=== PATIENT | female | born 1945 | race Hispanic/Latino ===

== ENCOUNTER 2017-09-06 09:03 | Inpatient (IN) | payer MEDICARE, BC ==
[2017-09-06 09:11] VITALS: BMI 24.0
[2017-09-06] MEDS ORDERED: Sodium Chloride 0.9% 1,000 ML IV STA (09:38)
--- NOTE | 2017-09-06 09:44 | ED PDOC ---
Arrival/HPI - General Chief Complaint: Abdominal Pain Time Seen by Provider: 09/06/17 09:10 Historian: Patient - History of Present Illness Narrative History of Present Illness (Text): 09/06/17 09:41 Patient c/o low abdominal pain R>L started from last night and associated with nausea. Patient denies nausea/diarrhea/constipation/urinary symptoms/fever/ chest pain/SOB. Patient sts she was diagnosed with UTI 3 days ago by her PMD and was put on Amoxicillin 2 days ago. 09/06/17 09:46 Time/Duration: Other (from last night) Symptom Onset: Gradual Symptom Course: Worsening Quality: Gas Like Activities at Onset: Rest Past Medical History - Provider Review Nursing Documentation Reviewed: Yes - Infectious Disease Hx of Infectious Diseases: None - Tetanus Immunization Tetanus Immunization: Unknown - Reproductive Menopause: Yes - Cardiac Hx Cardiac Disorders: Yes Hx Hypertension: Yes Hx Pacemaker: No - Pulmonary Hx Respiratory Disorders: Yes Hx Chronic Obstructive Pulmonary Disease (COPD): Yes Hx Emphysema: Yes - Neurological Hx Paralysis: No - HEENT Hx Cataracts: (removal) - Renal Hx Renal Disorder: No - Endocrine/Metabolic Hx Endocrine Disorders: Yes Hx Diabetes Mellitus Type 2: Yes - Hematological/Oncological Hx Blood Disorders: Yes Hx Blood Transfusions: Yes (+ iron replacement) Hx Blood Transfusion Reaction: No - Integumentary Hx Dermatological Disorder: No - Musculoskeletal/Rheumatological Hx Musculoskeletal Disorders: Yes Hx Arthritis: Yes - Gastrointestinal Hx Gastrointestinal Disorders: Yes Hx Diverticulitis: Yes Hx Gastritis: Yes Hx Gastroesophageal Reflux: Yes - Genitourinary/Gynecological Hx Genitourinary Disorders: No - Psychiatric Hx Psychophysiologic Disorder: No Hx Emotional Abuse: No Hx Physical Abuse: No Hx Substance Use: No - Surgical History Other/Comment: bilateral knee replacement - Anesthesia Hx Anesthesia: Yes Hx Anesthesia Reactions: No Hx Malignant Hyperthermia: No - Suicidal Assessment Feels Threatened In Home Enviroment: No Family/Social History - Physician Review Nursing Documentation Reviewed: Yes Family/Social History: Unknown Family HX Smoking Status: Former Smoker Hx Alcohol Use: No Hx Substance Use: No Allergies/Home Meds Allergies/Adverse Reactions: Allergies levofloxacin [From Levaquin] Allergy (Severe, Verified 01/07/16 08:13) PAIN Home Medications: Home Meds Medication Instructions Recorded Confirmed Montelukast [Singulair] 10 mg PO HS 12/14/13 09/06/17 amLODIPine [Norvasc] 5 mg PO QAM 05/26/15 09/06/17 Metformin HCl [Metformin] 1,000 mg PO BID 08/19/15 09/06/17 Tiotropium [Spiriva] 18 mcg IH DAILY 08/19/15 09/06/17 ALPRAZolam [Xanax] 1 mg PO TID PRN 01/07/16 09/06/17 Aspirin [Ecotrin] 81 mg PO DAILY 01/07/16 09/06/17 Ferrous Fumarate [Sophy-Sequel] 500 mg PO DAILY 01/07/16 09/06/17 Glimepiride [amaRYL] 2 mg PO DAILY 01/07/16 09/06/17 Magnesium Oxide [Pharmassure 500 mg PO DAILY 01/07/16 09/06/17 Magnesium] Multivitamin [One Daily] 1 tab PO DAILY 01/07/16 09/06/17 Lvrgq-3-Mcny Ethyl Esters [OMEGA 3] 500 mg PO DAILY 01/07/16 09/06/17 Pravastatin Sodium [Pravachol] 20 mg PO HS 01/07/16 09/06/17 Valsartan [Diovan] 320 mg PO QAM 01/07/16 09/06/17 Omeprazole [Prilosec] 20 mg PO DAILY 02/02/16 09/06/17 Bupropion HCl [Bupropion HCl Xl] 300 mg PO DAILY 06/07/17 09/06/17 H A Joint 1 cap PO DAILY 06/07/17 09/06/17 Meloxicam [Mobic] 15 mg PO DAILY 06/07/17 09/06/17 Ondansetron [Zofran] 4 mg PO Q4H PRN 06/07/17 09/06/17 QUEtiapine [SEROquel] 100 mg PO BID 06/07/17 09/06/17 Vortioxetine Hydrobromide 20 mg PO DAILY 06/07/17 09/06/17 [Trintellix] Amoxicillin/Clavulanate [Augmentin 250 mg PO BID 09/06/17 09/06/17 250 MG-125 MG Tab] Budesonide/Formoterol Fumarate 2 puff IH BID 09/06/17 09/06/17 [Symbicort 160-4.5 Mcg Inhaler] Review of Systems - Physician Review All systems were reviewed & negative as marked: Yes - Review of Systems Gastrointestinal: Abdominal Pain, Nausea. absent: Constipation, Diarrhea, Vomiting Physical Exam Vital Signs Reviewed: Yes Vital Signs Temp Pulse Resp BP Pulse Ox 09/06/17 17:00 90 17 145/86 98 09/06/17 15:00 88 17 147/82 95 09/06/17 13:00 89 17 149/65 96 09/06/17 11:04 92 H 17 148/70 98 09/06/17 09:04 98.4 F 90 17 150/64 94 L Temperature: Afebrile Blood Pressure: Hypertensive Pulse: Regular Respiratory Rate: Normal Appearance: Positive for: Well-Appearing Pain Distress: None Mental Status: Positive for: Alert and Oriented X 3 - Systems Exam Head: Present: Atraumatic, Normocephalic Pupils: Present: PERRL Extroacular Muscles: Present: EOMI Conjunctiva: Present: Normal Mouth: Present: Moist Mucous Membranes Neck: Present: Normal Range of Motion Respiratory/Chest: Present: Clear to Auscultation, Good Air Exchange. No: Respiratory Distress, Accessory Muscle Use, Wheezes Cardiovascular: Present: Regular Rate and Rhythm Abdomen: Present: Tenderness (RLQ), Normal Bowel Sounds, Rebound, Guarding, McBurney's Point Tender. No: Distention Back: Present: Normal Inspection. No: Midline Tenderness Upper Extremity: Present: Normal Inspection, Normal ROM. No: Edema Lower Extremity: Present: Normal Inspection. No: Edema, CALF TENDERNESS Neurological: Present: GCS=15, Speech Normal, Motor Func Grossly Intact Skin: Present: Warm, Dry, Normal Color. No: Rashes Psychiatric: Present: Alert, Oriented x 3, Normal Insight, Normal Concentration Medical Decision Making ED Course and Treatment: 09/06/17 09:51 Plan: labs, CT abdomen with po and IV contrast, IVF. 09/06/17 Case was d/w Octavia (CALOS who works with patient's PMD ). She sts has a family emergency and is unavailable for this weeksend. she asked patient to be admitted to Hospitalist service and to call for surgery consult. and surgical assistant certified were contacted. case was d/w Hospitalist association executive who accepted patient to his service for admission. Zosyn IVPB and Morphine IV were ordered. - Lab Interpretations Lab Results: 09/06/17 10:00 09/06/17 13:00 Lab Results 09/06/17 13:00: Sodium 136, Potassium 4.1, Chloride 100, Carbon Dioxide 28, Anion Gap 12, BUN 10, Creatinine 0.6 L, Est GFR ( Amer) > 60, Est GFR ( Non-Af Amer) > 60, Random Glucose 172 H, Calcium 10.4, Total Bilirubin 0.8, AST 16, ALT 32, Alkaline Phosphatase 87, Lactate Dehydrogenase 303 L, Total Creatine Kinase < 20 L, Troponin I < 0.01 D, Total Protein 7.0, Albumin 4.1, Globulin 3.0, Albumin/Globulin Ratio 1.4, Amylase 39, Lipase 22 L 09/06/17 10:50: Lactic Acid 1.3 09/06/17 10:00: Urine Color Yellow, Urine Appearance Clear, Urine pH 6.5, Ur Specific [place] <= 1.005, Urine Protein Negative, Urine Glucose (UA) Negative, Urine Ketones Negative, Urine Blood Negative, Urine Nitrate Negative, Urine Bilirubin Negative, Urine Urobilinogen 0.2, Ur Leukocyte Esterase Small H, Urine RBC Negative, Urine WBC 1 - 3, Ur Epithelial Cells 1 - 3, Urine Bacteria Few 09/06/17 10:00: PT 13.1 H, INR 1.19 H, APTT 52.5 H 09/06/17 10:00: WBC 12.4 H D, RBC 4.29, Hgb 11.5 L, Hct 35.8 L, MCV 83.4, MCH 26.8, MCHC 32.1, RDW 15.7 H, Plt Count 384, MPV 8.5, Gran % 83.7 H, Lymph % ( Auto) 8.8 L, [place] % (Auto) 7.0 H, Eos % (Auto) 0.3 L, Baso % (Auto) 0.2, Gran # 10.40 H, Lymph # 1.1 L, [place] # 0.9 H, Eos # 0.0, Baso # 0.03 - RAD Interpretation Narrative RAD Interpretations (Text): 09/06/17 18:01 Accession No. : [id number] Patient Name / ID : DENIZ REYNA / [id number] Exam Date : 09/06/2017 14:19:50 ( Approved ) Study Comment : Sex / Age : F / 72Y Creator : Sabas Rodas MD Dictator : Sabas Rodas MD Striker Off : Densitometrist : Sabas Rodas MD Approver2 : Report Date : 09/06/2017 15:23:28 My Comment : PROCEDURE: CT Abdomen and Pelvis with contrast HISTORY: RLQ abd pain COMPARISON: None. TECHNIQUE: Contrast dose: 100 cc of Omni 350 Radiation dose: Total exam DLP = 713 mGy-cm. This CT exam was performed using one or more of the following dose reduction techniques: Automated exposure control, adjustment of the mA and/or kV according to patient size, and/or use of iterative reconstruction technique. FINDINGS: LOWER THORAX: Unremarkable. LIVER: Unremarkable. No gross lesion or ductal dilatation. GALLBLADDER AND BILE DUCTS: Unremarkable. PANCREAS: Unremarkable. No gross lesion or ductal dilatation. SPLEEN: Unremarkable. ADRENALS: Unremarkable. No mass. KIDNEYS AND URETERS: Unremarkable. No hydronephrosis. No solid mass. VASCULATURE: Unremarkable. No aortic aneurysm. BOWEL: There is a large mass in the cecum. This measures 4 x 5 cm. 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 The findings were discussed with Dr. Zapata at 3:10 p.m. APPENDIX: There is evidence of acute appendicitis. The appendix is dilated to a diameter of 13 mm. There is thickening of the appendiceal wall and there is surrounding inflammation. There is no evidence of abscess. PERITONEUM: Unremarkable. No free fluid. No free air. LYMPH NODES: Unremarkable. No enlarged lymph nodes. BLADDER: Unremarkable. REPRODUCTIVE: Unremarkable. BONES: No acute fracture. OTHER FINDINGS: None. 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 Radiology Orders: 09/06/17 09:48 ABD PELVIS PO & IV CONTRAST [CT] Stat Complaint Coordinator: Radiologist - EKG Interpretation EKG Interpretation (Text): 09/06/17 14:08 Normal sinus rhythm Low voltage QRS Borderline ECG HR 88 bpm Interpreted by ED Physician: Yes Type: 12 lead EKG - Medication Orders Current Medication Orders: Sodium Chloride (Sodium Chloride 0.9%) 1,000 mls @ 100 mls/hr IV .Q10H STA Stop: 09/06/17 19:37 Last Admin: 09/06/17 10:08 Dose: 100 mls/hr eMAR Start Stop Document 09/06/17 10:08 SF (Rec: 09/06/17 10:09 SF [id number]) Intravenous Solution Start Date 09/06/17 Start Time 10:08 End Date 09/06/17 End time 22:08 Total Infusion Time 720 Discontinued Medications Piperacillin Sod/Tazobactam Sod (Zosyn 3.375 In Ns 100ml) 100 mls @ 200 mls/hr IVPB STAT STA PRN Reason: Protocol Stop: 09/06/17 15:51 Last Admin: 09/06/17 16:18 Dose: 200 mls/hr eMAR Start Stop Document 09/06/17 16:18 SF (Rec: 09/06/17 16:19 SF [id number]) Intravenous Solution Start Date 09/06/17 Start Time 16:18 End Date 09/06/17 End time 16:48 Total Infusion Time 30 Morphine Sulfate (Morphine) 4 mg IM STAT STA Stop: 09/06/17 17:50 Disposition/Present on Arrival - Present on Arrival Any Indicators Present on Arrival: No History of DVT/PE: No History of Uncontrolled Diabetes: Yes Urinary Catheter: No History of Decub. Ulcer: No History Surgical Site Infection Following: None - Disposition Have Diagnosis and Disposition been Completed?: Yes Diagnosis: Acute appendicitis, Mass of cecum Disposition: HOSPITALIZED Disposition Time: 17:35 Patient Plan: Admission Patient Problems: Current Active Problems Problem Status Onset Acute appendicitis Acute Mass of cecum Acute Condition: FAIR
[2017-09-06] MEDS ORDERED: Iohexol 240 (50 ml) ONE (09:51)
[2017-09-06 10:09] LABS: BASO # 0.03 K/mm3 (0.0-2.0); BASO % 0.2 % (0.0-3.0); EOS % 0.3 % (1.5-5.0); GRAN # 10.4 (1.4-6.5); GRAN % 83.7 % (50.0-68.0); HEMATOCRIT 35.8 % (36.0-48.0); LYMPH # 1.1 (1.2-3.4); LYMPH % 8.8 % (22.0-35.0); MEAN CELL VOLUME 83.4 fl (80.0-105.0); MEAN CORPUSCULAR HEMOGLOBIN 26.8 pg (25.0-35.0); MEAN CORPUSCULAR HGB CONC 32.1 g/dl (31.0-37.0); MEAN PLATELET VOLUME 8.5 fl (7.0-11.0); MONO # 0.9 (0.1-0.6); PH,URINE 6.5 (4.7-8.0); RED CELL DISTRIBUTION WIDTH 15.7 % (11.5-14.5); URINE BILIRUBIN NEGATIVE (NEGATIVE); URINE BLOOD NEGATIVE (NEGATIVE); URINE GLUCOSE (UA) NEGATIVE (NEGATIVE); URINE KETONE NEGATIVE (NEGATIVE); URINE LEUKOCYTE ESTERASE SMALL Leu/uL (NEGATIVE); URINE PROTEIN NEGATIVE mg/dL (<30 mg/dL); URINE UROBILINOGEN 0.2 E.U./dL (<1 E.U./dL); WHITE BLOOD COUNT 12.4 10^3/ul (4.5-11.0)
[2017-09-06 10:16] LABS: URINE APPEARANCE CLEAR (CLEAR); URINE COLOR YELLOW (YELLOW)
[2017-09-06 10:19] LABS: URINE BACTERIA FEW (NEG); URINE RBC NEGATIVE /hpf (0-2)
[2017-09-06 10:26] LABS: INR 1.19 (0.93-1.08); PARTIAL THROMBOPLASTIN TIME 52.5 Seconds (25.1-36.5)
--- NOTE | 2017-09-06 11:18 | CARD ---
APPROVED REPORT EKG Measurement Heart [id number] <Conclusion> Normal sinus rhythm Low voltage QRS Borderline ECG
[2017-09-06] MEDS ORDERED: Iohexol 350 MG/100 ML VIAL ONE (12:47)
[2017-09-06 13:28] LABS: ALB/GLOB RATIO 1.4 (1.1-1.8); ALKALINE PHOSPHATASE 87 U/L (38-126); ALT/SGPT 32 U/L (7-56); AMYLASE 39 U/L (35-125); AST/SGOT 16 U/L (14-36); BILIRUBIN,TOTAL 0.8 mg/dL (0.2-1.3); BLOOD UREA NITROGEN 10 mg/dL (7-21); CALCIUM 10.4 mg/dL (8.4-10.5); CARBON DIOXIDE 28 mmol/L (21-33); CHLORIDE 100 mmol/L (95-110); GFR AFRICAN-AMERICAN > 60; GLUCOSE,RANDOM 172 mg/dL (70-110); LIPASE 22 U/L (23-300); POTASSIUM 4.1 mmol/L (3.6-5.0); SODIUM 136 mmol/L (132-148)
[2017-09-06 13:46] LABS: TROPONIN I < 0.01 ng/mL
[2017-09-06] MEDS ORDERED: Piperacillin/Tazobact 3.375 gm 100 ML IVPB STA (15:22)
--- NOTE | 2017-09-06 15:25 | CT ---
PROCEDURE: CT Abdomen and Pelvis with contrast HISTORY: RLQ abd pain COMPARISON: None. TECHNIQUE: Contrast dose: 100 cc of Omni 350 Radiation dose: Total exam DLP = 713 mGy-cm. This CT exam was performed using one or more of the following dose reduction techniques: Automated exposure control, adjustment of the mA and/or kV according to patient size, and/or use of iterative reconstruction technique. FINDINGS: LOWER THORAX: Unremarkable. LIVER: Unremarkable. No gross lesion or ductal dilatation. GALLBLADDER AND BILE DUCTS: Unremarkable. PANCREAS: Unremarkable. No gross lesion or ductal dilatation. SPLEEN: Unremarkable. ADRENALS: Unremarkable. No mass. KIDNEYS AND URETERS: Unremarkable. No hydronephrosis. No solid mass. VASCULATURE: Unremarkable. No aortic aneurysm. BOWEL: There is a large mass in the cecum. This measures 4 x 5 cm. 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 The findings were discussed with Dr. Zapata at 3:10 p.m. APPENDIX: There is evidence of acute appendicitis. The appendix is dilated to a diameter of 13 mm. There is thickening of the appendiceal wall and there is surrounding inflammation. There is no evidence of abscess. PERITONEUM: Unremarkable. No free fluid. No free air. LYMPH NODES: Unremarkable. No enlarged lymph nodes. BLADDER: Unremarkable. REPRODUCTIVE: Unremarkable. BONES: No acute fracture. OTHER FINDINGS: None. 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
[2017-09-06] MEDS ORDERED: Morphine 4 mg/ml ISec IM STA (17:49)
[2017-09-06] MEDS ORDERED: Morphine 2 mg/ml ISec IVP PRN (18:32)
--- NOTE | 2017-09-06 18:40 | CP.PCM.HP ---
<Fritz Miller - Last Filed: 09/06/17 18:51> History of Present Illness - History of Present Illness History of Present Illness: Dr. Carson Service 72 F with a PMHx of COPD HLD, HTN, DM2, GERD, OA, and anemia [place] [facility] [place] complaints of b/l intermittent lower abdominal pain with associated nausea. Pt states that the symptoms began last night and continued today to the point where the patient felt compelled to have her symptoms further evaluated. Pt had a bm this morning, however did not eat anything today. She noted not having much of an appetite lately. Pt was recently seen by PMD Dr. Johnson for UTI approx. 3 days ago and started on Amoxicillin 2 days ago. Denied any extraordinary foods, recent travels, fever, chills, sob, chest pains, v/d/c or urinary symptoms. Pt admitted to night sweats and unintended wt loss over the past yr of approx 20 lbs. Pt noted that she is hungry at this time. PMHx: COPD HLD, HTN, DM2, GERD, OA, and anemia PSHx: B/L Knee Replacement, cataracts, colonoscopy SHx: Quit smoking 1984, denied etoh or illicits Meds; Symbicort, trintellex, buproprion, Xanax, mag ox, glimepride, ferros fumarate, asa, metformin, Mobic, pravastatin, Zofran, omega 3, montelukast, Spiriva, diovan, Prilosec, augmentin, Seroquel, Norvasc Allergies: Levofloxacin PMD: Dr. Johnson Present on Admission - Present on Admission Any Indicators Present on Admission: Yes History of Uncontrolled Diabetes: Yes Review of Systems - Review of Systems Review of Systems: As per HPI Otherwise Negative Past Patient History - Infectious Disease Hx of Infectious Diseases: None - Tetanus Immunizations Tetanus Immunization: Unknown - Past Social History Smoking Status: Former Smoker - CARDIAC Hx Cardiac Disorders: Yes Hx Hypertension: Yes Hx Pacemaker: No - PULMONARY Hx Respiratory Disorders: Yes Hx Chronic Obstructive Pulmonary Disease (COPD): Yes Hx Emphysema: Yes - NEUROLOGICAL Hx Paralysis: No - HEENT Hx Cataracts: (removal) - RENAL Hx Chronic Kidney Disease: No - ENDOCRINE/METABOLIC Hx Endocrine Disorders: Yes Hx Diabetes Mellitus Type 2: Yes - HEMATOLOGICAL/ONCOLOGICAL Hx Blood Disorders: Yes Hx Blood Transfusions: Yes (+ iron replacement) Hx Blood Transfusion Reaction: No - INTEGUMENTARY Hx Dermatological Problems: No - MUSCULOSKELETAL/RHEUMATOLOGICAL Hx Musculoskeletal Disorders: Yes Hx Arthritis: Yes - GASTROINTESTINAL Hx Gastrointestinal Disorders: Yes Hx Diverticulitis: Yes Hx Gastritis: Yes Hx Gastroesophageal Reflux: Yes - GENITOURINARY/GYNECOLOGICAL Hx Genitourinary Disorders: No - PSYCHIATRIC Hx Psychophysiologic Disorder: No Hx Emotional Abuse: No Hx Physical Abuse: No Hx Substance Use: No - SURGICAL HISTORY Other/Comment: bilateral knee replacement - ANESTHESIA Hx Anesthesia: Yes Hx Anesthesia Reactions: No Hx Malignant Hyperthermia: No Meds Allergies/Adverse Reactions: Allergies Allergy/AdvReac Type Severity Reaction Status Date / Time levofloxacin [From Levaquin] Allergy Severe PAIN Verified 01/07/16 08:13 Physical Exam - Constitutional Appears: No Acute Distress - Head Exam Head Exam: ATRAUMATIC, NORMAL INSPECTION, NORMOCEPHALIC - Eye Exam Eye Exam: EOMI, Normal appearance, PERRL Pupil Exam: NORMAL ACCOMODATION, PERRL - ENT Exam ENT Exam: Mucous Membranes Moist, Normal Exam - Neck Exam Neck exam: Positive for: Normal Inspection - Respiratory Exam Respiratory Exam: Clear to Auscultation Bilateral, NORMAL BREATHING PATTERN - Cardiovascular Exam Cardiovascular Exam: REGULAR RHYTHM, +S1, +S2 - GI/Abdominal Exam GI & Abdominal Exam: Normal Bowel Sounds, Rebound, Soft, Tenderness. absent: Guarding, Rigid Additional comments: RLQ, + Mcburneys, + Obturator - Extremities Exam Extremities exam: Positive for: normal inspection - Neurological Exam Neurological exam: Alert, CN II-XII Intact, Oriented x3, Reflexes Normal - Psychiatric Exam Psychiatric exam: Normal Affect, Normal Mood - Skin Skin Exam: Dry, Intact, Normal Color, Warm Results - Vital Signs Recent Vital Signs: Last Vital Signs Temp 98.4 F 09/06/17 09:04 Pulse 88 09/06/17 18:07 Resp 17 09/06/17 17:00 BP 141/80 09/06/17 18:07 Pulse Ox 98 09/06/17 17:00 - Labs Result Diagrams: 09/06/17 10:00 09/06/17 13:00 Assessment & Plan - Assessment and Plan (Free Text) Assessment: 72 F with PMHx of COPD, HTN, DM2, GERD, and Anemia presents to the ED with complaints of abdominal pain, found to have acute appenidicitis and mass of cecum. Acute Appendicitis - surgery consulted, Dr. Andreson. - CT Abd PO & IV : Evidence of appendicitis with dilatation to 13mm with appendiceal wall thickening and surrounding inflammation without abscess. - NPO, NS @100 - zofran, morphine prn - Flagyl & Rocephin - Zosyn in ED Large Cecal Mass - hx of Colonoscopy demonstrating polyps in sigmoid and rectum bx demonstrating tubular adenoma - CT Abd PO & IV: Demonstrated large cecum mass measuring 4x 5cm with apple core appearance consistent with annular cecal malignancy. - GI Consulted, Dr. Azar, fu reccs Leukocytosis - UTI/Appendicitis - Flagyl and Rocephin - fu Cx - monitor for fevers - VSS DM2 - hold oral antihyperglycemics - ISS - Accuchecks HTN - Hold home meds for now - Continue to monitor COPD - Duonebs prn GI ppx - protonix DVT - SCDs, will discuss when pt is to be taken for OR and adjust if needed Seen reviewed and discussed with attending <Kailash Carson - Last Filed: 09/07/17 07:37> Results - Vital Signs Recent Vital Signs: Last Vital Signs Temp 98.4 F 09/06/17 22:38 Pulse 87 09/06/17 22:38 Resp 17 09/06/17 22:38 BP 136/60 09/06/17 22:38 Pulse Ox 95 09/06/17 18:49 - Labs Result Diagrams: 09/07/17 06:00 09/07/17 06:00 Labs: Laboratory Results - last 24 hr 09/06/17 09/06/17 09/06/17 20:27 20:27 20:27 WBC RBC Hgb Hct MCV MCH MCHC RDW Plt Count MPV Gran % Lymph % (Auto) [place] % (Auto) Eos % (Auto) Baso % (Auto) Gran # Lymph # [place] # Eos # Baso # PT INR APTT 51.8 H Sodium Potassium Chloride Carbon Dioxide Anion Gap BUN Creatinine Est GFR ( Amer) Est GFR (Non-Af Amer) POC Glucose (mg/dL) Random Glucose Calcium Phosphorus Magnesium Total Bilirubin AST ALT Alkaline Phosphatase Total Protein Albumin Globulin Albumin/Globulin Ratio Carcinoembryonic Ag 11.4 H Blood Type O POSITIVE Antibody Screen Negative Crossmatch See Detail BBK History Checked Patient has bt 09/06/17 09/07/17 09/07/17 20:51 06:00 06:00 WBC 9.7 D RBC 3.69 Hgb 9.8 L Hct 31.0 L MCV 84.0 MCH 26.6 MCHC 31.6 RDW 15.6 H Plt Count 273 MPV 8.3 Gran % 77.9 H Lymph % (Auto) 12.[address] % (Auto) 8.8 H Eos % (Auto) 1.1 L Baso % (Auto) 0.2 Gran # 7.53 H Lymph # 1.2 [place] # 0.9 H Eos # 0.1 Baso # 0.02 PT INR APTT Sodium 139 Potassium 3.8 Chloride 103 Carbon Dioxide 28 Anion Gap 12 BUN 9 Creatinine 0.7 Est GFR ( Amer) > 60 Est GFR (Non-Af Amer) > 60 POC Glucose (mg/dL) 193 H Random Glucose 144 H Calcium 9.3 Phosphorus 3.6 Magnesium 1.6 L Total Bilirubin 0.7 AST 13 L ALT 32 Alkaline Phosphatase 73 Total Protein 6.0 Albumin 3.4 Globulin 2.7 Albumin/Globulin Ratio 1.3 Carcinoembryonic Ag Blood Type Antibody Screen Crossmatch BBK History Checked 09/07/17 09/07/17 06:00 07:14 WBC RBC Hgb Hct MCV MCH MCHC RDW Plt Count MPV Gran % Lymph % (Auto) [place] % (Auto) Eos % (Auto) Baso % (Auto) Gran # Lymph # [facility] # Eos # Baso # PT 15.8 H INR 1.43 H APTT 50.5 H Sodium Potassium Chloride Carbon Dioxide Anion Gap BUN Creatinine Est GFR ( Amer) Est GFR (Non-Af Amer) POC Glucose (mg/dL) 125 H Random Glucose Calcium Phosphorus Magnesium Total Bilirubin AST ALT Alkaline Phosphatase Total Protein Albumin Globulin Albumin/Globulin Ratio Carcinoembryonic Ag Blood Type Antibody Screen Crossmatch BBK History Checked Attending/Attestation - Attestation I have personally seen and examined this patient.: Yes I have fully participated in the care of the patient.: Yes I have reviewed all pertinent clinical information: Yes Notes (Text): 09/07/17 07:34 72 year old female with past medical history of COPD, hypertension, diabetes and anemia who presents with complaint of RLQ pain. CT abd/pelvis showed acute appendicitis and large cecum mass 4x5 cm. GI and surgery evaluation are requested. Continue with NPO, IVF, analgesics and antibiotics. Continue with insulin ss for diabetes and duonebs for history of COPD. Kailash Carson MD Hospitalist.
--- NOTE | 2017-09-06 21:02 | CP.PCM.CON ---
History of Present Illness - History of Present Illness History of Present Illness: Surgery: Dr. Anderson CC: lower abdominal pain HPI: Patient is a 72 y/o female who presents complaining of acute onset abdominal pain that started last night. She states the pain was moderate in nature and felt more like "gas pain". She states the pain was located in the lower abdomen bilaterally but as time progressed was more severe on the right lower abdomen. As of 8am this morning pain had become severe which prompted ER visit. Patient given morphine in ER which relieved the pain. She reports normal bowel movement yesterday, no black or bloody stools. She states she normally does not tolerated eating very well but has not eaten at all today 2/2 pain. She denies f/c/n/v. She reports 20lbs weight loss over the past year which she attributes to not eating well, food makes her nauseous. She see GI doctor regularly for symptoms. She had EGD and colonoscopy in December2015, biopsies were taken at the time and found to be benign. PMH: emphysema, DM, HTN, colon polyps, arthritis, chronic anemia on Iron supp. PSH: bilateral knee replacement, colonoscopy/EGD., neck soft tissue mass removal 2014 (benign) Social: prior tobacco use for approximately 30yrs, quit about 20yrs ago. Denies etoh or drug use Review of Systems - Review of Systems All systems: reviewed and no additional remarkable complaints except Review of Systems: unless stated in HPI Past Patient History - Infectious Disease Hx of Infectious Diseases: None - Tetanus Immunizations Tetanus Immunization: Unknown - Past Social History Smoking Status: Former Smoker - CARDIAC Hx Cardiac Disorders: Yes Hx Hypertension: Yes Hx Pacemaker: No - PULMONARY Hx Respiratory Disorders: Yes Hx Chronic Obstructive Pulmonary Disease (COPD): Yes Hx Emphysema: Yes - NEUROLOGICAL Hx Paralysis: No - HEENT Hx Cataracts: (removal) - RENAL Hx Chronic Kidney Disease: No - ENDOCRINE/METABOLIC Hx Endocrine Disorders: Yes Hx Diabetes Mellitus Type 2: Yes - HEMATOLOGICAL/ONCOLOGICAL Hx Blood Disorders: Yes Hx Blood Transfusions: Yes (+ iron replacement) Hx Blood Transfusion Reaction: No - INTEGUMENTARY Hx Dermatological Problems: No - MUSCULOSKELETAL/RHEUMATOLOGICAL Hx Musculoskeletal Disorders: Yes Hx Arthritis: Yes - GASTROINTESTINAL Hx Gastrointestinal Disorders: Yes Hx Diverticulitis: Yes Hx Gastritis: Yes Hx Gastroesophageal Reflux: Yes - GENITOURINARY/GYNECOLOGICAL Hx Genitourinary Disorders: No - PSYCHIATRIC Hx Psychophysiologic Disorder: No Hx Emotional Abuse: No Hx Physical Abuse: No Hx Substance Use: No - SURGICAL HISTORY Other/Comment: bilateral knee replacement - ANESTHESIA Hx Anesthesia: Yes Hx Anesthesia Reactions: No Hx Malignant Hyperthermia: No Meds Allergies/Adverse Reactions: Allergies Allergy/AdvReac Type Severity Reaction Status Date / Time levofloxacin [From Levaquin] Allergy Severe PAIN Verified 01/07/16 08:13 - Medications Medications: Current Medications Albuterol/Ipratropium (Duoneb 3 Mg/0.5 Mg (3 Ml) Ud) 3 ml IH Q4H PRN PRN Reason: Shortness of Breath Metronidazole (Flagyl) 500 mg in 100 mls @ 100 mls/hr IVPB Q8 RAYMUNDO PRN Reason: Protocol Ceftriaxone Sodium (Rocephin 1 Gram Ivpb) 1 gm in 100 mls @ 100 mls/hr IVPB DAILY RAYMUNDO PRN Reason: Protocol Insulin Human Lispro (Humalog Med) 0 units SC ACHS RAYMUNDO PRN Reason: Protocol Morphine Sulfate (Morphine) 2 mg IVP Q4H PRN PRN Reason: Pain, moderate (4-7) Ondansetron HCl (Zofran Inj) 4 mg IVP Q4H PRN PRN Reason: Nausea/Vomiting Pantoprazole Sodium (Protonix Inj) 40 mg IVP DAILY [facility] Physical Exam - Constitutional Appears: Non-toxic, No Acute Distress - Head Exam Head Exam: ATRAUMATIC, NORMOCEPHALIC - Eye Exam Eye Exam: EOMI. absent: Scleral icterus - ENT Exam ENT Exam: Mucous Membranes Moist - Neck Exam Neck exam: Negative for: Lymphadenopathy - Respiratory Exam Respiratory Exam: NORMAL BREATHING PATTERN. absent: Respiratory Distress - Cardiovascular Exam Cardiovascular Exam: REGULAR RHYTHM. absent: Tachycardia - GI/Abdominal Exam GI & Abdominal Exam: Soft, Tenderness (+ McBurney's ). absent: Distended, Guarding, Rebound, Rigid - Rectal Exam Rectal Exam: Deferred - Extremities Exam Extremities exam: Positive for: normal inspection. Negative for: calf tenderness - Neurological Exam Neurological exam: Alert, Oriented x3 - Psychiatric Exam Psychiatric exam: Normal Affect, Normal Mood - Skin Skin Exam: Dry, Normal Color, Warm Results - Vital Signs Recent Vital Signs: Last Vital Signs Temp 98.4 F 09/06/17 09:04 Pulse 87 09/06/17 18:49 Resp 17 09/06/17 18:49 BP 136/60 09/06/17 18:49 Pulse Ox 95 09/06/17 18:49 - Labs Result Diagrams: 09/06/17 10:00 09/06/17 13:00 Labs: Laboratory Results - last 24 hr 09/06/17 20:27 APTT 51.8 H - Impressions Impression: CT scan w/ PO contrast: dilated appendix to 13mm w/ periappendiceal inflammation as well as cecal mass, 4.5cm in greatest diameter Assessment & Plan - Assessment and Plan (Free Text) Assessment: 72 y/o female w/ appendicitis most likely related to cecal mass Plan: -plan for OR tomorrow for appendicitis, will most likely need right hemicolectomy considering large cecal mass -NPO pmn -IVFs -IV abx -pain control -type and cross 2 units on hold for OR in am -am labs -surgical plan d/w patient and patient agrees -recommend GI consult -plan of care d/w attending Dr. Justin Wayne PGY3
[2017-09-06] MEDS ORDERED: Morphine 4 mg/ml ISec IVP PRN (21:08)
[2017-09-06] MEDS: Insulin Lispro (humaLOG) MEDIUM Coverage SC SCH (21:23)
[2017-09-06] MEDS: metroNIDAZOLE IV 500 mg/100 ml 500 MG/100 ML BAG IVPB SCH (21:31)
[2017-09-06] MEDS: Lactated Ringer's 1,000 ML IV SCH (21:31)
[2017-09-06] MEDS: Morphine 2 mg/ml ISec IVP PRN (22:08)
[2017-09-06] MEDS ORDERED: Influenza Vaccine 60 mcg/0.5 mL SYR (4YR UP) IM ONE (23:03)
[2017-09-06] MEDS ORDERED: Pneumococcal 23-Valent Vaccine IM ONE (23:03)
[2017-09-07] MEDS: Morphine 2 mg/ml ISec IVP PRN ×3 (01:38→20:01)
[2017-09-07] MEDS: metroNIDAZOLE IV 500 mg/100 ml 500 MG/100 ML BAG IVPB SCH ×3 (05:13→21:19)
[2017-09-07 06:57] LABS: BASO # 0.02 K/mm3 (0.0-2.0); BASO % 0.2 % (0.0-3.0); EOS # 0.1 (0.0-0.7); EOS % 1.1 % (1.5-5.0); GRAN # 7.53 (1.4-6.5); GRAN % 77.9 % (50.0-68.0); LYMPH # 1.2 (1.2-3.4); MEAN CORPUSCULAR HEMOGLOBIN 26.6 pg (25.0-35.0); MEAN CORPUSCULAR HGB CONC 31.6 g/dl (31.0-37.0); MEAN PLATELET VOLUME 8.3 fl (7.0-11.0); MONO # 0.9 (0.1-0.6); MONO % 8.8 % (1.0-6.0); RED CELL DISTRIBUTION WIDTH 15.6 % (11.5-14.5); WHITE BLOOD COUNT 9.7 10^3/ul (4.5-11.0)
[2017-09-07 07:12] LABS: ALB/GLOB RATIO 1.3 (1.1-1.8); ALKALINE PHOSPHATASE 73 U/L (38-126); ALT/SGPT 32 U/L (7-56); AST/SGOT 13 U/L (14-36); BILIRUBIN,TOTAL 0.7 mg/dL (0.2-1.3); BLOOD UREA NITROGEN 9 mg/dL (7-21); CALCIUM 9.3 mg/dL (8.4-10.5); CARBON DIOXIDE 28 mmol/L (21-33); CHLORIDE 103 mmol/L (95-110); GFR AFRICAN-AMERICAN > 60; GLUCOSE,RANDOM 144 mg/dL (70-110); MAGNESIUM 1.6 mg/dL (1.7-2.2); PHOSPHOROUS 3.6 mg/dL (2.5-4.5); POTASSIUM 3.8 mmol/L (3.6-5.0); SODIUM 139 mmol/L (132-148)
[2017-09-07 07:26] LABS: INR 1.43 (0.93-1.08); PARTIAL THROMBOPLASTIN TIME 50.5 Seconds (25.1-36.5)
[2017-09-07] MEDS: Lactated Ringer's 1,000 ML IV SCH (08:37)
[2017-09-07] MEDS: Insulin Lispro (humaLOG) MEDIUM Coverage SC SCH ×4 (08:39→21:17)
--- NOTE | 2017-09-07 09:39 | RAD ---
HISTORY: clearance COMPARISON: 03/02/2017 FINDINGS: LUNGS: No active pulmonary disease. PLEURA: No significant pleural effusion identified, no pneumothorax apparent. CARDIOVASCULAR: Normal. OSSEOUS STRUCTURES: No significant abnormalities. VISUALIZED UPPER ABDOMEN: Normal. OTHER FINDINGS: None. IMPRESSION: No active disease.
[2017-09-07] MEDS: cefTRIAXone 1 gm 1 GM/100 ML BAG IVPB SCH (09:53)
--- NOTE | 2017-09-07 14:23 | CP.PCM.PN ---
<Sesar White - Last Filed: 09/07/17 14:20> Subjective - Date & Time of Evaluation Date of Evaluation: 09/07/17 Time of Evaluation: 09:15 - Subjective Subjective: Patient seen and examined at bedside. Patient resting comfortably in bed. No acute events overnight. Patient reports nausea and continued abdominal discomfort that has improved since admission of her RLQ and LLQ. Patient denies chest pain, shortness of breath, fever, chills, nausea, vomiting, change in bowel habits. Patient is scheduled for potential surgical intervention today with general surgery. Objective - Vital Signs/Intake and Output Vital Signs (last 24 hours): Temp Pulse Resp BP Pulse Ox 99.2 F 85 20 139/67 96 09/07/17 13:17 09/07/17 13:17 09/07/17 13:17 09/07/17 13:17 09/07/17 13:17 Intake and Output: 09/07/17 09/07/17 06:59 18:59 Intake Total 0 Balance 0 - Medications Medications: Current Medications Albuterol/Ipratropium (Duoneb 3 Mg/0.5 Mg (3 Ml) Ud) 3 ml IH Q4H PRN PRN Reason: Shortness of Breath Metronidazole (Flagyl) 500 mg in 100 mls @ 100 mls/hr IVPB Q8 RAYMUNDO PRN Reason: Protocol Last Admin: 09/07/17 05:13 Dose: 100 mls/hr Ceftriaxone Sodium (Rocephin 1 Gram Ivpb) 1 gm in 100 mls @ 100 mls/hr IVPB DAILY RAYMUNDO PRN Reason: Protocol Last Admin: 09/07/17 09:53 Dose: 100 mls/hr Lactated Ringer's (Lactated Ringer's) 1,000 mls @ 100 mls/hr IV .Q10H [facility] Last Admin: 09/07/17 08:37 Dose: 100 mls/hr Insulin Human Lispro (Humalog Med) 0 units SC ACHS RAYMUNDO PRN Reason: Protocol Last Admin: 09/07/17 08:39 Dose: Not Given Morphine Sulfate (Morphine) 2 mg IVP Q4H PRN PRN Reason: Pain, moderate (4-7) Last Admin: 09/07/17 08:44 Dose: 2 mg Morphine Sulfate (Morphine) 4 mg IVP Q4H PRN PRN Reason: Pain, severe (8-10) Last Admin: 09/07/17 05:13 Dose: 4 mg Ondansetron HCl (Zofran Inj) 4 mg IVP Q4H PRN PRN Reason: Nausea/Vomiting Pantoprazole Sodium (Protonix Inj) 40 mg IVP DAILY RAYMUNDO Last Admin: 09/07/17 09:54 Dose: 40 mg - Labs Labs: 09/07/17 06:00 09/07/17 06:00 PT 15.8 SECONDS (9.4-12.5) H 09/07/17 06:00 INR 1.43 (0.93-1.08) H 09/07/17 06:00 APTT 50.5 Seconds (25.1-36.5) H 09/07/17 06:00 - Constitutional Appears: Well, Non-toxic, No Acute Distress - Head Exam Head Exam: ATRAUMATIC, NORMAL INSPECTION, NORMOCEPHALIC - Eye Exam Eye Exam: EOMI, PERRL Pupil Exam: PERRL - ENT Exam ENT Exam: Mucous Membranes Moist - Neck Exam Neck Exam: Full ROM, Normal Inspection. absent: Lymphadenopathy, Thyromegaly - Respiratory Exam Respiratory Exam: Clear to Ausculation Bilateral, NORMAL BREATHING PATTERN. absent: Rales, Rhonchi, Wheezes - Cardiovascular Exam Cardiovascular Exam: REGULAR RHYTHM, +S1, +S2. absent: Murmur - GI/Abdominal Exam GI & Abdominal Exam: Distended, Soft, Tenderness (RLQ>LLQ), Normal Bowel Sounds. absent: Firm, Guarding, Rigid, Organomegaly - Extremities Exam Extremities Exam: Full ROM, Normal Capillary Refill. absent: Calf Tenderness, Tenderness - Back Exam Back Exam: NORMAL INSPECTION - Neurological Exam Neurological Exam: Alert, Awake, CN II-XII Intact, Oriented x3 - Psychiatric Exam Psychiatric exam: Normal Affect, Normal Mood - Skin Skin Exam: Dry, Intact, Normal Color, Warm. absent: Rash Assessment and Plan - Assessment and Plan (Free Text) Assessment: 72 year old female with past medical history that includes COPD, HTN, DM2, GERD , and anemia presented to [facility] ED complaining of abdominal pain, found to have acute appendicitis and mass of cecum measuring 4x5 cm. Patient has been evaluated by General Surgery team and is awaiting potential surgical intervention. Plan: 1. Acute appendicitis - CT abdomen PO and IV: Evidence of appendicitis with dilatation to 13 mm with appendiceal wall thickening and surrounding inflammation without abscess - Patient NPO - Flagyl and Rocephin - Zofran and morphine prn - General surgery has been consulted, potential intervention today 2. CT abdomen evidence of Cecal mass - CT abd/pelvis showed acute appendicitis and large cecum mass 4x5 cm - General surgery consulted - GI consulted, appreciate recs - Patient with history of colonoscopy demonstrating sigmoid and rectum polyps, biopsy done showing tubular adenoma - Flagyl and Roceph 3. Cecal mass and hx of recent weight loss - Patient with history of colonoscopy demonstrating sigmoid and rectum polyps, biopsy done showing tubular adenoma - CEA level elevated - GI following, appreciate recs 3. Leukocytosis - Elevated on admission, today 9.7 - Afebrile - Cultures drawn, f/u 4. DM2 - ISS - Accuchecks 5. HTN - BP stable at this time - Continue to monitor 6. COPD - Duonebs prn GI ppx: Protonix DVT ppx: SCD Case and plan discussed with attending <Kailash Carson - Last Filed: 09/07/17 15:12> Objective - Vital Signs/Intake and Output Vital Signs (last 24 hours): Temp Pulse Resp BP Pulse Ox 99.2 F 85 20 139/67 96 09/07/17 13:17 09/07/17 13:17 09/07/17 13:17 09/07/17 13:17 09/07/17 13:17 Intake and Output: 09/07/17 09/07/17 06:59 18:59 Intake Total 0 Balance 0 - Medications Medications: Current Medications Albuterol/Ipratropium (Duoneb 3 Mg/0.5 Mg (3 Ml) Ud) 3 ml IH Q4H PRN PRN Reason: Shortness of Breath Metronidazole (Flagyl) 500 mg in 100 mls @ 100 mls/hr IVPB Q8 RAYMUNDO PRN Reason: Protocol Last Admin: 09/07/17 05:13 Dose: 100 mls/hr Ceftriaxone Sodium (Rocephin 1 Gram Ivpb) 1 gm in 100 mls @ 100 mls/hr IVPB DAILY RAYMUNDO PRN Reason: Protocol Last Admin: 09/07/17 09:53 Dose: 100 mls/hr Lactated Ringer's (Lactated Ringer's) 1,000 mls @ 100 mls/hr IV .Q10H [facility] Last Admin: 09/07/17 08:37 Dose: 100 mls/hr Insulin Human Lispro (Humalog Med) 0 units SC ACHS RAYMUNDO PRN Reason: Protocol Last Admin: 09/07/17 14:37 Dose: Not Given Magnesium Oxide (Mag-Ox) 400 mg PO ONCE ONE Stop: 09/07/17 18:01 Morphine Sulfate (Morphine) 2 mg IVP Q4H PRN PRN Reason: Pain, moderate (4-7) Last Admin: 09/07/17 08:44 Dose: 2 mg Morphine Sulfate (Morphine) 4 mg IVP Q4H PRN PRN Reason: Pain, severe (8-10) Last Admin: 09/07/17 05:13 Dose: 4 mg Ondansetron HCl (Zofran Inj) 4 mg IVP Q4H PRN PRN Reason: Nausea/Vomiting Pantoprazole Sodium (Protonix Inj) 40 mg IVP DAILY [facility] Last Admin: 09/07/17 09:54 Dose: 40 mg - Labs Labs: 09/07/17 06:00 09/07/17 06:00 PT 15.8 SECONDS (9.4-12.5) H 09/07/17 06:00 INR 1.43 (0.93-1.08) H 09/07/17 06:00 APTT 50.5 Seconds (25.1-36.5) H 09/07/17 06:00 Attending/Attestation - Attestation I have personally seen and examined this patient.: Yes I have fully participated in the care of the patient.: Yes I have reviewed all pertinent clinical information, including history, physical exam and plan: Yes Notes (Text): 09/07/17 15:11 72 year old female with past medical history of COPD, hypertension, diabetes and anemia who presented with complaint of RLQ pain. CT abd/pelvis showed acute appendicitis and large cecum mass 4x5 cm. She is NPO with IVF, analgesics and antibiotics. She was seen by surgery and plan is for appendectomy with possible hemicolectomy today. Case was discussed with GI, Dr. Azar today as well. Continue with insulin ss for diabetes and duonebs for history of COPD. Kailash Carson MD Hospitalist.
[2017-09-07] MEDS ORDERED: Rocuronium 10 mg/ml (5 ml) ONE (14:34)
[2017-09-07] MEDS ORDERED: Midazolam 2 MG/2 ML VIAL ONE (14:34)
[2017-09-07] MEDS ORDERED: Etomidate 20 mg/10ml Inj IV ONE (14:34)
[2017-09-07] MEDS ORDERED: Lidocaine 1% Inj (20ml) ONE (14:34)
[2017-09-07] MEDS ORDERED: metroNIDAZOLE IV 500 mg/100 ml 500 MG/100 ML BAG ONE (14:35)
[2017-09-07] MEDS ORDERED: Bupivacaine 0.5% Inj(30mL) ONE (17:14)
[2017-09-07] MEDS ORDERED: HYDROmorphone 0.5 mg/0.5 ml ISec IVP PRN (17:30)
[2017-09-07] MEDS ORDERED: Lactated Ringer's 1,000 ML IV SCH (17:30)
--- NOTE | 2017-09-07 17:33 | PCM.SURG1 ---
Surgeon's Initial Post Op Note - Surgeon's Notes Surgeon: Dr. [facility] Teacher: Dr. Neri PGY-3, Dr. Fang PGY-3, April Griffin MS4 Type of Anesthesia: General Endo Anesthesia Administered By: Dr. Duckworth Pre-Operative Diagnosis: Cecal Mass, Appendicitis Operative Findings: See operative report Post-Operative Diagnosis: Same Operation Performed: R hemicolectomy Specimen/Specimens Removed: R colon, appendix Estimated Blood Loss: EBL {In ML}: 50 Blood Products Given: N/A Drains Used: Vicente Post-Op Condition: Good Date of Surgery/Procedure: 09/07/17 Time of Surgery/Procedure: 17:33
[2017-09-07] MEDS ORDERED: Magnesium Oxide 400 mg Tab UD PO ONE (18:00)
[2017-09-07] MEDS: Non Formulary Medication (Budesonide/Formoterol Fumarate [Symbicort 160-4.5 Mcg Inhaler] 2 IH SCH (19:26)
[2017-09-08] MEDS ORDERED: Lactated Ringer's 1,000 ML IV SCH (02:11)
--- NOTE | 2017-09-08 03:34 | CON ---
DATE: 09/07/2017 HISTORY OF PRESENT ILLNESS: This patient was seen and evaluated earlier. Discussed with Dr. Anderson. This 72-year-old patient with a past medical history of anemia, COPD, hypertension, dyslipidemia, diabetes mellitus. Admitted with acute onset of abdominal pain in the right lower quadrant area. She was brought to the ER because of the worsening of her symptoms. The patient had recently seen Dr. Johnson for urinary tract infection. PAST MEDICAL HISTORY: Other past medical history significant as above. The patient also gives history of weight loss. Other past medical as above, history of COPD. PAST SURGICAL HISTORY: Bilateral knee replacement, cataract and also EGD colonoscopy. FAMILY HISTORY: Noncontributory. SOCIAL HISTORY: Ex-smoker. Denies alcohol use. REVIEW OF SYSTEMS: Positive as above. PHYSICAL EXAMINATION: GENERAL: On examination, the patient is lying on the bed, not in acute distress. VITAL SIGNS: Temperature 98.8, blood pressure 91/43, pulse 70, respirations 19, and O2 saturation 97% on 2 liters oxygen. HEENT: Atraumatic. Anicteric. NECK: Supple. HEART: S1 and S2 heard. LUNGS: Bilateral air entry present. ABDOMEN: Soft. No mass I could appreciate. Mild tenderness on deep palpation in the left lower quadrant area. No rebound or guarding. EXTREMITIES: No edema. No cyanosis. NEUROLOGIC: Alert and oriented. LABORATORY DATA: Hemoglobin 9.8, hematocrit 31. WBC is 9.7. Platelets 273. Chemistry is essentially unremarkable. IMPRESSION AND PLAN: This 72-year-old patient admitted with right lower quadrant abdominal pain. The CAT, which was reviewed shows a focal thickening of the sigmoid colon and also distended appendix, rule out carcinoma of the cecal area, mass lesion . I would recommend to continue the antibiotics. The patient is scheduled for surgery. Other comorbidities includes diabetes mellitus, hypertension, dyslipidemia. We will continue to closely followup her care and suggest further management based on the clinical course. Александр Azar MD
[2017-09-08] MEDS: Morphine 5 MG/ML SYRINGE IVP PRN ×2 (04:48→09:46)
[2017-09-08] MEDS: metroNIDAZOLE IV 500 mg/100 ml 500 MG/100 ML BAG IVPB SCH ×3 (06:20→21:04)
[2017-09-08 07:40] LABS: BASO # 0.01 K/mm3 (0.0-2.0); BASO % 0.1 % (0.0-3.0); EOS % 0.1 % (1.5-5.0); GRAN # 6.12 (1.4-6.5); GRAN % 81.9 % (50.0-68.0); HEMATOCRIT 29.5 % (36.0-48.0); LYMPH # 0.8 (1.2-3.4); MEAN CELL VOLUME 85.3 fl (80.0-105.0); MEAN CORPUSCULAR HEMOGLOBIN 26.6 pg (25.0-35.0); MEAN CORPUSCULAR HGB CONC 31.2 g/dl (31.0-37.0); MEAN PLATELET VOLUME 8.3 fl (7.0-11.0); MONO # 0.6 (0.1-0.6); MONO % 7.9 % (1.0-6.0); RED CELL DISTRIBUTION WIDTH 15.4 % (11.5-14.5); WHITE BLOOD COUNT 7.5 10^3/ul (4.5-11.0)
[2017-09-08 08:05] LABS: ALB/GLOB RATIO 1.1 (1.1-1.8); ALKALINE PHOSPHATASE 70 U/L (38-126); ALT/SGPT 28 U/L (7-56); AST/SGOT 14 U/L (14-36); BILIRUBIN,TOTAL 0.5 mg/dL (0.2-1.3); BLOOD UREA NITROGEN 11 mg/dL (7-21); CALCIUM 8.7 mg/dL (8.4-10.5); CARBON DIOXIDE 26 mmol/L (21-33); CHLORIDE 105 mmol/L (98-107); GFR AFRICAN-AMERICAN > 60; GLUCOSE,RANDOM 151 mg/dL (70-110); MAGNESIUM 1.6 mg/dL (1.7-2.2); PHOSPHOROUS 3.7 mg/dL (2.5-4.5); POTASSIUM 3.9 mmol/L (3.6-5.0); SODIUM 138 mmol/L (132-148); TOTAL PROTEIN 5.3 g/dL (5.8-8.3)
[2017-09-08] MEDS: Insulin Lispro (humaLOG) MEDIUM Coverage SC SCH ×3 (08:11→17:00)
--- NOTE | 2017-09-08 08:47 | CP.PCM.PN ---
Subjective - Date & Time of Evaluation Date of Evaluation: 09/08/17 Time of Evaluation: 08:44 - Subjective Subjective: Surgery Progress note. Dr. Anderson Pt seen and examined at bedside. No acute events overnight. Patient's pain is well tolerated. No F/C. No N/V/D. No new complaints. UOP 360/12hrs (~30cc/hr). Vicente drain 85cc/12hrs. Objective - Vital Signs/Intake and Output Vital Signs (last 24 hours): Temp Pulse Resp BP Pulse Ox 99.5 F 87 18 125/55 L 96 09/08/17 07:30 09/08/17 07:30 09/08/17 07:30 09/08/17 07:30 09/08/17 07:30 Intake and Output: 09/08/17 09/08/17 06:59 18:59 Intake Total 1800 Output Total 385 Balance 1415 - Medications Medications: Current Medications Albuterol/Ipratropium (Duoneb 3 Mg/0.5 Mg (3 Ml) Ud) 3 ml IH Q4H PRN PRN Reason: Shortness of Breath Alprazolam (Xanax) 1 mg PO TID PRN; Protocol PRN Reason: Anxiety Amlodipine Besylate (Norvasc) 5 mg PO QAM RAYMUNDO Enoxaparin Sodium (Lovenox) 40 mg SC DAILY RAYMUNDO PRN Reason: Protocol Metronidazole (Flagyl) 500 mg in 100 mls @ 100 mls/hr IVPB Q8 RAYMUNDO PRN Reason: Protocol Last Admin: 09/08/17 06:20 Dose: 100 mls/hr Ceftriaxone Sodium (Rocephin 1 Gram Ivpb) 1 gm in 100 mls @ 100 mls/hr IVPB DAILY RAYMUNDO PRN Reason: Protocol Last Admin: 09/07/17 09:53 Dose: 100 mls/hr Lactated Ringer's (Lactated Ringer's) 1,000 mls @ 130 mls/hr IV .Q7H42M [facility] Insulin Human Lispro (Humalog Med) 0 units SC ACHS RAYMUNDO PRN Reason: Protocol Last Admin: 09/08/17 08:11 Dose: 1 units Morphine Sulfate (Morphine) 4 mg IVP Q4H PRN PRN Reason: Pain, severe (8-10) Last Admin: 09/08/17 04:48 Dose: 4 mg Multivitamins (Thera Tab) 1 tab PO DAILY [facility] Non-Formulary Medication (Budesonide/Formoterol Fumarate [Symbicort 160-4.5 Mcg Inhaler]) 2 puff IH BID [facility] Last Admin: 09/07/17 19:26 Dose: Not Given Ondansetron HCl (Zofran Inj) 4 mg IVP Q4H PRN PRN Reason: Nausea/Vomiting Pantoprazole Sodium (Protonix Inj) 40 mg IVP DAILY [facility] Last Admin: 09/07/17 09:54 Dose: 40 mg Quetiapine Fumarate (Seroquel) 100 mg PO BID [facility] PRN Reason: Protocol Last Admin: 09/07/17 19:26 Dose: 100 mg Tiotropium [place] (Spiriva) 18 mcg IH DAILY [facility] Valsartan (Diovan) 320 mg PO QAM [facility] - Labs Labs: 09/08/17 07:00 09/08/17 07:00 PT 15.8 SECONDS (9.4-12.5) H 09/07/17 06:00 INR 1.43 (0.93-1.08) H 09/07/17 06:00 APTT 50.5 Seconds (25.1-36.5) H 09/07/17 06:00 - Constitutional Appears: Well, Non-toxic, No Acute Distress - Head Exam Head Exam: ATRAUMATIC, NORMAL INSPECTION, NORMOCEPHALIC - Eye Exam Eye Exam: EOMI - ENT Exam ENT Exam: Mucous Membranes Moist - Neck Exam Neck Exam: Full ROM - Respiratory Exam Respiratory Exam: Clear to Ausculation Bilateral, NORMAL BREATHING PATTERN. absent: Wheezes, Respiratory Distress - GI/Abdominal Exam GI & Abdominal Exam: Soft. absent: Distended, Guarding, Rigid, Rebound Additional comments: midline incision bandage clean, dry and intact. Vicente drain in place right lower abdomen. Vicente output 85cc/12hrs of serosang fluid. - Extremities Exam Extremities Exam: absent: Calf Tenderness - Neurological Exam Neurological Exam: Alert, Awake, Oriented x3 - Psychiatric Exam Psychiatric exam: Normal Affect, Normal Mood - Skin Skin Exam: Dry, Intact, Normal Color, Warm Assessment and Plan - Assessment and Plan (Free Text) Assessment: 72yo F with acute appy and cecal mass s/p R hemicolectomy on 09/07, POD#1. - CLD in the AM - OOB to chair - Consider d/c justina at noon - Continue IVF - Continue ABX - Strict I&Os. Monitor drain outputs Further recs as per Dr. Justin Del Rio PGY1 surgery pager: [phone]
[2017-09-08] MEDS: cefTRIAXone 1 gm 1 GM/100 ML BAG IVPB SCH (09:44)
[2017-09-08] MEDS: Enoxaparin 40 mg Syringe SC SCH (09:46)
[2017-09-08] MEDS: Multivitamin Therapeutic Tab PO SCH (09:47)
[2017-09-08] MEDS: Non Formulary Medication (Budesonide/Formoterol Fumarate [Symbicort 160-4.5 Mcg Inhaler] 2 IH SCH (10:00)
[2017-09-08] MEDS ORDERED: Enoxaparin 30 mg Syringe SC SCH (10:00)
--- NOTE | 2017-09-08 12:53 | CP.PCM.PN ---
<Sesar Purcell - Last Filed: 09/08/17 12:50> Subjective - Date & Time of Evaluation Date of Evaluation: 09/08/17 Time of Evaluation: 12:51 - Subjective Subjective: Medicine Progress Note: Pt seen and examined at bedside. Pt denied any acute overnight events. Pt is POD #1 for right hemicolectomy. Pt states that she tolerated procedure well. Post op pain is currently controlled. Pt denied BM or flatus. Pt denied CP, SOB , nausea, vomiting, diarrhea, YUN, dizziness, or dysuria. Objective - Vital Signs/Intake and Output Vital Signs (last 24 hours): Temp Pulse Resp BP Pulse Ox 99.5 F 87 18 125/55 L 96 09/08/17 07:30 09/08/17 09:47 09/08/17 07:30 09/08/17 09:47 09/08/17 07:30 Intake and Output: 09/08/17 09/08/17 06:59 18:59 Intake Total 1800 Output Total 385 Balance 1415 - Medications Medications: Current Medications Albuterol/Ipratropium (Duoneb 3 Mg/0.5 Mg (3 Ml) Ud) 3 ml IH Q4H PRN PRN Reason: Shortness of Breath Alprazolam (Xanax) 1 mg PO TID PRN; Protocol PRN Reason: Anxiety Amlodipine Besylate (Norvasc) 5 mg PO QAM [facility] Last Admin: 09/08/17 09:47 Dose: 5 mg Enoxaparin Sodium (Lovenox) 40 mg SC DAILY [facility] PRN Reason: Protocol Last Admin: 09/08/17 09:46 Dose: 40 mg Metronidazole (Flagyl) 500 mg in 100 mls @ 100 mls/hr IVPB Q8 [facility] PRN Reason: Protocol Last Admin: 09/08/17 06:20 Dose: 100 mls/hr Ceftriaxone Sodium (Rocephin 1 Gram Ivpb) 1 gm in 100 mls @ 100 mls/hr IVPB DAILY [facility] PRN Reason: Protocol Last Admin: 09/08/17 09:44 Dose: 100 mls/hr Lactated Ringer's (Lactated Ringer's) 1,000 mls @ 130 mls/hr IV .Q7H42M [facility] Insulin Human Lispro (Humalog Med) 0 units SC ACHS [facility] PRN Reason: Protocol Last Admin: 09/08/17 08:11 Dose: 1 units Morphine Sulfate (Morphine) 4 mg IVP Q4H PRN PRN Reason: Pain, severe (8-10) Last Admin: 09/08/17 09:46 Dose: 4 mg Multivitamins (Thera Tab) 1 tab PO DAILY [facility] Last Admin: 09/08/17 09:47 Dose: 1 tab Non-Formulary Medication (Budesonide/Formoterol Fumarate [Symbicort 160-4.5 Mcg Inhaler]) 2 puff IH BID [facility] Last Admin: 09/07/17 19:26 Dose: Not Given Ondansetron HCl (Zofran Inj) 4 mg IVP Q4H PRN PRN Reason: Nausea/Vomiting Pantoprazole Sodium (Protonix Inj) 40 mg IVP DAILY [facility] Last Admin: 09/08/17 09:45 Dose: 40 mg Quetiapine Fumarate (Seroquel) 100 mg PO BID [facility] PRN Reason: Protocol Last Admin: 09/08/17 09:47 Dose: 100 mg Tiotropium [place] (Spiriva) 18 mcg IH DAILY [facility] Valsartan (Diovan) 320 mg PO QAM [facility] Last Admin: 09/08/17 09:47 Dose: 320 mg - Labs Labs: 09/08/17 07:00 09/08/17 07:00 PT 15.8 SECONDS (9.4-12.5) H 09/07/17 06:00 INR 1.43 (0.93-1.08) H 09/07/17 06:00 APTT 50.5 Seconds (25.1-36.5) H 09/07/17 06:00 - Constitutional Appears: No Acute Distress - Head Exam Head Exam: ATRAUMATIC, NORMAL INSPECTION, NORMOCEPHALIC - Eye Exam Eye Exam: EOMI, PERRL - ENT Exam ENT Exam: Mucous Membranes Moist - Neck Exam Neck Exam: Full ROM. absent: Lymphadenopathy, Tenderness, Thyromegaly - Respiratory Exam Respiratory Exam: Clear to Ausculation Bilateral. absent: Accessory Muscle Use , Rales, Rhonchi, Wheezes, Respiratory Distress - Cardiovascular Exam Cardiovascular Exam: RRR, +S1, +S2. absent: Diastolic murmur, Gallop, Rubs, Murmur - GI/Abdominal Exam GI & Abdominal Exam: Soft. absent: Distended, Guarding, Rigid, Tenderness, Mass , Rebound Additional comments: EWA in RLQ with SS output - Rectal Exam Rectal Exam: NORMAL INSPECTION - Extremities Exam Extremities Exam: Normal Inspection - Back Exam Back Exam: NORMAL INSPECTION - Neurological Exam Neurological Exam: Alert, Awake, Oriented x3 - Psychiatric Exam Psychiatric exam: Normal Affect, Normal Mood - Skin Skin Exam: Dry, Intact, Normal Color, Warm Assessment and Plan - Assessment and Plan (Free Text) Assessment: 72 year old female with past medical history that includes COPD, HTN, DM2, GERD , and anemia presented to [facility] ED complaining of abdominal pain, found to have acute appendicitis and mass of cecum measuring 4x5 cm. Patient has been evaluated by General Surgery team and is awaiting potential surgical intervention. Plan: 1. Acute appendicitis - POD#1 right hemicolectomy - Diet advanced to CLD - Promote OOB to chair, incentive spirometry - CT abdomen PO and IV: Evidence of appendicitis with dilatation to 13 mm with appendiceal wall thickening and surrounding inflammation without abscess - Flagyl and Rocephin - Zofran and morphine prn 2. Cecal mass - POD #1 right hemicolectomy - CT abd/pelvis showed acute appendicitis and large cecum mass 4x5 cm - General surgery consulted - GI consulted, appreciate recs - Patient with history of colonoscopy demonstrating sigmoid and rectum polyps, biopsy done showing tubular adenoma - Flagyl and Roceph - CEA level elevated, consider Heme/onc consult - GI following, appreciate recs 3. Leukocytosis, resovled - Afebrile - Cultures negative 4. DM2 - ISS - Accuchecks 5. HTN - BP stable at this time - Continue to monitor 6. COPD - Duonebs prn GI ppx: Protonix DVT ppx: SCD Case and plan discussed with attending <Kailash Carson - Last Filed: 09/08/17 13:41> Objective - Vital Signs/Intake and Output Vital Signs (last 24 hours): Temp Pulse Resp BP Pulse Ox 99.5 F 87 18 125/55 L 96 09/08/17 07:30 09/08/17 09:47 09/08/17 07:30 09/08/17 09:47 09/08/17 07:30 Intake and Output: 09/08/17 09/08/17 06:59 18:59 Intake Total 1800 Output Total 385 Balance 1415 - Medications Medications: Current Medications Albuterol/Ipratropium (Duoneb 3 Mg/0.5 Mg (3 Ml) Ud) 3 ml IH Q4H PRN PRN Reason: Shortness of Breath Alprazolam (Xanax) 1 mg PO TID PRN; Protocol PRN Reason: Anxiety Amlodipine Besylate (Norvasc) 5 mg PO QAM [facility] Last Admin: 09/08/17 09:47 Dose: 5 mg Enoxaparin Sodium (Lovenox) 40 mg SC DAILY [facility] PRN Reason: Protocol Last Admin: 09/08/17 09:46 Dose: 40 mg Metronidazole (Flagyl) 500 mg in 100 mls @ 100 mls/hr IVPB Q8 [facility] PRN Reason: Protocol Last Admin: 09/08/17 06:20 Dose: 100 mls/hr Ceftriaxone Sodium (Rocephin 1 Gram Ivpb) 1 gm in 100 mls @ 100 mls/hr IVPB DAILY [facility] PRN Reason: Protocol Last Admin: 09/08/17 09:44 Dose: 100 mls/hr Lactated Ringer's (Lactated Ringer's) 1,000 mls @ 130 mls/hr IV .Q7H42M [facility] Insulin Human Lispro (Humalog Med) 0 units SC ACHS [facility] PRN Reason: Protocol Last Admin: 09/08/17 12:27 Dose: 3 units Magnesium Oxide (Mag-Ox) 400 mg PO DAILY [facility] Multivitamins (Thera Tab) 1 tab PO DAILY [facility] Last Admin: 09/08/17 09:47 Dose: 1 tab Non-Formulary Medication (Budesonide/Formoterol Fumarate [Symbicort 160-4.5 Mcg Inhaler]) 2 puff IH BID [facility] Last Admin: 09/07/17 19:26 Dose: Not Given Ondansetron HCl (Zofran Inj) 4 mg IVP Q4H PRN PRN Reason: Nausea/Vomiting Pantoprazole Sodium (Protonix Inj) 40 mg IVP DAILY [facility] Last Admin: 09/08/17 09:45 Dose: 40 mg Quetiapine Fumarate (Seroquel) 100 mg PO BID [facility] PRN Reason: Protocol Last Admin: 09/08/17 09:47 Dose: 100 mg Tiotropium [place] (Spiriva) 18 mcg IH DAILY [facility] Tramadol HCl (Ultram) 50 mg PO TID PRN PRN Reason: Pain, severe (8-10) Valsartan (Diovan) 320 mg PO QAM [facility] Last Admin: 09/08/17 09:47 Dose: 320 mg - Labs Labs: 09/08/17 07:00 09/08/17 07:00 PT 15.8 SECONDS (9.4-12.5) H 09/07/17 06:00 INR 1.43 (0.93-1.08) H 09/07/17 06:00 APTT 50.5 Seconds (25.1-36.5) H 09/07/17 06:00 Attending/Attestation - Attestation I have personally seen and examined this patient.: Yes I have fully participated in the care of the patient.: Yes I have reviewed all pertinent clinical information, including history, physical exam and plan: Yes Notes (Text): 09/08/17 13:39 72 year old female with past medical history of COPD, hypertension, diabetes and anemia who presented with complaint of RLQ pain. CT abd/pelvis showed acute appendicitis and large cecum mass 4x5 cm. She was seen by GI and surgery and is s/p right hemicolectomy POD #1. Continue with analgesics as needed and iv antibiotics. Advance diet as tolerated as per surgery. Pathology report is pending; will likely need oncology evaluation. Continue with insulin ss for diabetes and duonebs for history of COPD. Kailash Carson MD Hospitalist.
[2017-09-08] MEDS: Tiotropium 18 mcg Cap For Inhalation IH SCH (14:11)
[2017-09-08] MEDS: Magnesium Oxide 400 mg Tab UD PO SCH (15:20)
--- NOTE | 2017-09-08 19:37 | PN ---
DATE: 09/08/2017 SUBJECTIVE: This patient was seen and evaluated earlier today. The patient is comfortable, status post right hemicolectomy yesterday on clear liquids. PHYSICAL EXAMINATION: VITAL SIGNS: Temperature 99.5, pulse 87, and blood pressure 125/55. HEENT: Atraumatic, anicteric. NECK: Supple. HEART: S1 and S2 heard. LUNGS: Bilateral air entry present. ABDOMEN: Surgical scar present with a drain. EXTREMITIES: No cyanosis, no clubbing. LABORATORY DATA: Hemoglobin is 9.2, hematocrit 29.5, WBC 7.5, and platelets 262. BUN 11, creatinine 0.7. IMPRESSION: This is a 72-year-old patient admitted with right lower quadrant abdominal pain, found to have a cecal mass with a distended appendix, status post right hemicolectomy. Continue the postop surgery and follow up the pathology. I did discussion with the patient's family yesterday. Thank you very much for allowing us to participate in the care of the patient. Александр Azar MD
[2017-09-09] MEDS: metroNIDAZOLE IV 500 mg/100 ml 500 MG/100 ML BAG IVPB SCH (05:56)
[2017-09-09] MEDS: Insulin Lispro (humaLOG) MEDIUM Coverage SC SCH ×5 (06:30→22:35)
[2017-09-09] MEDS: Lactated Ringer's 1,000 ML IV SCH ×3 (06:30→12:43)
[2017-09-09 07:43] LABS: BASO # 0.02 K/mm3 (0.0-2.0); BASO % 0.3 % (0.0-3.0); EOS # 0.1 (0.0-0.7); EOS % 1.7 % (1.5-5.0); GRAN # 5.48 (1.4-6.5); GRAN % 77.4 % (50.0-68.0); HEMATOCRIT 28.1 % (36.0-48.0); LYMPH # 0.9 (1.2-3.4); LYMPH % 13.1 % (22.0-35.0); MEAN CELL VOLUME 84.4 fl (80.0-105.0); MEAN CORPUSCULAR HEMOGLOBIN 26.4 pg (25.0-35.0); MEAN CORPUSCULAR HGB CONC 31.3 g/dl (31.0-37.0); MEAN PLATELET VOLUME 8.3 fl (7.0-11.0); MONO # 0.5 (0.1-0.6); MONO % 7.5 % (1.0-6.0); RED CELL DISTRIBUTION WIDTH 15.2 % (11.5-14.5); WHITE BLOOD COUNT 7.1 10^3/ul (4.5-11.0)
[2017-09-09 07:59] LABS: ALB/GLOB RATIO 1.1 (1.1-1.8); ALKALINE PHOSPHATASE 66 U/L (38-126); ALT/SGPT 25 U/L (7-56); AST/SGOT 15 U/L (14-36); BILIRUBIN,TOTAL 0.6 mg/dL (0.2-1.3); BLOOD UREA NITROGEN 5 mg/dL (7-21); CARBON DIOXIDE 28 mmol/L (21-33); CHLORIDE 105 mmol/L (98-107); GFR AFRICAN-AMERICAN > 60; GLUCOSE,RANDOM 141 mg/dL (70-110); MAGNESIUM 1.7 mg/dL (1.7-2.2); PHOSPHOROUS 2.1 mg/dL (2.5-4.5); POTASSIUM 3.5 mmol/L (3.6-5.0); SODIUM 140 mmol/L (132-148); TOTAL PROTEIN 5.2 g/dL (5.8-8.3)
[2017-09-09] MEDS: Non Formulary Medication (Budesonide/Formoterol Fumarate [Symbicort 160-4.5 Mcg Inhaler] 2 IH SCH ×2 (09:31→18:20)
[2017-09-09] MEDS: Magnesium Oxide 400 mg Tab UD PO SCH (09:31)
[2017-09-09] MEDS: Tiotropium 18 mcg Cap For Inhalation IH SCH (09:31)
[2017-09-09] MEDS: Enoxaparin 40 mg Syringe SC SCH (09:32)
--- NOTE | 2017-09-09 09:54 | CP.PCM.PN ---
Subjective - Date & Time of Evaluation Date of Evaluation: 09/09/17 Time of Evaluation: 07:00 - Subjective Subjective: Surgery: Dr. Anderson Pt seen and examined. No acute overnight events. States she's feeling well this morning and pain is well controlled. Pt admits to tolerating her CLD w/o N/ V.Has not been out of bed since surgery. Denies F/C. Objective - Vital Signs/Intake and Output Vital Signs (last 24 hours): Temp Pulse Resp BP Pulse Ox 98.8 F 100 H 19 146/67 95 09/09/17 07:25 09/09/17 07:25 09/09/17 07:25 09/09/17 07:25 09/09/17 07:25 Intake and Output: 09/09/17 09/09/17 06:59 18:59 Intake Total 2160 Output Total 1210 Balance 950 - Medications Medications: Current Medications Albuterol/Ipratropium (Duoneb 3 Mg/0.5 Mg (3 Ml) Ud) 3 ml IH Q4H PRN PRN Reason: Shortness of Breath Alprazolam (Xanax) 1 mg PO TID PRN; Protocol PRN Reason: Anxiety Last Admin: 09/09/17 00:45 Dose: 1 mg Amlodipine Besylate (Norvasc) 5 mg PO QAM [facility] Last Admin: 09/09/17 09:31 Dose: 5 mg Enoxaparin Sodium (Lovenox) 40 mg SC DAILY [facility] PRN Reason: Protocol Last Admin: 09/09/17 09:32 Dose: 40 mg Lactated Ringer's (Lactated Ringer's) 1,000 mls @ 50 mls/hr IV .Q20H [facility] Insulin Human Lispro (Humalog Med) 0 units SC ACHS [facility] PRN Reason: Protocol Last Admin: 09/09/17 08:27 Dose: Not Given Magnesium Oxide (Mag-Ox) 400 mg PO DAILY [facility] Last Admin: 09/09/17 09:31 Dose: 400 mg Multivitamins (Thera Tab) 1 tab PO DAILY [facility] Last Admin: 09/08/17 09:47 Dose: 1 tab Non-Formulary Medication (Budesonide/Formoterol Fumarate [Symbicort 160-4.5 Mcg Inhaler]) 2 puff IH BID [facility] Last Admin: 11/12/17 09:31 Dose: 2 puff Ondansetron HCl (Zofran Inj) 4 mg IVP Q4H PRN PRN Reason: Nausea/Vomiting Pantoprazole Sodium (Protonix Inj) 40 mg IVP DAILY [facility] Last Admin: 09/09/17 09:32 Dose: 40 mg Quetiapine Fumarate (Seroquel) 200 mg PO HS [facility] PRN Reason: Protocol Tiotropium [place] (Spiriva) 18 mcg IH DAILY [facility] Last Admin: 09/09/17 09:31 Dose: 18 mcg Tramadol HCl (Ultram) 50 mg PO TID PRN PRN Reason: Pain, severe (8-10) Last Admin: 09/09/17 06:13 Dose: 50 mg Valsartan (Diovan) 320 mg PO QAM [facility] Last Admin: 09/09/17 09:31 Dose: 320 mg - Labs Labs: 09/09/17 07:20 09/09/17 07:20 PT 15.8 SECONDS (9.4-12.5) H 09/07/17 06:00 INR 1.43 (0.93-1.08) H 09/07/17 06:00 APTT 50.5 Seconds (25.1-36.5) H 09/07/17 06:00 - Constitutional Appears: Well, No Acute Distress - Head Exam Head Exam: ATRAUMATIC, NORMOCEPHALIC - ENT Exam ENT Exam: Mucous Membranes Moist - Respiratory Exam Respiratory Exam: NORMAL BREATHING PATTERN - Cardiovascular Exam Cardiovascular Exam: RRR - GI/Abdominal Exam GI & Abdominal Exam: Distended, Soft. absent: Guarding, Tenderness, Rebound Additional comments: midline incision with dressing, C/D/I. Pierre in place RLQ with serosang output 60cc/12hrs. - Neurological Exam Neurological Exam: Alert, Awake - Skin Skin Exam: Dry, Warm Assessment and Plan - Assessment and Plan (Free Text) Assessment: 72F s/p R hemicolectomy for appendicitis & cecal mass: POD#2 Plan: - continue liquid diet, will advance slowly - monitor pierre output - DC ABX, no indication for continued ABX at this time - Encourage out of bed to chair and ambulation - IS use - d/w Dr. Justin Neri, PGY-3 Surgery
[2017-09-09] MEDS: Multivitamin Therapeutic Tab PO SCH (09:57)
[2017-09-09] MEDS: Albuterol-Ipratrop 3 mg / 0.5 (3 ml) UD IH PRN (11:05)
--- NOTE | 2017-09-09 12:14 | CP.PCM.PN ---
<Sesar Purcell - Last Filed: 09/09/17 12:10> Subjective - Date & Time of Evaluation Date of Evaluation: 09/09/17 Time of Evaluation: 12:10 - Subjective Subjective: Medicine Progress Note: Pt seen and examined at bedside. Pt denied any acute overnight events. Pt is POD #2 s/o right hemicolectomy. Pt c/o of some SOB. Pt tolerating diet. Pt denies having BM, but admits to flatus. Pt denied CP, nausea, vomiting, fever, chills, YUN, dizziness, or dysuria. Objective - Vital Signs/Intake and Output Vital Signs (last 24 hours): Temp Pulse Resp BP Pulse Ox 98.8 F 100 H 19 146/67 95 09/09/17 07:25 09/09/17 07:25 09/09/17 07:25 09/09/17 07:25 09/09/17 07:25 Intake and Output: 09/09/17 09/09/17 06:59 18:59 Intake Total 2160 Output Total 1210 Balance 950 - Medications Medications: Current Medications Albuterol/Ipratropium (Duoneb 3 Mg/0.5 Mg (3 Ml) Ud) 3 ml IH Q4H PRN PRN Reason: Shortness of Breath Last Admin: 09/09/17 11:05 Dose: 3 ml Alprazolam (Xanax) 1 mg PO TID PRN; Protocol PRN Reason: Anxiety Last Admin: 09/09/17 09:57 Dose: 1 mg Amlodipine Besylate (Norvasc) 5 mg PO QAM [facility] Last Admin: 09/09/17 09:31 Dose: 5 mg Enoxaparin Sodium (Lovenox) 40 mg SC DAILY [facility] PRN Reason: Protocol Last Admin: 09/09/17 09:32 Dose: 40 mg Lactated Ringer's (Lactated Ringer's) 1,000 mls @ 50 mls/hr IV .Q20H [facility] Insulin Human Lispro (Humalog Med) 0 units SC ACHS [facility] PRN Reason: Protocol Last Admin: 09/09/17 08:27 Dose: Not Given Magnesium Oxide (Mag-Ox) 400 mg PO DAILY [facility] Last Admin: 09/09/17 09:31 Dose: 400 mg Multivitamins (Thera Tab) 1 tab PO DAILY [facility] Last Admin: 09/09/17 09:57 Dose: 1 tab Non-Formulary Medication (Budesonide/Formoterol Fumarate [Symbicort 160-4.5 Mcg Inhaler]) 2 puff IH BID [facility] Last Admin: 09/09/17 09:31 Dose: 2 puff Ondansetron HCl (Zofran Inj) 4 mg IVP Q4H PRN PRN Reason: Nausea/Vomiting Pantoprazole Sodium (Protonix Inj) 40 mg IVP DAILY [facility] Last Admin: 09/09/17 09:32 Dose: 40 mg Quetiapine Fumarate (Seroquel) 200 mg PO HS [facility] PRN Reason: Protocol Tiotropium [place] (Spiriva) 18 mcg IH DAILY [facility] Last Admin: 09/09/17 09:31 Dose: 18 mcg Tramadol HCl (Ultram) 50 mg PO TID PRN PRN Reason: Pain, severe (8-10) Last Admin: 09/09/17 06:13 Dose: 50 mg Valsartan (Diovan) 320 mg PO QAM [facility] Last Admin: 09/09/17 09:31 Dose: 320 mg - Labs Labs: 09/09/17 07:20 09/09/17 07:20 PT 15.8 SECONDS (9.4-12.5) H 09/07/17 06:00 INR 1.43 (0.93-1.08) H 09/07/17 06:00 APTT 50.5 Seconds (25.1-36.5) H 09/07/17 06:00 - Constitutional Appears: No Acute Distress - Head Exam Head Exam: ATRAUMATIC, NORMOCEPHALIC - Eye Exam Eye Exam: EOMI, PERRL - ENT Exam ENT Exam: Mucous Membranes Moist, Normal Exam - Neck Exam Neck Exam: Full ROM, Normal Inspection. absent: Lymphadenopathy, Tenderness, Thyromegaly - Respiratory Exam Respiratory Exam: Rales (b/l bases). absent: Accessory Muscle Use, Chest Wall Tenderness, Decreased Breath Sounds, Rhonchi, Wheezes, Respiratory Distress - Cardiovascular Exam Cardiovascular Exam: RRR, +S1, +S2. absent: Diastolic murmur, Gallop, Rubs, Murmur - GI/Abdominal Exam GI & Abdominal Exam: Soft. absent: Distended, Guarding, Tenderness, Mass, Organomegaly, Rebound Additional comments: Vicente drain in RLQ with SS drainage - Extremities Exam Extremities Exam: Normal Inspection - Back Exam Back Exam: NORMAL INSPECTION - Neurological Exam Neurological Exam: Alert, Awake, Oriented x3 - Psychiatric Exam Psychiatric exam: Normal Affect, Normal Mood - Skin Skin Exam: Dry, Intact, Normal Color, Warm Assessment and Plan - Assessment and Plan (Free Text) Assessment: 72 year old female with past medical history that includes COPD, HTN, DM2, GERD , and anemia presented to [facility] complaining of abdominal pain, found to have acute appendicitis and mass of cecum measuring 4x5 cm. Pt is POD #2 right hemicolectomy. Plan: 1. Acute appendicitis - POD#2 right hemicolectomy - Diet advanced to CLD - Promote OOB to chair, incentive spirometry - CT abdomen PO and IV: Evidence of appendicitis with dilatation to 13 mm with appendiceal wall thickening and surrounding inflammation without abscess - Abx d/c per surgery - Zofran and morphine prn - Tramadol for pain 2. Cecal mass - POD #2 right hemicolectomy, f/u pathology - CT abd/pelvis showed acute appendicitis and large cecum mass 4x5 cm - General surgery consulted - GI consulted, appreciate recs - Patient with history of colonoscopy demonstrating sigmoid and rectum polyps, biopsy done showing tubular adenoma - CEA level elevated, consider Heme/onc consult - GI following, appreciate recs 3. Hypokalemia - K 3.5 - KCl PO 40 meq given - Cont to monitor, replete as needed 4. Hypophosphatemia - Phos 2.1 - Neutraphos x2 given - Cont to monitor, replete as needed 5. Leukocytosis, resovled - Afebrile - Cultures negative 6. DM2 - ISS - Accuchecks 7. HTN - Cont home medications - Continue to monitor 8. COPD - Duonebs prn GI ppx: Protonix DVT ppx: SCD, Lovenox Case and plan discussed with attending <Kailash Carson - Last Filed: 09/09/17 12:50> Objective - Vital Signs/Intake and Output Vital Signs (last 24 hours): Temp Pulse Resp BP Pulse Ox 98.8 F 100 H 19 146/67 95 09/09/17 07:25 09/09/17 07:25 09/09/17 07:25 09/09/17 07:25 09/09/17 07:25 Intake and Output: 09/09/17 09/09/17 06:59 18:59 Intake Total 2160 Output Total 1210 Balance 950 - Medications Medications: Current Medications Albuterol/Ipratropium (Duoneb 3 Mg/0.5 Mg (3 Ml) Ud) 3 ml IH Q4H PRN PRN Reason: Shortness of Breath Last Admin: 09/09/17 11:05 Dose: 3 ml Alprazolam (Xanax) 1 mg PO TID PRN; Protocol PRN Reason: Anxiety Last Admin: 09/09/17 09:57 Dose: 1 mg Amlodipine Besylate (Norvasc) 5 mg PO QAM [facility] Last Admin: 09/09/17 09:31 Dose: 5 mg Enoxaparin Sodium (Lovenox) 40 mg SC DAILY [facility] PRN Reason: Protocol Last Admin: 09/09/17 09:32 Dose: 40 mg Lactated Ringer's (Lactated Ringer's) 1,000 mls @ 50 mls/hr IV .Q20H [facility] Last Admin: 09/09/17 12:43 Dose: 50 mls/hr Insulin Human Lispro (Humalog Med) 0 units SC ACHS [facility] PRN Reason: Protocol Last Admin: 09/09/17 08:27 Dose: Not Given Magnesium Oxide (Mag-Ox) 400 mg PO DAILY [facility] Last Admin: 09/09/17 09:31 Dose: 400 mg Multivitamins (Thera Tab) 1 tab PO DAILY [facility] Last Admin: 09/09/17 09:57 Dose: 1 tab Non-Formulary Medication (Budesonide/Formoterol Fumarate [Symbicort 160-4.5 Mcg Inhaler]) 2 puff IH BID [facility] Last Admin: 09/09/17 09:31 Dose: 2 puff Ondansetron HCl (Zofran Inj) 4 mg IVP Q4H PRN PRN Reason: Nausea/Vomiting Pantoprazole Sodium (Protonix Inj) 40 mg IVP DAILY [facility] Last Admin: 09/09/17 09:32 Dose: 40 mg Potassium Phos/Sodium Phos (Neutra-Phos) 1 pkt PO Q8H [facility] Stop: 09/10/17 00:01 Quetiapine Fumarate (Seroquel) 200 mg PO HS [facility] PRN Reason: Protocol Tiotropium [place] (Spiriva) 18 mcg IH DAILY [facility] Last Admin: 09/09/17 09:31 Dose: 18 mcg Tramadol HCl (Ultram) 50 mg PO TID PRN PRN Reason: Pain, severe (8-10) Last Admin: 09/09/17 06:13 Dose: 50 mg Valsartan (Diovan) 320 mg PO QAM [facility] Last Admin: 09/09/17 09:31 Dose: 320 mg - Labs Labs: 09/09/17 07:20 09/09/17 07:20 PT 15.8 SECONDS (9.4-12.5) H 09/07/17 06:00 INR 1.43 (0.93-1.08) H 09/07/17 06:00 APTT 50.5 Seconds (25.1-36.5) H 09/07/17 06:00 Attending/Attestation - Attestation I have personally seen and examined this patient.: Yes I have fully participated in the care of the patient.: Yes I have reviewed all pertinent clinical information, including history, physical exam and plan: Yes Notes (Text): 09/09/17 12:47 72 year old female with past medical history of COPD, hypertension, diabetes and anemia who presented with complaint of RLQ pain. CT abd/pelvis showed acute appendicitis and large cecum mass 4x5 cm. She was seen by GI and surgery and is s/p right hemicolectomy POD #2. She is tolerating liquid diet. Advance diet as tolerated as per surgery. CEA was elevated. Likely will need oncology evaluation pending pathology report. Continue with insulin ss for diabetes and duonebs for history of COPD. Will replete and repeat lytes. Kailash Carson MD Hospitalist.
[2017-09-09] MEDS ORDERED: Potassium Chloride 20 mEq ER Tab PO STA (12:21)
[2017-09-09] MEDS: Potassium & Sodium Phosphate PO SCH ×2 (13:39→20:31)
--- NOTE | 2017-09-09 18:35 | PN ---
DATE: 09/09/2017 SUBJECTIVE: This patient was seen and evaluated earlier today. The patient is on clear liquid diet, tolerating. PHYSICAL EXAMINATION: VITAL SIGNS: Temperature 99.1, pulse 72, and blood pressure 138/72. HEENT: Atraumatic, anicteric. NECK: Supple. HEART: S1 and S2 heard. LUNGS: Bilateral air entry present. ABDOMEN: Soft,surgical incision noticed and drain noticed. EXTREMITIES: No cyanosis, no clubbing. LABORATORY DATA: Hemoglobin is 8.8, hematocrit 28.1, WBC 7.1, and platelets 272. BUN 7, creatinine 0.6. IMPRESSION: Status post right hemicolectomy for cecal mass and enlarged appendix. Postop as per surgery. We will continue to closely followup her care and suggest further management based on the clinical course. We will follow up with the Pathology. Александр Azar MD
[2017-09-10 00:48] VITALS: RESP 18
[2017-09-10] MEDS: Lactated Ringer's 1,000 ML IV SCH (02:35)
[2017-09-10 06:51] LABS: BASO # 0.03 K/mm3 (0.0-2.0); BASO % 0.4 % (0.0-3.0); EOS # 0.2 (0.0-0.7); EOS % 2.7 % (1.5-5.0); GRAN # 5.71 (1.4-6.5); GRAN % 74.1 % (50.0-68.0); HEMATOCRIT 29.7 % (36.0-48.0); LYMPH # 1.2 (1.2-3.4); MEAN CELL VOLUME 84.4 fl (80.0-105.0); MEAN CORPUSCULAR HEMOGLOBIN 26.4 pg (25.0-35.0); MEAN CORPUSCULAR HGB CONC 31.3 g/dl (31.0-37.0); MEAN PLATELET VOLUME 8.2 fl (7.0-11.0); MONO # 0.6 (0.1-0.6); MONO % 7.8 % (1.0-6.0); WHITE BLOOD COUNT 7.7 10^3/ul (4.5-11.0)
[2017-09-10 07:20] LABS: ALB/GLOB RATIO 1.1 (1.1-1.8); ALKALINE PHOSPHATASE 65 U/L (38-126); ALT/SGPT 24 U/L (7-56); AST/SGOT 15 U/L (14-36); BILIRUBIN,TOTAL 0.5 mg/dL (0.2-1.3); BLOOD UREA NITROGEN 5 mg/dL (7-21); CALCIUM 9.3 mg/dL (8.4-10.5); CARBON DIOXIDE 30 mmol/L (21-33); CHLORIDE 104 mmol/L (98-107); GFR AFRICAN-AMERICAN > 60; GLUCOSE,RANDOM 168 mg/dL (70-110); MAGNESIUM 1.8 mg/dL (1.7-2.2); PHOSPHOROUS 2.7 mg/dL (2.5-4.5); SODIUM 139 mmol/L (132-148); TOTAL PROTEIN 5.2 g/dL (5.8-8.3)
[2017-09-10 08:13] VITALS: BP 146/80; TEMP 98.5; O2SAT 95
--- NOTE | 2017-09-10 08:20 | OP ---
PROCEDURE DATE: 09/07/2017 PREOPERATIVE DIAGNOSES: Appendicitis and a cecal mass. POSTOPERATIVE DIAGNOSES: Appendicitis and a cecal mass. OPERATION PERFORMED: Right hemicolectomy. SURGEON: Yusuf Anderson MD ASSISTANTS: Dr. Neri and Dr. Fang. DESCRIPTION OF PROCEDURE: In the operating room, the patient was identified by the name, name of the procedure, laterality, my neo, her wrist band, and consent. The abdomen was prepped and draped with chlorhexidine and alcohol after waiting for three minutes and a successful time-out, the operation began. A right midline incision was made and very quickly the abdomen was entered. Immediately obvious was a very large inflamed appendix that is seen on the CAT scan and the large cecal mass. Liver was unremarkable as was the rest of the examination. Using a deep retractor at the line of Toldt laterally, it was divided that allowed us to bring the tissues up very nicely proximally and distally coming up to the hepatic flexure. The distal small bowel was cleaned very nicely and brought up into the wound with the appendix. The transverse colon was identified, the omentum was pulled up, and the vascular plane between the colon and the omentum was developed. Eventually, after the hepatic flexure, the peritoneum on the hepatic flexure was divided and that allowed us to easily take down the hepatic flexure. The right colon was then pretty much in the air with blunt dissection and transverse colon to the right of the middle colic artery was divided and the mesentery down to the free plane were take down very nicely. The duodenum was identified, as was the kidney. Distally, the small bowel was divided. Initially, we were going to close the cecum; however, it was very edematous. Going more proximally, a nice piece was found of floppy normal intestine. This was divided with a DANIS, the mesentery was taken with the LigaSure up to the ileocolic artery. was then taken to remove the entire piece of colon. This was done with LigaSure firing it twice on each side. It came up very nicely. 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 The orifice of the appendix was not involved with tumor and was widely patent, easily accepting the tip of the right angle. The abdomen was copiously irrigated and dried. A flap was placed in the right upper quadrant and in the pelvis. There was some fluid in the pelvis that was cultured aerobically and anaerobically. The mesentery was closed after lining up the proximal and distal intestine, which were approximated with silk. Through nips on the end, a DANIS was and fired. Using Allis, the anastomosis was completed with the TA60 and was reinforced with several silks. The anastomosis was widely patent. was put over this area, the area was irrigated and dried. Vicente was placed laterally. The wound was injected with Marcaine, laps were taken out and were unremarkable. After a final visualization of everything, the incision was closed with running #1 PDS above and below, tied in the middle with a buried knot closed with Vicryl and followed by subcuticular PDS and Dermabond. The patient was taken to recovery room in good condition after the sponge and needle counts were declared correct. Yusuf Anderson MD
--- NOTE | 2017-09-10 08:23 | CP.PCM.PN ---
Subjective - Date & Time of Evaluation Date of Evaluation: 09/10/17 Time of Evaluation: 08:19 - Subjective Subjective: PGY1 General Surgery Note for Dr. Anderson Patient seen and examined at bedside this morning. No acute events overnight. Patient states that her pain has been well controlled since the surgery and she is currently tolerating a FLD. She is requesting a regular diet because she is hungry. Denies fevers, chills, nausea, vomiting, shortness of breath or chest pain. Objective - Vital Signs/Intake and Output Vital Signs (last 24 hours): Temp Pulse Resp BP Pulse Ox 98.5 F 94 H 18 146/80 95 09/10/17 07:30 09/10/17 07:30 09/10/17 07:30 09/10/17 07:30 09/10/17 07:30 Intake and Output: 09/10/17 09/10/17 06:59 18:59 Intake Total 720 Output Total 60 Balance 660 - Medications Medications: Current Medications Albuterol/Ipratropium (Duoneb 3 Mg/0.5 Mg (3 Ml) Ud) 3 ml IH Q4H PRN PRN Reason: Shortness of Breath Last Admin: 09/09/17 11:05 Dose: 3 ml Alprazolam (Xanax) 1 mg PO TID PRN; Protocol PRN Reason: Anxiety Last Admin: 09/10/17 01:56 Dose: 1 mg Amlodipine Besylate (Norvasc) 5 mg PO QAM [facility] Last Admin: 09/09/17 09:31 Dose: 5 mg Enoxaparin Sodium (Lovenox) 40 mg SC DAILY [facility] PRN Reason: Protocol Last Admin: 09/09/17 09:32 Dose: 40 mg Lactated Ringer's (Lactated Ringer's) 1,000 mls @ 50 mls/hr IV .Q20H [facility] Last Admin: 09/10/17 02:35 Dose: 50 mls/hr Insulin Human Lispro (Humalog Med) 0 units SC ACHS [facility] PRN Reason: Protocol Last Admin: 09/09/17 22:35 Dose: Not Given Magnesium Oxide (Mag-Ox) 400 mg PO DAILY [facility] Last Admin: 09/09/17 09:31 Dose: 400 mg Multivitamins (Thera Tab) 1 tab PO DAILY [facility] Last Admin: 09/09/17 09:57 Dose: 1 tab Non-Formulary Medication (Budesonide/Formoterol Fumarate [Symbicort 160-4.5 Mcg Inhaler]) 2 puff IH BID [facility] Last Admin: 09/09/17 18:20 Dose: 2 puff Ondansetron HCl (Zofran Inj) 4 mg IVP Q4H PRN PRN Reason: Nausea/Vomiting Pantoprazole Sodium (Protonix Inj) 40 mg IVP DAILY [facility] Last Admin: 09/09/17 09:32 Dose: 40 mg Quetiapine Fumarate (Seroquel) 200 mg PO 2000 [facility] PRN Reason: Protocol Last Admin: 09/09/17 20:21 Dose: 200 mg Tiotropium [place] (Spiriva) 18 mcg IH DAILY [facility] Last Admin: 09/09/17 09:31 Dose: 18 mcg Tramadol HCl (Ultram) 50 mg PO TID PRN PRN Reason: Pain, severe (8-10) Last Admin: 09/09/17 06:13 Dose: 50 mg Valsartan (Diovan) 320 mg PO QAM [facility] Last Admin: 09/09/17 09:31 Dose: 320 mg - Labs Labs: 09/10/17 06:30 09/10/17 06:30 PT 15.8 SECONDS (9.4-12.5) H 09/07/17 06:00 INR 1.43 (0.93-1.08) H 09/07/17 06:00 APTT 50.5 Seconds (25.1-36.5) H 09/07/17 06:00 - Constitutional Appears: Non-toxic, No Acute Distress - Head Exam Head Exam: ATRAUMATIC, NORMOCEPHALIC - Eye Exam Eye Exam: EOMI, Normal appearance. absent: Scleral icterus - ENT Exam ENT Exam: Mucous Membranes Moist - Respiratory Exam Respiratory Exam: NORMAL BREATHING PATTERN. absent: Accessory Muscle Use, Respiratory Distress - Cardiovascular Exam Cardiovascular Exam: REGULAR RHYTHM - GI/Abdominal Exam GI & Abdominal Exam: Distended, Soft. absent: Firm, Guarding, Rigid, Tenderness Additional comments: midline incision with dressing, c/d/i. Pierre drain in place in RLQ with serosanguineous fluid output - 85cc/12hrs. - Neurological Exam Neurological Exam: Alert, Awake, Oriented x3 - Psychiatric Exam Psychiatric exam: Normal Affect, Normal Mood - Skin Skin Exam: Dry, Warm Assessment and Plan - Assessment and Plan (Free Text) Assessment: 72F s/p R hemicolectomy for appendicitis & cecal mass: POD#3 Plan: - advanced to soft diet - monitor pierre output - DC ABX, no indication for continued ABX at this time - Encourage out of bed to chair and ambulation - IS use Will discuss with Dr. Justin Xavier Sheridan PGY1
[2017-09-10] MEDS: Insulin Lispro (humaLOG) MEDIUM Coverage SC SCH ×2 (08:26→12:03)
--- NOTE | 2017-09-10 10:07 | CP.PCM.PN ---
Subjective - Date & Time of Evaluation Date of Evaluation: 09/10/17 Time of Evaluation: 09:00 - Subjective Subjective: Patient seen and evaluated this AM at bedside. Patient resting comfortably in bed. No acute events overnight. Patient is POD#3. Patient reports passing flatus , denies bowel movement. Patient denies chest pain, shortness of breath, uncontrolled abdominal pain, fever, chills, nausea, vomiting. Tolerating diet at this time with plan to advance. Objective - Vital Signs/Intake and Output Vital Signs (last 24 hours): Temp Pulse Resp BP Pulse Ox 98.5 F 94 H 18 146/80 95 09/10/17 07:30 09/10/17 07:30 09/10/17 07:30 09/10/17 07:30 09/10/17 07:30 Intake and Output: 09/10/17 09/10/17 06:59 18:59 Intake Total 1420 Output Total 330 Balance 1090 - Medications Medications: Current Medications Albuterol/Ipratropium (Duoneb 3 Mg/0.5 Mg (3 Ml) Ud) 3 ml IH Q4H PRN PRN Reason: Shortness of Breath Last Admin: 09/09/17 11:05 Dose: 3 ml Alprazolam (Xanax) 1 mg PO TID PRN; Protocol PRN Reason: Anxiety Last Admin: 09/10/17 08:26 Dose: 1 mg Amlodipine Besylate (Norvasc) 5 mg PO QAM [facility] Last Admin: 09/09/17 09:31 Dose: 5 mg Enoxaparin Sodium (Lovenox) 40 mg SC DAILY [facility] PRN Reason: Protocol Last Admin: 09/09/17 09:32 Dose: 40 mg Lactated Ringer's (Lactated Ringer's) 1,000 mls @ 50 mls/hr IV .Q20H [facility] Last Admin: 09/10/17 02:35 Dose: 50 mls/hr Insulin Human Lispro (Humalog Med) 0 units SC ACHS [facility] PRN Reason: Protocol Last Admin: 09/10/17 08:26 Dose: 1 units Magnesium Oxide (Mag-Ox) 400 mg PO DAILY [facility] Last Admin: 09/09/17 09:31 Dose: 400 mg Multivitamins (Thera Tab) 1 tab PO DAILY [facility] Last Admin: 09/09/17 09:57 Dose: 1 tab Non-Formulary Medication (Budesonide/Formoterol Fumarate [Symbicort 160-4.5 Mcg Inhaler]) 2 puff IH BID [facility] Last Admin: 09/09/17 18:20 Dose: 2 puff Ondansetron HCl (Zofran Inj) 4 mg IVP Q4H PRN PRN Reason: Nausea/Vomiting Pantoprazole Sodium (Protonix Inj) 40 mg IVP DAILY [facility] Last Admin: 09/09/17 09:32 Dose: 40 mg Quetiapine Fumarate (Seroquel) 200 mg PO 2000 [facility] PRN Reason: Protocol Last Admin: 09/09/17 20:21 Dose: 200 mg Tiotropium [place] (Spiriva) 18 mcg IH DAILY [facility] Last Admin: 09/09/17 09:31 Dose: 18 mcg Tramadol HCl (Ultram) 50 mg PO TID PRN PRN Reason: Pain, severe (8-10) Last Admin: 09/09/17 06:13 Dose: 50 mg Valsartan (Diovan) 320 mg PO QAM [facility] Last Admin: 09/09/17 09:31 Dose: 320 mg - Labs Labs: 09/10/17 06:30 09/10/17 06:30 PT 15.8 SECONDS (9.4-12.5) H 09/07/17 06:00 INR 1.43 (0.93-1.08) H 09/07/17 06:00 APTT 50.5 Seconds (25.1-36.5) H 09/07/17 06:00 - Constitutional Appears: Well, Non-toxic - Head Exam Head Exam: ATRAUMATIC, NORMAL INSPECTION, NORMOCEPHALIC - Eye Exam Eye Exam: EOMI, PERRL Pupil Exam: PERRL - ENT Exam ENT Exam: Mucous Membranes Moist, Normal Exam - Neck Exam Neck Exam: Full ROM. absent: Lymphadenopathy - Respiratory Exam Respiratory Exam: Clear to Ausculation Bilateral, NORMAL BREATHING PATTERN. absent: Rales, Wheezes - Cardiovascular Exam Cardiovascular Exam: REGULAR RHYTHM, +S1, +S2. absent: Murmur - GI/Abdominal Exam GI & Abdominal Exam: Soft, Tenderness, Diminished Bowel Sounds. absent: Guarding Additional comments: midline surgical scar with michael, dry, intact, no drainage noted, no erythema - Extremities Exam Extremities Exam: Full ROM, Normal Inspection. absent: Calf Tenderness - Back Exam Back Exam: NORMAL INSPECTION - Neurological Exam Neurological Exam: Alert, Awake, CN II-XII Intact, Oriented x3 - Psychiatric Exam Psychiatric exam: Normal Affect, Normal Mood - Skin Skin Exam: Dry, Normal Color, Warm. absent: Cyanosis, Diaphoretic, Rash Assessment and Plan - Assessment and Plan (Free Text) Assessment: 72 year old female with past medical history that includes COPD, HTN, DM2, GERD , and anemia presented to [facility] ED complaining of abdominal pain, found to have acute appendicitis and mass of cecum measuring 4x5 cm. Pt is POD #3 right hemicolectomy. Plan: 1. Acute appendicitis - POD#3 right hemicolectomy - CLD tolerated, will advance to soft today - Promote OOB to chair, incentive spirometry - CT abdomen PO and IV: Evidence of appendicitis with dilatation to 13 mm with appendiceal wall thickening and surrounding inflammation without abscess - Abx d/c per surgery - Zofran and morphine prn - Tramadol for pain 2. Cecal mass - POD #3 right hemicolectomy, f/u pathology - CT abd/pelvis showed acute appendicitis and large cecum mass 4x5 cm - General surgery consulted - GI consulted, appreciate recs - Patient with history of colonoscopy demonstrating sigmoid and rectum polyps, biopsy done showing tubular adenoma - CEA level elevated, consider Heme/onc consult - GI following, appreciate recs 3. Hypokalemia - stable - K 4.0 - Cont to monitor, replete as needed 4. Hypophosphatemia - Phos 2.7 - Neutraphos x2 given - Cont to monitor, replete as needed 5. Leukocytosis, resovled - Afebrile - Cultures negative 6. DM2 - ISS - Accuchecks 7. HTN - Cont home medications - Continue to monitor 8. COPD - Duonebs prn GI ppx: Protonix DVT ppx: SCD, Lovenox
[2017-09-10] MEDS: Non Formulary Medication (Budesonide/Formoterol Fumarate [Symbicort 160-4.5 Mcg Inhaler] 2 IH SCH (10:46)
[2017-09-10] MEDS: Enoxaparin 40 mg Syringe SC SCH (10:46)
[2017-09-10] MEDS: Magnesium Oxide 400 mg Tab UD PO SCH (10:47)
[2017-09-10] MEDS: Tiotropium 18 mcg Cap For Inhalation IH SCH (10:48)
[2017-09-10] MEDS: Multivitamin Therapeutic Tab PO SCH (10:49)
[2017-09-10 10:56] VITALS: PULSE 85
[2017-09-10] MEDS: Albuterol-Ipratrop 3 mg / 0.5 (3 ml) UD IH PRN (11:24)
[2017-09-10] MEDS ORDERED: Potassium & Sodium Phosphate PO SCH (14:00)
[2017-09-10] MEDS ORDERED: Albuterol-Ipratrop 3 mg / 0.5 (3 ml) UD IH SCH (14:00)
--- NOTE | 2017-09-10 14:48 | CP.PCM.DIS ---
Provider - Provider Date of Admission: 09/06/17 17:37 Attending physician: Catrachito Reeves MD Primary care physician: Ryan Johnson MD Consults: General Surgery: Dr. Anderson Gastroenterology: Dr. Azar Time Spent in preparation of Discharge (in minutes): 25 Diagnosis - Discharge Diagnosis (1) Acute appendicitis Status: Acute (2) Mass of cecum Status: Acute Hospital Course - Lab Results Lab Results: Micro Results 09/07/17 17:39 Other: Please Indicate Gram Stain - Final 09/07/17 17:39 Other: Please Indicate Tissue Culture - Final No growth. Most Recent Lab Values WBC 7.7 10^3/ul (4.5-11.0) 09/10/17 06:30 RBC 3.52 10^6/uL (3.5-6.1) 09/10/17 06:30 Hgb 9.3 g/dL (12.0-16.0) L 09/10/17 06:30 Hct 29.7 % (36.0-48.0) L 09/10/17 06:30 MCV 84.4 fl (80.0-105.0) 09/10/17 06:30 MCH 26.4 pg (25.0-35.0) 09/10/17 06:30 MCHC 31.3 g/dl (31.0-37.0) 09/10/17 06:30 RDW 15.0 % (11.5-14.5) H 09/10/17 06:30 Plt Count 318 10^3/uL (120.0-450.0) 09/10/17 06:30 MPV 8.2 fl (7.0-11.0) 09/10/17 06:30 Gran % 74.1 % (50.0-68.0) H 09/10/17 06:30 Lymph % (Auto) 15.0 % (22.0-35.0) L 09/10/17 06:30 Piatt % (Auto) 7.8 % (1.0-6.0) H 09/10/17 06:30 Eos % (Auto) 2.7 % (1.5-5.0) 09/10/17 06:30 Baso % (Auto) 0.4 % (0.0-3.0) 09/10/17 06:30 Gran # 5.71 (1.4-6.5) 09/10/17 06:30 Lymph # 1.2 (1.2-3.4) 09/10/17 06:30 Piatt # 0.6 (0.1-0.6) 09/10/17 06:30 Eos # 0.2 (0.0-0.7) 09/10/17 06:30 Baso # 0.03 K/mm3 (0.0-2.0) 09/10/17 06:30 PT 15.8 SECONDS (9.4-12.5) H 09/07/17 06:00 INR 1.43 (0.93-1.08) H 09/07/17 06:00 APTT 50.5 Seconds (25.1-36.5) H 09/07/17 06:00 Sodium 139 mmol/L (132-148) 09/10/17 06:30 Potassium 4.0 mmol/L (3.6-5.0) 09/10/17 06:30 Chloride 104 mmol/L (98-107) 09/10/17 06:30 Carbon Dioxide 30 mmol/L (21-33) 09/10/17 06:30 Anion Gap 9 (10-20) L 09/10/17 06:30 BUN 5 mg/dL (7-21) L 09/10/17 06:30 Creatinine 0.5 mg/dL (0.7-1.2) L 09/10/17 06:30 Est GFR ( Amer) > 60 09/10/17 06:30 Est GFR (Non-Af Amer) > 60 09/10/17 06:30 POC Glucose (mg/dL) 260 mg/dL (65-110) H 09/10/17 11:29 Random Glucose 168 mg/dL (70-110) H 09/10/17 06:30 Lactic Acid 1.3 mmol/L (0.7-2.1) 09/06/17 10:50 Calcium 9.3 mg/dL (8.4-10.5) 09/10/17 06:30 Phosphorus 2.7 mg/dL (2.5-4.5) 09/10/17 06:30 Magnesium 1.8 mg/dL (1.7-2.2) 09/10/17 06:30 Total Bilirubin 0.5 mg/dL (0.2-1.3) 09/10/17 06:30 AST 15 U/L (14-36) 09/10/17 06:30 ALT 24 U/L (7-56) 09/10/17 06:30 Alkaline Phosphatase 65 U/L (38-126) 09/10/17 06:30 Lactate Dehydrogenase 303 U/L (333-699) L 09/06/17 13:00 Total Creatine Kinase < 20 U/L (35-230) L 09/06/17 13:00 Troponin I < 0.01 ng/mL D 09/06/17 13:00 Total Protein 5.2 g/dL (5.8-8.3) L 09/10/17 06:30 Albumin 2.7 g/dL (3.0-4.8) L 09/10/17 06:30 Globulin 2.5 gm/dL 09/10/17 06:30 Albumin/Globulin Ratio 1.1 (1.1-1.8) 09/10/17 06:30 Amylase 39 U/L (35-125) 09/06/17 13:00 Lipase 22 U/L (23-300) L 09/06/17 13:00 Carcinoembryonic Ag 11.4 ng/mL (0.0-3.0) H 09/06/17 20:27 Urine Color Yellow (YELLOW) 09/06/17 10:00 Urine Appearance Clear (CLEAR) 09/06/17 10:00 Urine pH 6.5 (4.7-8.0) 09/06/17 10:00 Ur Specific [place] <= 1.005 (1.005-1.035) 09/06/17 10:00 Urine Protein Negative mg/dL (<30 mg/dL) 09/06/17 10:00 Urine Glucose (UA) Negative mg/dL (NEGATIVE) 09/06/17 10:00 Urine Ketones Negative mg/dL (NEGATIVE) 09/06/17 10:00 Urine Blood Negative (NEGATIVE) 09/06/17 10:00 Urine Nitrate Negative (NEGATIVE) 09/06/17 10:00 Urine Bilirubin Negative (NEGATIVE) 09/06/17 10:00 Urine Urobilinogen 0.2 E.U./dL (<1 E.U./dL) 09/06/17 10:00 Ur Leukocyte Esterase Small [place] Maria/uL (NEGATIVE) H 09/06/17 10:00 Urine RBC Negative /hpf (0-2) 09/06/17 10:00 Urine WBC 1 - 3 /hpf (0-6) 09/06/17 10:00 Ur Epithelial Cells 1 - 3 /hpf (0-5) 09/06/17 10:00 Urine Bacteria Few (NEG) 09/06/17 10:00 Blood Type O POSITIVE 09/06/17 20:27 Antibody Screen Negative 09/06/17 20:27 Crossmatch See Detail 09/06/17 20:27 BBK History Checked Patient has bt 09/06/17 20:27 - Hospital Course Hospital Course: Patient is a 72 year old female with PMH of COPD, HLD, HTN, DM2, GERD, OA and anemia who presented to [facility] ED complaining of bilateral intermittent lower abdominal pain and nausea. Patient was evaluated in ED with abdominal CT showing acute appendicitis, large cecum mass measuring 4x5cm along with thickening of the sigmoid colon. Patient was admitted to the hospital for CT findings and leukocytosis. General surgery and GI were consulted and evaluated the patient. General surgery decided to take the patient to the OR on 2016 for appendectomy and right hemicolectomy with removal of large cecum mass. Large cecum mass was sent for pathology workup due to suspicious malignancy clinical picture with recent 20 pound unintentional weight loss over the past year. Gastroenterology evaluated the patient and recommended continuation of empiric antibiotics and close observation and further management based on clinical course. After surgery the patient was monitored on the medical/surgery floor. Physical therapy evaluated the patient and assessed the patient to be deconditioned and recommended short course of rehabilitation for building up of strength. The patient was evaluated to be hemodynamically sable and appropriate for transfer to TCU for further rehabilitation and medical management. - Date & Time of H&P Date of H&P: 09/06/17 Time of H&P: 18:35 Discharge Exam - Head Exam Head Exam: ATRAUMATIC, NORMAL INSPECTION, NORMOCEPHALIC - Eye Exam Eye Exam: EOMI, PERRL Pupil Exam: PERRL - ENT Exam ENT Exam: Mucous Membranes Moist - Neck Exam Neck exam: Full Rom - Respiratory Exam Respiratory Exam: Clear to PA & Lateral, NORMAL BREATHING PATTERN. absent: Rales, Wheezes, Respiratory Distress - Cardiovascular Exam Cardiovascular Exam: REGULAR RHYTHM, +S1, +S2. absent: JVD, Systolic Murmur - GI/Abdominal Exam GI & Abdominal Exam: Diminished Bowel Sounds, Soft, Tenderness. absent: Firm, Guarding, Mass Additional comments: Surgical incision at midline with surgical michael in place, no evidence of drainage, pus, or erythema Vicente drain in place draining serosanguionous fluid, more sero than sanguinous - Extremities Exam Extremities exam: full ROM, pedal pulses present - Back Exam Back exam: NORMAL INSPECTION. absent: CVA tenderness (L), CVA tenderness (R) - Neurological Exam Neurological exam: Alert, CN II-XII Intact, Normal Gait, Oriented x3, Reflexes Normal - Psychiatric Exam Psychiatric exam: Normal Affect, Normal Mood - Skin Skin Exam: Dry, Intact, Normal Color, Warm Discharge Plan - Follow Up Plan Condition: FAIR Disposition: REHAB FACILITY/REHAB UNIT Additional Instructions: Discharge to TCU Referrals: Ryan Johnson MD [Primary Care Provider] -
--- NOTE | 2017-09-10 21:56 | PN ---
DATE: 09/10/2017 SUBJECTIVE: This patient was seen and evaluated earlier today. The patient is on certain solid diet, has been passing flatus, but still has some drainage about 270 of clear drainage in the drainage tube. PHYSICAL EXAMINATION: VITAL SIGNS: Temperature is 98.5, blood pressure 146/80, pulse 85 and respirations 18. HEENT: Atraumatic. Anicteric. NECK: Supple. HEART: S1 and S2 heard. LUNGS: Bilateral air entry present. ABDOMEN: Soft. There is no mass palpable on tenderness. The surgical incision appears clear and the drainage tube is still present. EXTREMITIES: No cyanosis. No edema. LABORATORY DATA: Hemoglobin 9.3, hematocrit 29.7, WBC 7.7 and platelets is about 318. BUN 5. IMPRESSION: Status post right hemicolectomy, fecal mass and distended appendix. Postoperative as per surgery. The diet has been advanced. The patient has clear drainage from the tube. The patient has nearly drainage of about 250 in the last shift. We will follow up with the pathology. Postop as per surgery. Thank you very much for allowing us to participate in the care of the patient. Александр Azar MD
[2017-09-11] MEDS ORDERED: Pantoprazole 40 mg EC Tab PO SCH (06:00)
== END 2017-09-10 15:26 | DRG 330 ==
LOC: ED 09:03 → ERH 17:37 → 5RNO 19:41
PROVIDERS: ADMIT Internal Medicine; ATTEND Internal Medicine
PROC: 0DTF0ZZ Resection of Right Large Intestine, Open Approach (ICD-10-PCS; principal; 2017-09-08)
DX: C18.0 Malignant neoplasm of cecum (principal); K35.80 Unspecified acute appendicitis; C77.2 Secondary and unspecified malignant neoplasm of intra-abdominal lymph nodes; N39.0 Urinary tract infection, site not specified; J43.9 Emphysema, unspecified; E83.39 Other disorders of phosphorus metabolism; D64.9 Anemia, unspecified; I10 Essential (primary) hypertension; E11.9 Type 2 diabetes mellitus without complications; E78.5 Hyperlipidemia, unspecified; K21.9 Gastro-esophageal reflux disease without esophagitis; M19.90 Unspecified osteoarthritis, unspecified site; D12.8 Benign neoplasm of rectum; D12.5 Benign neoplasm of sigmoid colon; E87.6 Hypokalemia; R63.4 Abnormal weight loss; Z96.653 Presence of artificial knee joint, bilateral; Z79.84 Long term (current) use of oral hypoglycemic drugs; Z79.82 Long term (current) use of aspirin; Z87.891 Personal history of nicotine dependence

== ENCOUNTER 2017-09-10 15:26 | Inpatient (IN) | payer OTHER, BC ==
[2017-09-10 16:26] VITALS: BMI 22.4
[2017-09-10] MEDS ORDERED: Albuterol-Ipratrop 3 mg / 0.5 (3 ml) UD IH PRN (16:27)
[2017-09-10] MEDS ORDERED: Lactated Ringer's 1,000 ML IV SCH (17:00)
[2017-09-10] MEDS: FORMOTEROL FUMARATE IH SCH (17:26)
[2017-09-10] MEDS: BUDESONIDE IH SCH (17:26)
[2017-09-10] MEDS: Potassium & Sodium Phosphate PO SCH (21:46)
[2017-09-10] MEDS: Albuterol-Ipratrop 3 mg / 0.5 (3 ml) UD IH SCH (22:00)
[2017-09-10] MEDS: Insulin Lispro (humaLOG) MEDIUM Coverage SC SCH (22:27)
[2017-09-11] MEDS: Albuterol-Ipratrop 3 mg / 0.5 (3 ml) UD IH SCH ×4 (03:00→19:26)
[2017-09-11] MEDS: Potassium & Sodium Phosphate PO SCH ×3 (06:07→21:26)
[2017-09-11] MEDS: Pantoprazole 40 mg EC Tab PO SCH (06:08)
[2017-09-11] MEDS: Insulin Lispro (humaLOG) MEDIUM Coverage SC SCH ×4 (07:02→22:35)
[2017-09-11 07:17] LABS: BASO # 0.03 K/mm3 (0.0-2.0); BASO % 0.3 % (0.0-3.0); EOS # 0.4 (0.0-0.7); EOS % 4.2 % (1.5-5.0); GRAN # 7.15 (1.4-6.5); GRAN % 75.2 % (50.0-68.0); HEMATOCRIT 34.2 % (36.0-48.0); LYMPH # 1.3 (1.2-3.4); LYMPH % 14.1 % (22.0-35.0); MEAN CELL VOLUME 84.4 fl (80.0-105.0); MEAN CORPUSCULAR HEMOGLOBIN 26.4 pg (25.0-35.0); MEAN CORPUSCULAR HGB CONC 31.3 g/dl (31.0-37.0); MEAN PLATELET VOLUME 8.2 fl (7.0-11.0); MONO # 0.6 (0.1-0.6); MONO % 6.2 % (1.0-6.0); RED CELL DISTRIBUTION WIDTH 15.1 % (11.5-14.5); WHITE BLOOD COUNT 9.5 10^3/ul (4.5-11.0)
[2017-09-11 07:44] LABS: ALB/GLOB RATIO 1.1 (1.1-1.8); ALKALINE PHOSPHATASE 72 U/L (38-126); ALT/SGPT 27 U/L (7-56); AST/SGOT 18 U/L (14-36); BILIRUBIN,TOTAL 0.5 mg/dL (0.2-1.3); BLOOD UREA NITROGEN 7 mg/dL (7-21); CALCIUM 9.6 mg/dL (8.4-10.5); CARBON DIOXIDE 31 mmol/L (21-33); CHLORIDE 101 mmol/L (98-107); GFR AFRICAN-AMERICAN > 60; GLUCOSE,RANDOM 180 mg/dL (70-110); POTASSIUM 4.2 mmol/L (3.6-5.0); SODIUM 138 mmol/L (132-148); TOTAL PROTEIN 5.8 g/dL (5.8-8.3)
[2017-09-11] MEDS ORDERED: Potassium & Sodium Phosphate PO ONE (09:30)
[2017-09-11] MEDS: BUDESONIDE IH SCH ×2 (10:53→17:32)
[2017-09-11] MEDS: FORMOTEROL FUMARATE IH SCH ×2 (10:53→17:32)
[2017-09-11] MEDS: Tiotropium 18 mcg Cap For Inhalation IH SCH (10:54)
[2017-09-11] MEDS: Multivitamin Therapeutic Tab PO SCH (10:54)
[2017-09-11] MEDS: Enoxaparin 40 mg Syringe SC SCH (10:56)
[2017-09-11] MEDS: Magnesium Oxide 400 mg Tab UD PO SCH (10:56)
--- NOTE | 2017-09-11 13:20 | CP.PCM.CON ---
History of Present Illness - History of Present Illness History of Present Illness: PRESENTATION: Patient is a 72 year old female seen in her hospital bed. This consult was requested for medication management. This patient has a long history of depression personally and in her family. She has been tried on many medications but the combination of Seroquel and Xanax for the last few years have been helpful for her. She has been stable and able to enjoy her life more including a recent trip to [place]. Past Patient History - Infectious Disease Hx of Infectious Diseases: None - Tetanus Immunizations Tetanus Immunization: Unknown - Past Social History Smoking Status: Former Smoker - CARDIAC Hx Cardiac Disorders: Yes Hx Hypertension: Yes - PULMONARY Hx Chronic Obstructive Pulmonary Disease (COPD): Yes (no Home O2) - NEUROLOGICAL Hx Paralysis: No - HEENT Hx Cataracts: Yes (removal b/l) - RENAL Hx Chronic Kidney Disease: No - ENDOCRINE/METABOLIC Hx Diabetes Mellitus Type 2: Yes - HEMATOLOGICAL/ONCOLOGICAL Hx Blood Disorders: Yes Hx Anemia: Yes (blood transfusion and iron replacement) - INTEGUMENTARY Hx Dermatological Problems: No - MUSCULOSKELETAL/RHEUMATOLOGICAL Hx Arthritis: Yes (OA) - GASTROINTESTINAL Hx Gastrointestinal Disorders: Yes (gastritis, gas,) Hx Diverticulitis: Yes Hx Gastroesophageal Reflux: Yes Other/Comment: "can't eat a lot of things" pt stated, has been alternating from normal bm's to diarrhea, for about 6 months - GENITOURINARY/GYNECOLOGICAL Hx Genitourinary Disorders: Yes Hx Urinary Tract Infection: Yes (dx 3 days ago on amoxicillin x2 days) Other/Comment: bladder sling procedure, dropped and became "heavy"c/o feels like she has to urinate and can't - PSYCHIATRIC Hx Depression: Yes Hx Emotional Abuse: No Hx Physical Abuse: No - SURGICAL HISTORY Hx Surgeries: Yes - ANESTHESIA Hx Anesthesia Reactions: No Hx Malignant Hyperthermia: No Meds Allergies/Adverse Reactions: Allergies Allergy/AdvReac Type Severity Reaction Status Date / Time levofloxacin [From Levaquin] Allergy Severe PAIN Verified 09/10/17 16:26 - Medications Medications: Current Medications Albuterol/Ipratropium (Duoneb 3 Mg/0.5 Mg (3 Ml) Ud) 3 ml IH Q4H PRN; Protocol PRN Reason: Shortness of Breath Albuterol/Ipratropium (Duoneb 3 Mg/0.5 Mg (3 Ml) Ud) 3 ml IH [id number] RAYMUNDO PRN Reason: Protocol Last Admin: 09/11/17 07:22 Dose: 3 ml Alprazolam (Xanax) 1 mg PO TID PRN; Protocol PRN Reason: Anxiety Last Admin: 09/11/17 03:58 Dose: 1 mg Amlodipine Besylate (Norvasc) 5 mg PO DAILY RAYMUNDO PRN Reason: Protocol Last Admin: 09/11/17 10:55 Dose: 5 mg Enoxaparin Sodium (Lovenox) 40 mg SC DAILY RAYMUNDO PRN Reason: Protocol Last Admin: 09/11/17 10:56 Dose: 40 mg Lactated Ringer's (Lactated Ringer's) 1,000 mls @ 50 mls/hr IV .Q20H RAYMUNDO PRN Reason: Protocol Last Admin: 09/10/17 17:24 Dose: Not Given Insulin Human Lispro (Humalog Med) 0 units SC ACHS RAYMUNDO PRN Reason: Protocol Last Admin: 09/11/17 07:02 Dose: 3 units Magnesium Oxide (Mag-Ox) 400 mg PO DAILY RAYMUNDO PRN Reason: Protocol Last Admin: 09/11/17 10:56 Dose: 400 mg Multivitamins (Thera Tab) 1 tab PO DAILY [facility] Last Admin: 09/11/17 10:54 Dose: 1 tab Budesonide/Formoterol Fumarate [Symbicort 160-4.5 Mcg Inhaler] 2 2 puff IH BID [facility] Last Admin: 09/11/17 10:53 Dose: Not Given Ondansetron HCl (Zofran Inj) 4 mg IVP Q4H PRN; Protocol PRN Reason: Nausea/Vomiting Last Admin: 09/11/17 09:39 Dose: 4 mg Pantoprazole Sodium (Protonix Ec Tab) 40 mg PO 0600 [facility] PRN Reason: Protocol Last Admin: 09/11/17 06:08 Dose: 40 mg Potassium Phos/Sodium Phos (Neutra-Phos) 2 pkt PO Q8 RAYMUNDO PRN Reason: Protocol Last Admin: 09/11/17 06:07 Dose: Not Given Quetiapine Fumarate (Seroquel) 200 mg PO 2000 [facility] PRN Reason: Protocol Last Admin: 09/10/17 19:58 Dose: 200 mg Tiotropium [place] (Spiriva) 18 mcg IH DAILY RAYMUNDO PRN Reason: Protocol Last Admin: 09/11/17 10:54 Dose: 18 mcg Tramadol HCl (Ultram) 50 mg PO TID PRN; Protocol PRN Reason: Pain, severe (8-10) Last Admin: 09/11/17 09:39 Dose: 50 mg Valsartan (Diovan) 320 mg PO QAM RAYMUNDO PRN Reason: Protocol Last Admin: 09/11/17 10:54 Dose: 320 mg Results - Vital Signs Recent Vital Signs: Last Vital Signs Temp 98.5 F 09/11/17 06:00 Pulse 90 09/11/17 06:00 Resp 18 09/11/17 06:00 BP 128/61 09/11/17 10:55 Pulse Ox 95 09/11/17 06:00 - Labs Result Diagrams: 09/11/17 06:45 09/11/17 06:45 Labs: Laboratory Results - last 24 hr 09/11/17 09/11/17 06:45 06:45 WBC 9.5 D RBC 4.05 Hgb 10.7 L Hct 34.2 L MCV 84.4 MCH 26.4 MCHC 31.3 RDW 15.1 H Plt Count 401 MPV 8.2 Gran % 75.2 H Lymph % (Auto) 14.1 L [place] % (Auto) 6.2 H Eos % (Auto) 4.2 Baso % (Auto) 0.3 Gran # 7.15 H Lymph # 1.3 [place] # 0.6 Eos # 0.4 Baso # 0.03 Sodium 138 Potassium 4.2 Chloride 101 Carbon Dioxide 31 Anion Gap 10 BUN 7 Creatinine 0.7 Est GFR ( Amer) > 60 Est GFR (Non-Af Amer) > 60 Random Glucose 180 H Calcium 9.6 Total Bilirubin 0.5 AST 18 ALT 27 Alkaline Phosphatase 72 Total Protein 5.8 Albumin 3.0 Globulin 2.7 Albumin/Globulin Ratio 1.1
--- NOTE | 2017-09-11 14:58 | CP.PCM.HP ---
<Sesar White - Last Filed: 09/12/17 06:53> History of Present Illness - History of Present Illness History of Present Illness: CC: Rehabilitation HPI: Patient is a 72 year old female with PMH of COPD, HLD, HTN, DM2, GERD, OA and anemia who [place] [facility] [place] complaining of bilateral intermittent lower abdominal pain and nausea. Patient was evaluated in ED with abdominal CT showing acute appendicitis, large cecum mass measuring 4x5cm along with thickening of the sigmoid colon. Patient was admitted to the hospital for CT findings and leukocytosis. General surgery and GI were consulted and evaluated the patient. General surgery decided to take the patient to the OR on 09/07/2017 for appendectomy and right hemicolectomy with removal of large cecum mass. Large cecum mass was sent for pathology workup due to suspicious malignancy clinical picture with recent 20 pound unintentional weight loss over the past year. Gastroenterology evaluated the patient and recommended continuation of empiric antibiotics and close observation and further management based on clinical course. After surgery, the patient was monitored on the medical/surgery floor. Physical therapy evaluated the patient and assessed the patient to be deconditioned and recommended short course of rehabilitation for building up of strength. Patient is admitted to TCU for reconditioning and further observation. PMHx: COPD HLD, HTN, DM2, GERD, OA, and anemia PSHx: B/L Knee Replacement, cataracts, colonoscopy SHx: Quit smoking 1984, denied etoh or illicits Home meds: Symbicort, trintellex, buproprion, Xanax, mag ox, glimepride, ferros fumarate, asa, metformin, Mobic, pravastatin, Zofran, omega 3, montelukast, Spiriva, diovan, Prilosec, augmentin, Seroquel, Norvasc Allergies: Levofloxacin PMD: Dr. Johsnon Present on Admission - Present on Admission Any Indicators Present on Admission: No Review of Systems - Constitutional Constitutional: absent: Chills, Fever - EENT Eyes: absent: Blurred Vision, Diplopia, Discharge Nose/Mouth/Throat: absent: Epistaxis, Nasal Congestion, Nasal Discharge - Cardiovascular Cardiovascular: absent: Chest Pain, Chest Pain at Rest, Dyspnea, Edema, Orthopnea, Palpitations - Respiratory Respiratory: absent: Cough, Dyspnea, Hemoptysis - Gastrointestinal Gastrointestinal: Abdominal Pain, Bloating, Constipation - Genitourinary Genitourinary: absent: Difficulty Urinating, Dysuria, Hematuria - Musculoskeletal Musculoskeletal: absent: Arthralgias, Atrophy - Integumentary Integumentary: absent: Alopecia, Dry Skin, Lesions, Jaundice - Neurological Neurological: absent: Abnormal Gait, Confusion, Dizziness, Numbness, Focal Weakness, Headaches, Syncope, Vertigo, Weakness - Psychiatric Psychiatric: absent: Anxiety, Depression - Endocrine Endocrine: absent: Cold Intolorance, Heat Intolorance, Palpitations - Hematologic/Lymphatic Hematologic: absent: Easy Bleeding, Easy Bruising Past Patient History - Infectious Disease Hx of Infectious Diseases: None - Tetanus Immunizations Tetanus Immunization: Unknown - Past Social History Smoking Status: Former Smoker - CARDIAC Hx Cardiac Disorders: Yes Hx Hypertension: Yes - PULMONARY Hx Chronic Obstructive Pulmonary Disease (COPD): Yes (no Home O2) - NEUROLOGICAL Hx Paralysis: No - HEENT Hx Cataracts: Yes (removal b/l) - RENAL Hx Chronic Kidney Disease: No - ENDOCRINE/METABOLIC Hx Diabetes Mellitus Type 2: Yes - HEMATOLOGICAL/ONCOLOGICAL Hx Blood Disorders: Yes Hx Anemia: Yes (blood transfusion and iron replacement) - INTEGUMENTARY Hx Dermatological Problems: No - MUSCULOSKELETAL/RHEUMATOLOGICAL Hx Arthritis: Yes (OA) - GASTROINTESTINAL Hx Gastrointestinal Disorders: Yes (gastritis, gas,) Hx Diverticulitis: Yes Hx Gastroesophageal Reflux: Yes Other/Comment: "can't eat a lot of things" pt stated, has been alternating from normal bm's to diarrhea, for about 6 months - GENITOURINARY/GYNECOLOGICAL Hx Genitourinary Disorders: Yes Hx Urinary Tract Infection: Yes (dx 3 days ago on amoxicillin x2 days) Other/Comment: bladder sling procedure, dropped and became "heavy"c/o feels like she has to urinate and can't - PSYCHIATRIC Hx Depression: Yes Hx Emotional Abuse: No Hx Physical Abuse: No - SURGICAL HISTORY Hx Surgeries: Yes - ANESTHESIA Hx Anesthesia Reactions: No Hx Malignant Hyperthermia: No Meds Allergies/Adverse Reactions: Allergies Allergy/AdvReac Type Severity Reaction Status Date / Time levofloxacin [From Levaquin] Allergy Severe PAIN Verified 09/11/17 22:58 Physical Exam - Constitutional Appears: Well, No Acute Distress - Head Exam Head Exam: ATRAUMATIC, NORMAL INSPECTION, NORMOCEPHALIC - Eye Exam Eye Exam: EOMI, PERRL - ENT Exam ENT Exam: Mucous Membranes Moist - Neck Exam Neck exam: Positive for: Full Rom, Normal Inspection. Negative for: Lymphadenopathy, Thyromegaly - Respiratory Exam Respiratory Exam: Clear to Auscultation Bilateral, NORMAL BREATHING PATTERN. absent: Rales, Rhonchi, Wheezes - Cardiovascular Exam Cardiovascular Exam: REGULAR RHYTHM, +S1, +S2 - GI/Abdominal Exam GI & Abdominal Exam: Soft, Tenderness (mild diffuse abdominal pain). absent: Firm, Organomegaly Additional comments: midline incisional scar with michael in place, no eyrthema, drainage, swelling noted hernandez drain with serosanguinous fluid present, surgical dressing c/d/i - Extremities Exam Extremities exam: Positive for: normal inspection. Negative for: calf tenderness, pedal edema - Back Exam Back exam: NORMAL INSPECTION. absent: CVA tenderness (L), CVA tenderness (R) - Neurological Exam Neurological exam: Alert, CN II-XII Intact, Oriented x3 - Psychiatric Exam Psychiatric exam: Normal Affect, Normal Mood - Skin Skin Exam: Dry, Intact, Normal Color, Warm Results - Vital Signs Recent Vital Signs: Last Vital Signs Temp 98.5 F 09/11/17 06:00 Pulse 90 09/11/17 06:00 Resp 18 09/11/17 06:00 BP 104/65 09/11/17 12:08 Pulse Ox 95 09/11/17 06:00 - Labs Result Diagrams: 09/12/17 06:30 09/11/17 06:45 Labs: Laboratory Results - last 24 hr 09/11/17 09/11/17 06:45 06:45 WBC 9.5 D RBC 4.05 Hgb 10.7 L Hct 34.2 L MCV 84.4 MCH 26.4 MCHC 31.3 RDW 15.1 H Plt Count 401 MPV 8.2 Gran % 75.2 H Lymph % (Auto) 14.1 L [place] % (Auto) 6.2 H Eos % (Auto) 4.2 Baso % (Auto) 0.3 Gran # 7.15 H Lymph # 1.3 [place] # 0.6 Eos # 0.4 Baso # 0.03 Sodium 138 Potassium 4.2 Chloride 101 Carbon Dioxide 31 Anion Gap 10 BUN 7 Creatinine 0.7 Est GFR ( Amer) > 60 Est GFR (Non-Af Amer) > 60 Random Glucose 180 H Calcium 9.6 Total Bilirubin 0.5 AST 18 ALT 27 Alkaline Phosphatase 72 Total Protein 5.8 Albumin 3.0 Globulin 2.7 Albumin/Globulin Ratio 1.1 Assessment & Plan - Assessment and Plan (Free Text) Assessment: 72 year old female with past medical history that includes COPD, HTN, DM2, GERD , and anemia presented [place] [facility] [place] complaining of abdominal pain, found to have acute appendicitis and mass of cecum measuring 4x5 cm. Pt is s/p right hemicolectomy admitted to TCU for further rehabilitation with PT for deconditioning. Plan: 1. Deconditioning - s/p hemicolectomy, appendectomy - Continue with PT - TCU for further monitoring and observation 2. Acute appendicitis - s/p hemicolectomy, appendectomy - CLD tolerated, will advance to soft today - Promote OOB to chair, incentive spirometry - CT abdomen PO and IV: Evidence of appendicitis with dilatation to 13 mm with appendiceal wall thickening and surrounding inflammation without abscess - Zofran prn - Tramadol for pain 3. Cecal mass s/p right hemicolectomy - CT abd/pelvis showed acute appendicitis and large cecum mass 4x5 cm - General surgery consulted, following - GI consulted, appreciate recs - Patient with history of colonoscopy demonstrating sigmoid and rectum polyps, biopsy done showing tubular adenoma - CEA level elevated - f/u pathology report 4. Hypokalemia - stable - K 4.2 - Cont to monitor, replete as needed 5. Hypophosphatemia - Neutraphos x2 - Cont to monitor, replete as needed 6. Leukocytosis, resovled - Afebrile - Cultures negative 7. DM2 - ISS - Accuchecks 8. HTN - Cont home medications - Continue to monitor 9. COPD - Duonebs prn GI ppx: Protonix DVT ppx: SCD, Lovenox Case and plan discussed with attending - Date & Time Date: 09/11/17 Time: 15:08 <Catrachito Reeves - Last Filed: 09/13/17 15:55> Results - Vital Signs Recent Vital Signs: Last Vital Signs Temp 98.7 F 09/13/17 10:00 Pulse 101 H 09/13/17 10:00 Resp 18 09/13/17 10:00 BP 115/49 L 09/13/17 10:06 Pulse Ox 94 L 11/16/17 10:00 - Labs Result Diagrams: 09/13/17 06:30 09/13/17 06:30 Labs: Laboratory Results - last 24 hr 09/12/17 09/12/17 09/12/17 05:00 11:12 16:56 WBC RBC Hgb Hct MCV MCH MCHC RDW Plt Count MPV Gran % Lymph % (Auto) [place] % (Auto) Eos % (Auto) Baso % (Auto) Gran # Lymph # [place] # Eos # Baso # Sodium Potassium Chloride Carbon Dioxide Anion Gap BUN Creatinine Est GFR ( Amer) Est GFR (Non-Af Amer) POC Glucose (mg/dL) 186 H 209 H 177 H Random Glucose Calcium Phosphorus Magnesium Total Bilirubin AST ALT Alkaline Phosphatase Total Protein Albumin Globulin Albumin/Globulin Ratio 09/12/17 09/13/17 09/13/17 21:05 06:30 06:30 WBC 9.2 RBC 3.52 Hgb 9.2 L Hct 30.0 L MCV 85.2 MCH 26.1 MCHC 30.7 L RDW 15.2 H Plt Count 433 MPV 8.5 Gran % 78.2 H Lymph % (Auto) 11.5 L [place] % (Auto) 8.8 H Eos % (Auto) 1.2 L Baso % (Auto) 0.3 Gran # 7.23 H Lymph # 1.1 L [place] # 0.8 H Eos # 0.1 Baso # 0.03 Sodium 137 Potassium 4.2 Chloride 97 L Carbon Dioxide 34 H Anion Gap 11 BUN 15 Creatinine 0.8 Est GFR ( Amer) > 60 Est GFR (Non-Af Amer) > 60 POC Glucose (mg/dL) 168 H Random Glucose 150 H Calcium 9.3 Phosphorus 3.4 Magnesium 2.0 Total Bilirubin 0.5 AST 28 ALT 40 Alkaline Phosphatase 66 Total Protein 5.4 L Albumin 2.9 L Globulin 2.5 Albumin/Globulin Ratio 1.1 Attending/Attestation - Attestation I have personally seen and examined this patient.: Yes I have fully participated in the care of the patient.: Yes I have reviewed all pertinent clinical information: Yes Notes (Text): Patient was seen and examined with pesticide use medical coordinator. Agreed with resident assessment and plan. 72 year old female with past medical history of COPD, hypertension, diabetes and anemia who presented with complaint of RLQ pain. CT abd/pelvis showed acute appendicitis and large cecum mass 4x5 cm. Patient underwent s/p right hemicolectomy Pathology results are pending.CEA is elevated.She is tolerating diet. She is admitted in TCU for rehabilitation.We will monitor blood sugars. COPD is stable.Patient is not wheezing and not dyspnic. Management plan was discussed in detail with patient Education was provided.
--- NOTE | 2017-09-11 14:59 | CP.PCM.PN ---
Subjective - Date & Time of Evaluation Date of Evaluation: 09/11/17 Time of Evaluation: 14:59 - Subjective Subjective: PGY1 General Surgery Progress Note for Dr. Anderson Patient states she is feeling well. No acute events overnight. Patient states that her pain is controlled since the surgery and she is tolerating a regular diet. She has no complaints at this time. Denies fevers, chills, nausea, vomiting, shortness of breath or chest pain. Objective - Vital Signs/Intake and Output Vital Signs (last 24 hours): Temp Pulse Resp BP Pulse Ox 98.5 F 90 18 104/65 95 09/11/17 06:00 09/11/17 06:00 09/11/17 06:00 09/11/17 12:08 09/11/17 06:00 Intake and Output: 09/11/17 09/11/17 06:59 18:59 Intake Total 240 Output Total 180 Balance 60 - Medications Medications: Current Medications Albuterol/Ipratropium (Duoneb 3 Mg/0.5 Mg (3 Ml) Ud) 3 ml IH Q4H PRN; Protocol PRN Reason: Shortness of Breath Albuterol/Ipratropium (Duoneb 3 Mg/0.5 Mg (3 Ml) Ud) 3 ml IH [id number] RAYMUNDO PRN Reason: Protocol Last Admin: 09/11/17 13:38 Dose: Not Given Alprazolam (Xanax) 1 mg PO TID PRN; Protocol PRN Reason: Anxiety Last Admin: 09/11/17 03:58 Dose: 1 mg Amlodipine Besylate (Norvasc) 5 mg PO DAILY RAYMUNDO PRN Reason: Protocol Last Admin: 09/11/17 10:55 Dose: 5 mg Enoxaparin Sodium (Lovenox) 40 mg SC DAILY RAYMUNDO PRN Reason: Protocol Last Admin: 09/11/17 10:56 Dose: 40 mg Lactated Ringer's (Lactated Ringer's) 1,000 mls @ 50 mls/hr IV .Q20H RAYMUNDO PRN Reason: Protocol Last Admin: 09/10/17 17:24 Dose: Not Given Insulin Human Lispro (Humalog Med) 0 units SC ACHS RAYMUNDO PRN Reason: Protocol Last Admin: 09/11/17 13:25 Dose: 3 units Magnesium Oxide (Mag-Ox) 400 mg PO DAILY RAYMUNDO PRN Reason: Protocol Last Admin: 09/11/17 10:56 Dose: 400 mg Multivitamins (Thera Tab) 1 tab PO DAILY [facility] Last Admin: 09/11/17 10:54 Dose: 1 tab Budesonide/Formoterol Fumarate [Symbicort 160-4.5 Mcg Inhaler] 2 2 puff IH BID [facility] Last Admin: 09/11/17 10:53 Dose: Not Given Ondansetron HCl (Zofran Inj) 4 mg IVP Q4H PRN; Protocol PRN Reason: Nausea/Vomiting Last Admin: 09/11/17 13:29 Dose: 4 mg Pantoprazole Sodium (Protonix Ec Tab) 40 mg PO 0600 [facility] PRN Reason: Protocol Last Admin: 09/11/17 06:08 Dose: 40 mg Potassium Phos/Sodium Phos (Neutra-Phos) 2 pkt PO Q8 [facility] PRN Reason: Protocol Last Admin: 09/11/17 13:26 Dose: 2 pkt Quetiapine Fumarate (Seroquel) 200 mg PO 2000 [facility] PRN Reason: Protocol Last Admin: 09/10/17 19:58 Dose: 200 mg Tiotropium [place] (Spiriva) 18 mcg IH DAILY [facility] PRN Reason: Protocol Last Admin: 09/11/17 10:54 Dose: 18 mcg Tramadol HCl (Ultram) 50 mg PO TID PRN; Protocol PRN Reason: Pain, severe (8-10) Last Admin: 09/11/17 09:39 Dose: 50 mg Valsartan (Diovan) 320 mg PO QAM [facility] PRN Reason: Protocol Last Admin: 09/11/17 10:54 Dose: 320 mg - Labs Labs: 09/11/17 06:45 09/11/17 06:45 - Constitutional Appears: Non-toxic, No Acute Distress - Head Exam Head Exam: ATRAUMATIC, NORMOCEPHALIC - Eye Exam Eye Exam: EOMI, Normal appearance. absent: Scleral icterus - ENT Exam ENT Exam: Mucous Membranes Moist - Respiratory Exam Respiratory Exam: NORMAL BREATHING PATTERN. absent: Accessory Muscle Use, Respiratory Distress - Cardiovascular Exam Cardiovascular Exam: REGULAR RHYTHM - GI/Abdominal Exam GI & Abdominal Exam: Distended, Soft. absent: Firm, Guarding, Rigid, Tenderness , Rebound Additional comments: midline incision with dressing, c/d/i. Vicente drain in place in RLQ with serous fluid output - 180cc/12hrs. Fluid from drain sent for culture - Extremities Exam Extremities Exam: absent: Calf Tenderness, Pedal Edema - Neurological Exam Neurological Exam: Alert, Awake, Oriented x3 - Psychiatric Exam Psychiatric exam: Normal Affect, Normal Mood - Skin Skin Exam: Dry, Warm Assessment and Plan - Assessment and Plan (Free Text) Assessment: 72F s/p R hemicolectomy for appendicitis & cecal mass: POD#4 Plan: - tolerating regular diet - monitor vicente output - f/u fluid culture - dc IVF - Encourage out of bed to chair and ambulation - IS use Case discussed with Dr. Justin Xavier Sheridan PGY1
--- NOTE | 2017-09-11 18:27 | CON ---
HISTORY OF PRESENT ILLNESS: The patient is a 72-year-old female, multiple medical issues, COPD, hyperlipidemia, hypertension, diabetes, osteoarthritis. The patient was admitted to the medical side for lower abdominal pain and nausea. The patient had acute appendicitis. Right now, the patient was downgraded to transitional care unit. Psych consult was called because the patient had history of mental illness when she is on psychotropic medication. The patient was seen and examined today by nurse practitioner, . The patient presented to be in good spirit. The patient reported that she was seeing Dr. Azael Hernandez in the community. She is taking Seroquel for mood stabilization and insomnia. The patient is aware about risks, benefits and alternatives of the medications. The patient reported that she tolerates that well. The patient reported that she has followup appointment with Dr. Azael Hernandez. The patient denied being depressed. Denied thoughts of harming herself or others. Denied intent or plan. Insight and judgment are fair. Impulses are well controlled. PAST PSYCHIATRIC HISTORY: The patient denied history of suicidal attempt. The patient denied history of being admitted to the psychiatric inpatient unit. VITAL SIGNS: Reviewed, stable. MEDICATIONS: Reviewed. The patient is on Xanax 1 mg three times a day as well as Seroquel 200 mg at the nighttime. MENTAL STATUS EXAM: The patient presented to be alert and oriented, pleasant, and cooperative. Good eye contact. Speech was normal rate, tone, quality and quantity. Mood described "I feel better, I want to get better." Affect was reactive, mood congruent. Thought process was coherent and goal-directed. Thought content, the patient denied visual, auditory, or tactile hallucinations. Denied paranoid ideation. The patient denied thoughts of harming herself or others. Denied intent or plan. Insight and judgment are fair. Impulses are well controlled. IMPRESSION: As per history, the patient has mood disorder due to general medical condition. PLAN: Continue current management. Continue current medications. The patient has followup appointment. The patient deemed not to be in any imminent danger to self or others. The patient reported tolerated medications well. Denied any side effects. This hand sign writer will sign off. Should they have any questions give me a call back. Thank you very much for letting me participate in care of your patient. Nela Chowdhury MD
[2017-09-12] MEDS: Albuterol-Ipratrop 3 mg / 0.5 (3 ml) UD IH SCH ×4 (01:38→20:21)
[2017-09-12] MEDS: Pantoprazole 40 mg EC Tab PO SCH (05:33)
[2017-09-12] MEDS: Potassium & Sodium Phosphate PO SCH ×2 (05:33→13:41)
[2017-09-12 06:45] LABS: BASO # 0.02 K/mm3 (0.0-2.0); BASO % 0.2 % (0.0-3.0); EOS # 0.1 (0.0-0.7); EOS % 0.7 % (1.5-5.0); GRAN # 7.82 (1.4-6.5); GRAN % 80.8 % (50.0-68.0); HEMATOCRIT 30.6 % (36.0-48.0); LYMPH % 9.8 % (22.0-35.0); MEAN CELL VOLUME 84.3 fl (80.0-105.0); MEAN CORPUSCULAR HEMOGLOBIN 26.2 pg (25.0-35.0); MEAN PLATELET VOLUME 8.3 fl (7.0-11.0); MONO # 0.8 (0.1-0.6); MONO % 8.5 % (1.0-6.0); WHITE BLOOD COUNT 9.7 10^3/ul (4.5-11.0)
[2017-09-12 07:06] LABS: ALB/GLOB RATIO 1.1 (1.1-1.8); ALKALINE PHOSPHATASE 59 U/L (38-126); ALT/SGPT 36 U/L (7-56); AST/SGOT 19 U/L (14-36); BILIRUBIN,TOTAL 0.5 mg/dL (0.2-1.3); BLOOD UREA NITROGEN 14 mg/dL (7-21); CALCIUM 9.5 mg/dL (8.4-10.5); CARBON DIOXIDE 30 mmol/L (21-33); CHLORIDE 99 mmol/L (98-107); GFR AFRICAN-AMERICAN > 60; GLUCOSE,RANDOM 192 mg/dL (70-110); POTASSIUM 4.4 mmol/L (3.6-5.0); SODIUM 136 mmol/L (132-148); TOTAL PROTEIN 5.5 g/dL (5.8-8.3)
[2017-09-12] MEDS: Insulin Lispro (humaLOG) MEDIUM Coverage SC SCH ×4 (07:55→22:44)
[2017-09-12] MEDS: BUDESONIDE IH SCH ×2 (09:11→17:52)
[2017-09-12] MEDS: FORMOTEROL FUMARATE IH SCH ×2 (09:11→17:52)
[2017-09-12] MEDS: Enoxaparin 40 mg Syringe SC SCH (09:17)
[2017-09-12] MEDS: Magnesium Oxide 400 mg Tab UD PO SCH (09:19)
[2017-09-12] MEDS: Tiotropium 18 mcg Cap For Inhalation IH SCH ×2 (09:19→09:35)
[2017-09-12] MEDS: Multivitamin Therapeutic Tab PO SCH (09:20)
--- NOTE | 2017-09-12 13:15 | CP.PCM.PN ---
Subjective - Date & Time of Evaluation Date of Evaluation: 09/12/17 Time of Evaluation: 08:45 - Subjective Subjective: Surgery: Dr. Anderson Pt seen and examined. No acute events overnight. Pt states this morning she was a bit nauseous and had one small episode of non-bilious vomiting. She also admits to some diarrhea. States she's tolerating her diet and pain is well controlled. Ambulating wit PT but did not ambulate yesterday. Denies F/C. Objective - Vital Signs/Intake and Output Vital Signs (last 24 hours): Temp Pulse Resp BP Pulse Ox 98.2 F 95 H 15 143/75 95 09/11/17 17:18 09/12/17 09:19 09/11/17 17:18 09/12/17 09:19 09/11/17 10:00 - Medications Medications: Current Medications Acetaminophen (Tylenol 325mg Tab) 650 mg PO Q6H PRN PRN Reason: Pain, Mild (1-3) Albuterol/Ipratropium (Duoneb 3 Mg/0.5 Mg (3 Ml) Ud) 3 ml IH Q4H PRN; Protocol PRN Reason: Shortness of Breath Albuterol/Ipratropium (Duoneb 3 Mg/0.5 Mg (3 Ml) Ud) 3 ml IH [id number] RAYMUNDO PRN Reason: Protocol Last Admin: 09/12/17 07:32 Dose: Not Given Alprazolam (Xanax) 1 mg PO TID PRN; Protocol PRN Reason: Anxiety Last Admin: 09/12/17 09:12 Dose: 1 mg Amlodipine Besylate (Norvasc) 5 mg PO DAILY RAYMUNDO PRN Reason: Protocol Last Admin: 09/12/17 09:19 Dose: 5 mg Docusate Sodium (Colace) 100 mg PO BID RAYMUNDO Last Admin: 09/12/17 09:13 Dose: Not Given Enoxaparin Sodium (Lovenox) 40 mg SC DAILY RAYMUNDO PRN Reason: Protocol Last Admin: 09/12/17 09:17 Dose: 40 mg Lactated Ringer's (Lactated Ringer's) 1,000 mls @ 50 mls/hr IV .Q20H RAYMUNDO PRN Reason: Protocol Last Admin: 09/10/17 17:24 Dose: Not Given Insulin Human Lispro (Humalog Med) 0 units SC ACHS RAYMUNDO PRN Reason: Protocol Last Admin: 09/12/17 12:22 Dose: 3 units Magnesium Oxide (Mag-Ox) 400 mg PO DAILY [facility] PRN Reason: Protocol Last Admin: 09/12/17 09:19 Dose: 400 mg Multivitamins (Thera Tab) 1 tab PO DAILY [facility] Last Admin: 09/12/17 09:20 Dose: 1 tab Budesonide/Formoterol Fumarate [Symbicort 160-4.5 Mcg Inhaler] 2 2 puff IH BID [facility] Last Admin: 09/12/17 09:11 Dose: Not Given Ondansetron HCl (Zofran Inj) 4 mg IVP Q4H PRN; Protocol PRN Reason: Nausea/Vomiting Last Admin: 09/11/17 23:59 Dose: 4 mg Pantoprazole Sodium (Protonix Ec Tab) 40 mg PO 0600 [facility] PRN Reason: Protocol Last Admin: 09/12/17 05:33 Dose: 40 mg Potassium Phos/Sodium Phos (Neutra-Phos) 2 pkt PO Q8 [facility] PRN Reason: Protocol Last Admin: 09/12/17 05:33 Dose: Not Given Quetiapine Fumarate (Seroquel) 200 mg PO 2000 [facility] PRN Reason: Protocol Last Admin: 09/11/17 20:47 Dose: 200 mg Tiotropium [place] (Spiriva) 18 mcg IH DAILY [facility] PRN Reason: Protocol Last Admin: 09/12/17 09:35 Dose: Not Given Tramadol HCl (Ultram) 50 mg PO TID PRN; Protocol PRN Reason: Pain, severe (8-10) Last Admin: 09/11/17 09:39 Dose: 50 mg Valsartan (Diovan) 320 mg PO QAM [facility] PRN Reason: Protocol Last Admin: 09/12/17 09:17 Dose: 320 mg - Labs Labs: 09/12/17 06:30 09/12/17 06:30 - Constitutional Appears: Well, No Acute Distress - Head Exam Head Exam: ATRAUMATIC, NORMOCEPHALIC - Eye Exam Eye Exam: Normal appearance - ENT Exam ENT Exam: Mucous Membranes Moist - Respiratory Exam Respiratory Exam: NORMAL BREATHING PATTERN - Cardiovascular Exam Cardiovascular Exam: RRR - GI/Abdominal Exam GI & Abdominal Exam: Distended, Soft. absent: Guarding, Tenderness Additional comments: midline incision with michael in place; C/D/I. Vicente with serous drainage - Extremities Exam Extremities Exam: absent: Tenderness - Neurological Exam Neurological Exam: Alert, Awake, Oriented x3 - Skin Skin Exam: Dry, Warm Assessment and Plan - Assessment and Plan (Free Text) Assessment: 72F s/p R hemicolectomy for appendicitis and cecal mass; POD#5 Plan: - cont PT - monitor bowel function - monitor vicente output; will consider taking out before DC once ouput slows down - d/w Dr. Justin Neri, PGY-3 Surgery
--- NOTE | 2017-09-12 13:45 | RAD ---
HISTORY: recent abdominal surgery, diminished bowel sounds COMPARISON: No prior. FINDINGS: BOWEL: Normal. No obstruction. No free air. BONES: Normal. OTHER FINDINGS: A drainage catheter is seen in the pelvis. Surgical clips are seen to the right of midline. IMPRESSION: No active disease.
--- NOTE | 2017-09-12 16:22 | CP.PCM.PN ---
<Rhonda Jacobson - Last Filed: 09/12/17 16:22> Subjective - Date & Time of Evaluation Date of Evaluation: 09/12/17 Time of Evaluation: 10:25 - Subjective Subjective: seen and examined at bedside earlier this a.m., patient report having one episode of loose p.m. this morning, endorses this is her first BM since surgery , heno reports of overt GI bleeding. No appetite but ate fruit, vomited earlier today,no hematemesis. Objective - Vital Signs/Intake and Output Vital Signs (last 24 hours): Temp Pulse Resp BP Pulse Ox 98.2 F 95 H 15 143/75 95 09/11/17 17:18 09/12/17 09:19 09/11/17 17:18 09/12/17 09:19 09/11/17 10:00 Intake and Output: 09/12/17 09/12/17 06:59 18:59 Output Total 100 Balance -100 - Medications Medications: Current Medications Acetaminophen (Tylenol 325mg Tab) 650 mg PO Q6H PRN PRN Reason: Pain, Mild (1-3) Albuterol/Ipratropium (Duoneb 3 Mg/0.5 Mg (3 Ml) Ud) 3 ml IH Q4H PRN; Protocol PRN Reason: Shortness of Breath Albuterol/Ipratropium (Duoneb 3 Mg/0.5 Mg (3 Ml) Ud) 3 ml IH [id number] RAYMUNDO PRN Reason: Protocol Last Admin: 09/12/17 13:24 Dose: Not Given Alprazolam (Xanax) 1 mg PO TID PRN; Protocol PRN Reason: Anxiety Last Admin: 09/12/17 14:29 Dose: 1 mg Amlodipine Besylate (Norvasc) 5 mg PO DAILY [facility] PRN Reason: Protocol Last Admin: 09/12/17 09:19 Dose: 5 mg Enoxaparin Sodium (Lovenox) 40 mg SC DAILY [facility]MUNDO PRN Reason: Protocol Last Admin: 09/12/17 09:17 Dose: 40 mg Lactated Ringer's (Lactated Ringer's) 1,000 mls @ 50 mls/hr IV .Q20H RAYMUNDO PRN Reason: Protocol Last Admin: 09/10/17 17:24 Dose: Not Given Insulin Human Lispro (Humalog Med) 0 units SC ACHS RAYMUNDO PRN Reason: Protocol Last Admin: 09/12/17 12:22 Dose: 3 units Magnesium Oxide (Mag-Ox) 400 mg PO DAILY [facility] PRN Reason: Protocol Last Admin: 09/12/17 09:19 Dose: 400 mg Multivitamins (Thera Tab) 1 tab PO DAILY [facility] Last Admin: 09/12/17 09:20 Dose: 1 tab Budesonide/Formoterol Fumarate [Symbicort 160-4.5 Mcg Inhaler] 2 2 puff IH BID [facility] Last Admin: 09/12/17 09:11 Dose: Not Given Ondansetron HCl (Zofran Inj) 4 mg IVP Q4H PRN; Protocol PRN Reason: Nausea/Vomiting Last Admin: 09/11/17 23:59 Dose: 4 mg Pantoprazole Sodium (Protonix Ec Tab) 40 mg PO 0600 [facility] PRN Reason: Protocol Last Admin: 09/12/17 05:33 Dose: 40 mg Quetiapine Fumarate (Seroquel) 200 mg PO 2000 [facility] PRN Reason: Protocol Last Admin: 09/11/17 20:47 Dose: 200 mg Tiotropium [place] (Spiriva) 18 mcg IH DAILY [facility] PRN Reason: Protocol Last Admin: 09/12/17 09:35 Dose: Not Given Tramadol HCl (Ultram) 50 mg PO TID PRN; Protocol PRN Reason: Pain, severe (8-10) Last Admin: 09/11/17 09:39 Dose: 50 mg Valsartan (Diovan) 320 mg PO QAM [facility] PRN Reason: Protocol Last Admin: 09/12/17 09:17 Dose: 320 mg - Labs Labs: 09/12/17 06:30 09/12/17 06:30 - Constitutional Appears: No Acute Distress - Head Exam Head Exam: NORMOCEPHALIC - Eye Exam Eye Exam: Normal appearance. absent: Scleral icterus - ENT Exam ENT Exam: Mucous Membranes Moist - Neck Exam Neck Exam: Normal Inspection - Respiratory Exam Respiratory Exam: NORMAL BREATHING PATTERN. absent: Respiratory Distress - Cardiovascular Exam Cardiovascular Exam: +S1, +S2 - GI/Abdominal Exam GI & Abdominal Exam: Soft, Tenderness (near incision, mild, incisision w/ stapeles DARRIN, no erythema or drainage. EWA drain w/clear yellowish drain.), Normal Bowel Sounds. absent: Guarding, Rebound - Extremities Exam Extremities Exam: Normal Capillary Refill. absent: Calf Tenderness - Neurological Exam Neurological Exam: Alert, Awake, Oriented x3 - Skin Skin Exam: Dry, Warm Assessment and Plan - Assessment and Plan (Free Text) Assessment: Assessment: Status post right hemicolectomy for cecal mass Appendectomy COPD HTN GERD Plan: Diet as tolerated, on mod carb Continued GI prophylaxis Continue DVT prophylaxis consider Cdiff if have loose continue loose BM surgical pathology pending surgical FU Seen and discussed w/ Dr. Goff. <Александр Azar V - Last Filed: 09/12/17 21:30> Objective - Vital Signs/Intake and Output Vital Signs (last 24 hours): Temp Pulse Resp BP Pulse Ox 98.7 F 97 H 18 126/68 90 L 09/12/17 10:00 09/12/17 10:00 09/12/17 10:00 09/12/17 10:00 09/12/17 10:00 Intake and Output: 09/12/17 09/13/17 18:59 06:59 Output Total 100 Balance -100 - Medications Medications: Current Medications Acetaminophen (Tylenol 325mg Tab) 650 mg PO Q6H PRN PRN Reason: Pain, Mild (1-3) Albuterol/Ipratropium (Duoneb 3 Mg/0.5 Mg (3 Ml) Ud) 3 ml IH Q4H PRN; Protocol PRN Reason: Shortness of Breath Albuterol/Ipratropium (Duoneb 3 Mg/0.5 Mg (3 Ml) Ud) 3 ml IH [id number] RAYMUNDO PRN Reason: Protocol Last Admin: 09/12/17 20:21 Dose: Not Given Alprazolam (Xanax) 1 mg PO TID PRN; Protocol PRN Reason: Anxiety Last Admin: 09/12/17 14:29 Dose: 1 mg Amlodipine Besylate (Norvasc) 5 mg PO DAILY RAYMUNDO PRN Reason: Protocol Last Admin: 09/12/17 09:19 Dose: 5 mg Enoxaparin Sodium (Lovenox) 40 mg SC DAILY RAYMUNDO PRN Reason: Protocol Last Admin: 09/12/17 09:17 Dose: 40 mg Lactated Ringer's (Lactated Ringer's) 1,000 mls @ 50 mls/hr IV .Q20H RAYMUNDO PRN Reason: Protocol Last Admin: 09/10/17 17:24 Dose: Not Given Insulin Human Lispro (Humalog Med) 0 units SC ACHS RAYMUNDO PRN Reason: Protocol Last Admin: 09/12/17 17:53 Dose: 1 units Magnesium Oxide (Mag-Ox) 400 mg PO DAILY [facility]UNDO PRN Reason: Protocol Last Admin: 09/12/17 09:19 Dose: 400 mg Multivitamins (Thera Tab) 1 tab PO DAILY [facility]UNDO Last Admin: 09/12/17 09:20 Dose: 1 tab Budesonide/Formoterol Fumarate [Symbicort 160-4.5 Mcg Inhaler] 2 2 puff IH BID [facility] Last Admin: 09/12/17 17:52 Dose: Not Given Ondansetron HCl (Zofran Inj) 4 mg IVP Q4H PRN; Protocol PRN Reason: Nausea/Vomiting Last Admin: 09/11/17 23:59 Dose: 4 mg Pantoprazole Sodium (Protonix Ec Tab) 40 mg PO 0600 [facility] PRN Reason: Protocol Last Admin: 09/12/17 05:33 Dose: 40 mg Quetiapine Fumarate (Seroquel) 200 mg PO 2000 [facility] PRN Reason: Protocol Last Admin: 09/12/17 20:52 Dose: 200 mg Tiotropium [place] (Spiriva) 18 mcg IH DAILY [facility] PRN Reason: Protocol Last Admin: 09/12/17 09:35 Dose: Not Given Tramadol HCl (Ultram) 50 mg PO TID PRN; Protocol PRN Reason: Pain, severe (8-10) Last Admin: 09/11/17 09:39 Dose: 50 mg Valsartan (Diovan) 320 mg PO QAM [facility] PRN Reason: Protocol Last Admin: 09/12/17 09:17 Dose: 320 mg - Labs Labs: 09/12/17 06:30 09/12/17 06:30 Attending/Attestation - Attestation I have personally seen and examined this patient.: Yes I have fully participated in the care of the patient.: Yes I have reviewed all pertinent clinical information, including history, physical exam and plan: Yes Notes (Text): This is an addendum to GI progress report dictated by Rhonda Jacobson APN.The patient was seen and examined earlier. Medical records, lab studies, imagings were reviewed. Last 24 hours events reviewed. Agreed with the above treatment plan as outlined in Rhonda Jacobson APN's notes the with the addition of the following On examination abdomen softly distended on solid food Had small brown bowel movements Pathology still pending Postoperative as per surgery 09/12/17 21:29 09/12/17 21:30
--- NOTE | 2017-09-12 18:22 | PN ---
DATE: SUBJECTIVE: Emmy Riggs is seen. 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 The notes are possibly involved, but it is unclear at the moment and there was in fact acute appendicitis. Presently, the vital signs are normal. She is doing well. Yusuf Anderson MD
[2017-09-13] MEDS: Albuterol-Ipratrop 3 mg / 0.5 (3 ml) UD IH SCH ×4 (01:43→19:59)
[2017-09-13] MEDS: Pantoprazole 40 mg EC Tab PO SCH (05:57)
[2017-09-13] MEDS: Insulin Lispro (humaLOG) MEDIUM Coverage SC SCH ×4 (06:49→21:40)
[2017-09-13 07:13] LABS: BASO # 0.03 K/mm3 (0.0-2.0); BASO % 0.3 % (0.0-3.0); EOS # 0.1 (0.0-0.7); EOS % 1.2 % (1.5-5.0); GRAN # 7.23 (1.4-6.5); GRAN % 78.2 % (50.0-68.0); LYMPH # 1.1 (1.2-3.4); LYMPH % 11.5 % (22.0-35.0); MEAN CELL VOLUME 85.2 fl (80.0-105.0); MEAN CORPUSCULAR HEMOGLOBIN 26.1 pg (25.0-35.0); MEAN CORPUSCULAR HGB CONC 30.7 g/dl (31.0-37.0); MEAN PLATELET VOLUME 8.5 fl (7.0-11.0); MONO # 0.8 (0.1-0.6); MONO % 8.8 % (1.0-6.0); RED CELL DISTRIBUTION WIDTH 15.2 % (11.5-14.5); WHITE BLOOD COUNT 9.2 10^3/ul (4.5-11.0)
[2017-09-13 07:52] LABS: ALB/GLOB RATIO 1.1 (1.1-1.8); ALKALINE PHOSPHATASE 66 U/L (38-126); ALT/SGPT 40 U/L (7-56); AST/SGOT 28 U/L (14-36); BILIRUBIN,TOTAL 0.5 mg/dL (0.2-1.3); BLOOD UREA NITROGEN 15 mg/dL (7-21); CALCIUM 9.3 mg/dL (8.4-10.5); CARBON DIOXIDE 34 mmol/L (21-33); CHLORIDE 97 mmol/L (98-107); GFR AFRICAN-AMERICAN > 60; GLUCOSE,RANDOM 150 mg/dL (70-110); PHOSPHOROUS 3.4 mg/dL (2.5-4.5); POTASSIUM 4.2 mmol/L (3.6-5.0); SODIUM 137 mmol/L (132-148); TOTAL PROTEIN 5.4 g/dL (5.8-8.3)
--- NOTE | 2017-09-13 09:14 | CP.PCM.PN ---
<Sesar White - Last Filed: 09/13/17 10:48> Subjective - Date & Time of Evaluation Date of Evaluation: 09/13/17 Time of Evaluation: 09:09 - Subjective Subjective: Patient seen and evaluated at bedside in TCU. Patient resting comfortably. No acute events reported overnight. Patient able to eat her morning meal with minimal nausea. Patient reports regular bm this AM. Patient reports abdominal discomfort secondary to surgery. She reports improvement over hospital stay. Patient denies chest pain, shortness of breath, fever, chills. Objective - Vital Signs/Intake and Output Vital Signs (last 24 hours): Temp Pulse Resp BP Pulse Ox 98.7 F 97 H 18 126/68 90 L 09/12/17 10:00 09/12/17 10:00 09/12/17 10:00 09/12/17 10:00 09/12/17 10:00 - Medications Medications: Current Medications Acetaminophen (Tylenol 325mg Tab) 650 mg PO Q6H PRN PRN Reason: Pain, Mild (1-3) Albuterol/Ipratropium (Duoneb 3 Mg/0.5 Mg (3 Ml) Ud) 3 ml IH Q4H PRN; Protocol PRN Reason: Shortness of Breath Albuterol/Ipratropium (Duoneb 3 Mg/0.5 Mg (3 Ml) Ud) 3 ml IH [id number] RAYMUNDO PRN Reason: Protocol Last Admin: 09/13/17 07:31 Dose: Not Given Alprazolam (Xanax) 1 mg PO TID PRN; Protocol PRN Reason: Anxiety Last Admin: 09/13/17 06:07 Dose: 1 mg Amlodipine Besylate (Norvasc) 5 mg PO DAILY RAYMUNDO PRN Reason: Protocol Last Admin: 09/12/17 09:19 Dose: 5 mg Enoxaparin Sodium (Lovenox) 40 mg SC DAILY RAYMUNDO PRN Reason: Protocol Last Admin: 09/12/17 09:17 Dose: 40 mg Lactated Ringer's (Lactated Ringer's) 1,000 mls @ 50 mls/hr IV .Q20H RAYMUNDO PRN Reason: Protocol Last Admin: 09/10/17 17:24 Dose: Not Given Insulin Human Lispro (Humalog Med) 0 units SC ACHS RAYMUNDO PRN Reason: Protocol Last Admin: 09/13/17 06:49 Dose: 1 units Magnesium Oxide (Mag-Ox) 400 mg PO DAILY [facility] PRN Reason: Protocol Last Admin: 09/12/17 09:19 Dose: 400 mg Multivitamins (Thera Tab) 1 tab PO DAILY [facility] Last Admin: 09/12/17 09:20 Dose: 1 tab Budesonide/Formoterol Fumarate [Symbicort 160-4.5 Mcg Inhaler] 2 2 puff IH BID [facility] Last Admin: 09/12/17 17:52 Dose: Not Given Ondansetron HCl (Zofran Inj) 4 mg IVP Q4H PRN; Protocol PRN Reason: Nausea/Vomiting Last Admin: 09/11/17 23:59 Dose: 4 mg Pantoprazole Sodium (Protonix Ec Tab) 40 mg PO 0600 [facility] PRN Reason: Protocol Last Admin: 09/13/17 05:57 Dose: 40 mg Quetiapine Fumarate (Seroquel) 200 mg PO 2000 [facility] PRN Reason: Protocol Last Admin: 09/12/17 20:52 Dose: 200 mg Tiotropium [place] (Spiriva) 18 mcg IH DAILY [facility] PRN Reason: Protocol Last Admin: 09/12/17 09:35 Dose: Not Given Tramadol HCl (Ultram) 50 mg PO TID PRN; Protocol PRN Reason: Pain, severe (8-10) Last Admin: 09/11/17 09:39 Dose: 50 mg Valsartan (Diovan) 320 mg PO QAM [facility] PRN Reason: Protocol Last Admin: 09/12/17 09:17 Dose: 320 mg - Labs Labs: 09/13/17 06:30 09/13/17 06:30 - Head Exam Head Exam: ATRAUMATIC, NORMAL INSPECTION, NORMOCEPHALIC - Eye Exam Eye Exam: EOMI, PERRL Pupil Exam: PERRL - ENT Exam ENT Exam: Mucous Membranes Dry - Neck Exam Neck Exam: Full ROM. absent: Lymphadenopathy - Respiratory Exam Respiratory Exam: Clear to Ausculation Bilateral, NORMAL BREATHING PATTERN - Cardiovascular Exam Cardiovascular Exam: REGULAR RHYTHM, +S1, +S2 - GI/Abdominal Exam GI & Abdominal Exam: Soft, Tenderness, Diminished Bowel Sounds. absent: Guarding, Rigid Additional comments: midline incision with michael in place, c/d/i, pierre drain with serous drainage - Extremities Exam Extremities Exam: Full ROM, Normal Capillary Refill. absent: Calf Tenderness, Tenderness - Back Exam Back Exam: NORMAL INSPECTION. absent: CVA tenderness (L), CVA tenderness (R) - Neurological Exam Neurological Exam: Alert, Awake, Oriented x3 - Psychiatric Exam Psychiatric exam: Normal Affect, Normal Mood - Skin Skin Exam: Dry, Intact, Warm. absent: Rash Assessment and Plan - Assessment and Plan (Free Text) Assessment: 72 year old female with past medical history that includes COPD, HTN, DM2, GERD , and anemia presented to [facility] ED complaining of abdominal pain, found to have acute appendicitis and mass of cecum measuring 4x5 cm with preliminary pathology report showing poorly differentiated adenocarcinoma of the colon. Pt is s/p right hemicolectomy admitted to TCU on 09/11/17 for further rehabilitation with PT for deconditioning. Plan: 1. Deconditioning - s/p hemicolectomy, appendectomy - Continue with PT - TCU for further monitoring and observation - PT eval promotes further PT for time being 2. Acute appendicitis - s/p hemicolectomy, appendectomy - CLD tolerated, will advance to soft today - Promote OOB to chair, incentive spirometry - CT abdomen PO and IV: Evidence of appendicitis with dilatation to 13 mm with appendiceal wall thickening and surrounding inflammation without abscess - Zofran prn, patient refusing at this time - Tramadol for severe pain 3. Cecal mass s/p right hemicolectomy - CT abd/pelvis showed acute appendicitis and large cecum mass 4x5 cm - General surgery consulted, following - GI consulted and following - Patient with history of colonoscopy demonstrating sigmoid and rectum polyps, biopsy done showing tubular adenoma - CEA level elevated - Pathology curbside report is poorly differentiated adenocarcinoma of colon, awaiting final report - Will consult heme/onc 4. DM2 - ISS - Accuchecks 5. HTN - Cont home medications - Continue to monitor 6. COPD - Duonebs prn GI ppx: Protonix DVT ppx: SCD, Lovenox Case and plan discussed with attending <Catrachito Reeves - Last Filed: 09/13/17 16:00> Objective - Vital Signs/Intake and Output Vital Signs (last 24 hours): Temp Pulse Resp BP Pulse Ox 98.7 F 101 H 18 115/49 L 94 L 09/13/17 10:00 09/13/17 10:00 09/13/17 10:00 09/13/17 10:06 09/13/17 10:00 - Medications Medications: Current Medications Acetaminophen (Tylenol 325mg Tab) 650 mg PO Q6H PRN PRN Reason: Pain, Mild (1-3) Albuterol/Ipratropium (Duoneb 3 Mg/0.5 Mg (3 Ml) Ud) 3 ml IH Q4H PRN; Protocol PRN Reason: Shortness of Breath Albuterol/Ipratropium (Duoneb 3 Mg/0.5 Mg (3 Ml) Ud) 3 ml IH [id number] RAYMUNDO PRN Reason: Protocol Last Admin: 09/13/17 13:25 Dose: 3 ml Alprazolam (Xanax) 1 mg PO TID PRN; Protocol PRN Reason: Anxiety Last Admin: 09/13/17 11:18 Dose: 1 mg Amlodipine Besylate (Norvasc) 5 mg PO DAILY [facility]UNDO PRN Reason: Protocol Last Admin: 09/13/17 10:06 Dose: Not Given Enoxaparin Sodium (Lovenox) 40 mg SC DAILY RAYMUNDO PRN Reason: Protocol Last Admin: 09/13/17 10:05 Dose: 40 mg Lactated Ringer's (Lactated Ringer's) 1,000 mls @ 50 mls/hr IV .Q20H RAYMUNDO PRN Reason: Protocol Last Admin: 09/10/17 17:24 Dose: Not Given Insulin Human Lispro (Humalog Med) 0 units SC ACHS RAYMUNDO PRN Reason: Protocol Last Admin: 09/13/17 11:59 Dose: 1 units Magnesium Oxide (Mag-Ox) 400 mg PO DAILY [facility] PRN Reason: Protocol Last Admin: 09/13/17 10:05 Dose: 400 mg Multivitamins (Thera Tab) 1 tab PO DAILY [facility] Last Admin: 09/13/17 10:07 Dose: 1 tab Budesonide/Formoterol Fumarate [Symbicort 160-4.5 Mcg Inhaler] 2 2 puff IH BID [facility] Last Admin: 09/13/17 10:01 Dose: Not Given Ondansetron HCl (Zofran Inj) 4 mg IVP Q4H PRN; Protocol PRN Reason: Nausea/Vomiting Last Admin: 09/13/17 10:09 Dose: 4 mg Pantoprazole Sodium (Protonix Ec Tab) 40 mg PO 0600 [facility] PRN Reason: Protocol Last Admin: 09/13/17 05:57 Dose: 40 mg Quetiapine Fumarate (Seroquel) 200 mg PO 2000 [facility] PRN Reason: Protocol Last Admin: 09/12/17 20:52 Dose: 200 mg Tiotropium [place] (Spiriva) 18 mcg IH DAILY [facility] PRN Reason: Protocol Last Admin: 09/13/17 10:07 Dose: 18 mcg Tramadol HCl (Ultram) 50 mg PO TID PRN; Protocol PRN Reason: Pain, severe (8-10) Last Admin: 09/11/17 09:39 Dose: 50 mg Valsartan (Diovan) 320 mg PO QAM [facility] PRN Reason: Protocol Last Admin: 09/13/17 10:05 Dose: 320 mg - Labs Labs: 09/13/17 06:30 09/13/17 06:30 Attending/Attestation - Attestation I have personally seen and examined this patient.: Yes I have fully participated in the care of the patient.: Yes I have reviewed all pertinent clinical information, including history, physical exam and plan: Yes Notes (Text): 09/13/17 15:55 Patient was seen and examined with regional medical director. Agreed with resident assessment and plan. 72 year old female with past medical history of COPD, hypertension, diabetes and anemia who presented with complaint of RLQ pain. CT abdomen and pelvis showed acute appendicitis and large cecum mass 4x5 cm. Patient is s/p right hemicolectomy Final Pathology results are pending..CEA is elevated.Preliminary results showed poorly differentiated adenocarcinoma We will follow up pathology report and will also get Oncology consultation. Patient nausea and vomiting has improved. Management plan was discussed in detail with patient Education was provided.
[2017-09-13] MEDS: BUDESONIDE IH SCH ×2 (10:01→17:17)
[2017-09-13] MEDS: FORMOTEROL FUMARATE IH SCH ×2 (10:01→17:17)
[2017-09-13] MEDS: Magnesium Oxide 400 mg Tab UD PO SCH (10:05)
[2017-09-13] MEDS: Enoxaparin 40 mg Syringe SC SCH (10:05)
[2017-09-13] MEDS: Tiotropium 18 mcg Cap For Inhalation IH SCH (10:07)
[2017-09-13] MEDS: Multivitamin Therapeutic Tab PO SCH (10:07)
--- NOTE | 2017-09-13 15:29 | CP.PCM.PN ---
<Rhonda Jacobson - Last Filed: 09/13/17 15:28> Subjective - Date & Time of Evaluation Date of Evaluation: 09/13/17 Time of Evaluation: 09:50 - Subjective Subjective: S&E at bedside and chart reviewed, patient abdomen less distended, and good BM with relief, feel better, no reports of overt GI bleeding. Objective - Vital Signs/Intake and Output Vital Signs (last 24 hours): Temp Pulse Resp BP Pulse Ox 98.7 F 101 H 18 115/49 L 94 L 09/13/17 10:00 09/13/17 10:00 09/13/17 10:00 09/13/17 10:06 09/13/17 10:00 - Medications Medications: Current Medications Acetaminophen (Tylenol 325mg Tab) 650 mg PO Q6H PRN PRN Reason: Pain, Mild (1-3) Albuterol/Ipratropium (Duoneb 3 Mg/0.5 Mg (3 Ml) Ud) 3 ml IH Q4H PRN; Protocol PRN Reason: Shortness of Breath Albuterol/Ipratropium (Duoneb 3 Mg/0.5 Mg (3 Ml) Ud) 3 ml IH [id number] RAYMUNDO PRN Reason: Protocol Last Admin: 09/13/17 13:25 Dose: 3 ml Alprazolam (Xanax) 1 mg PO TID PRN; Protocol PRN Reason: Anxiety Last Admin: 09/13/17 11:18 Dose: 1 mg Amlodipine Besylate (Norvasc) 5 mg PO DAILY [facility]UNDO PRN Reason: Protocol Last Admin: 09/13/17 10:06 Dose: Not Given Enoxaparin Sodium (Lovenox) 40 mg SC DAILY [facility]MUNDO PRN Reason: Protocol Last Admin: 09/13/17 10:05 Dose: 40 mg Lactated Ringer's (Lactated Ringer's) 1,000 mls @ 50 mls/hr IV .Q20H [facility]UNDO PRN Reason: Protocol Last Admin: 09/10/17 17:24 Dose: Not Given Insulin Human Lispro (Humalog Med) 0 units SC ACHS R[facility]MUNDO PRN Reason: Protocol Last Admin: 09/13/17 11:59 Dose: 1 units Magnesium Oxide (Mag-Ox) 400 mg PO DAILY R[facility]MUNDO PRN Reason: Protocol Last Admin: 09/13/17 10:05 Dose: 400 mg Multivitamins (Thera Tab) 1 tab PO DAILY [facility] Last Admin: 09/13/17 10:07 Dose: 1 tab Budesonide/Formoterol Fumarate [Symbicort 160-4.5 Mcg Inhaler] 2 2 puff IH BID [facility] Last Admin: 09/13/17 10:01 Dose: Not Given Ondansetron HCl (Zofran Inj) 4 mg IVP Q4H PRN; Protocol PRN Reason: Nausea/Vomiting Last Admin: 09/13/17 10:09 Dose: 4 mg Pantoprazole Sodium (Protonix Ec Tab) 40 mg PO 0600 [facility] PRN Reason: Protocol Last Admin: 09/13/17 05:57 Dose: 40 mg Quetiapine Fumarate (Seroquel) 200 mg PO 2000 [facility] PRN Reason: Protocol Last Admin: 09/12/17 20:52 Dose: 200 mg Tiotropium [place] (Spiriva) 18 mcg IH DAILY [facility] PRN Reason: Protocol Last Admin: 09/13/17 10:07 Dose: 18 mcg Tramadol HCl (Ultram) 50 mg PO TID PRN; Protocol PRN Reason: Pain, severe (8-10) Last Admin: 09/11/17 09:39 Dose: 50 mg Valsartan (Diovan) 320 mg PO QAM [facility] PRN Reason: Protocol Last Admin: 09/13/17 10:05 Dose: 320 mg - Labs Labs: 09/13/17 06:30 09/13/17 06:30 - Constitutional Appears: No Acute Distress - Head Exam Head Exam: NORMOCEPHALIC - Eye Exam Eye Exam: Normal appearance. absent: Scleral icterus - ENT Exam ENT Exam: Mucous Membranes Moist - Respiratory Exam Respiratory Exam: NORMAL BREATHING PATTERN. absent: Respiratory Distress - Cardiovascular Exam Cardiovascular Exam: +S1, +S2 - GI/Abdominal Exam GI & Abdominal Exam: Soft, Normal Bowel Sounds. absent: Distended, Guarding, Tenderness, Rebound - Extremities Exam Extremities Exam: Normal Capillary Refill. absent: Pedal Edema - Neurological Exam Neurological Exam: Alert, Awake, Oriented x3 - Skin Skin Exam: Dry, Warm Assessment and Plan - Assessment and Plan (Free Text) Assessment: Assessment: Status post right hemicolectomy for cecal mass Appendectomy COPD HTN GERD Plan: Diet as tolerated, on mod carb Continued GI prophylaxis Continue DVT prophylaxis surgical pathology pending surgical FU Seen and discussed w/ Dr. Goff. <Александр Azar V - Last Filed: 09/13/17 23:11> Objective - Vital Signs/Intake and Output Vital Signs (last 24 hours): Temp Pulse Resp BP Pulse Ox 99.1 F 94 H 18 107/49 L 97 09/13/17 17:34 09/13/17 17:34 09/13/17 17:34 09/13/17 17:34 09/13/17 17:34 - Medications Medications: Current Medications Acetaminophen (Tylenol 325mg Tab) 650 mg PO Q6H PRN PRN Reason: Pain, Mild (1-3) Albuterol/Ipratropium (Duoneb 3 Mg/0.5 Mg (3 Ml) Ud) 3 ml IH Q4H PRN; Protocol PRN Reason: Shortness of Breath Albuterol/Ipratropium (Duoneb 3 Mg/0.5 Mg (3 Ml) Ud) 3 ml IH [id number] RAYMUNDO PRN Reason: Protocol Last Admin: 09/13/17 19:59 Dose: Not Given Alprazolam (Xanax) 1 mg PO TID PRN; Protocol PRN Reason: Anxiety Last Admin: 09/13/17 17:47 Dose: 1 mg Amlodipine Besylate (Norvasc) 5 mg PO DAILY RAYMUNDO PRN Reason: Protocol Last Admin: 09/13/17 10:06 Dose: Not Given Enoxaparin Sodium (Lovenox) 40 mg SC DAILY RAYMUNDO PRN Reason: Protocol Last Admin: 09/13/17 10:05 Dose: 40 mg Lactated Ringer's (Lactated Ringer's) 1,000 mls @ 50 mls/hr IV .Q20H RAYMUNDO PRN Reason: Protocol Last Admin: 09/10/17 17:24 Dose: Not Given Insulin Human Lispro (Humalog Med) 0 units SC ACHS RAYMUNDO PRN Reason: Protocol Last Admin: 09/13/17 21:40 Dose: Not Given Magnesium Oxide (Mag-Ox) 400 mg PO DAILY RAYMUNDO PRN Reason: Protocol Last Admin: 09/13/17 10:05 Dose: 400 mg Multivitamins (Thera Tab) 1 tab PO DAILY RAYMUNDO Last Admin: 09/13/17 10:07 Dose: 1 tab Budesonide/Formoterol Fumarate [Symbicort 160-4.5 Mcg Inhaler] 2 2 puff IH BID [facility] Last Admin: 09/13/17 17:17 Dose: Not Given Ondansetron HCl (Zofran Inj) 4 mg IVP Q4H PRN; Protocol PRN Reason: Nausea/Vomiting Last Admin: 09/13/17 10:09 Dose: 4 mg Pantoprazole Sodium (Protonix Ec Tab) 40 mg PO 0600 [facility] PRN Reason: Protocol Last Admin: 09/13/17 05:57 Dose: 40 mg Quetiapine Fumarate (Seroquel) 200 mg PO 2000 [facility] PRN Reason: Protocol Last Admin: 09/13/17 20:28 Dose: 200 mg Tiotropium [place] (Spiriva) 18 mcg IH DAILY [facility]MUNDO PRN Reason: Protocol Last Admin: 09/13/17 10:07 Dose: 18 mcg Tramadol HCl (Ultram) 50 mg PO TID PRN; Protocol PRN Reason: Pain, severe (8-10) Last Admin: 09/11/17 09:39 Dose: 50 mg Valsartan (Diovan) 320 mg PO QAM [facility]UNDO PRN Reason: Protocol Last Admin: 09/13/17 10:05 Dose: 320 mg - Labs Labs: 09/13/17 06:30 09/13/17 06:30 Attending/Attestation - Attestation I have personally seen and examined this patient.: Yes I have fully participated in the care of the patient.: Yes I have reviewed all pertinent clinical information, including history, physical exam and plan: Yes Notes (Text): this patient was seen in evaluated earlier. This is an addendum to the GI progress report dictated by Rhonda Jacobson APN. Patient was feeling much better . Patient did have large bowel movements after that her symptoms improved Follow up with the pathology 09/13/17 23:10
--- NOTE | 2017-09-13 16:58 | CP.PCM.PN ---
Subjective - Date & Time of Evaluation Date of Evaluation: 09/13/17 Time of Evaluation: 12:15 - Subjective Subjective: PGY1 General Surgery Note for Dr. Anderson Patient seen and examined this morning at bedside. Patient was visibly upset upon walking into the room. "They came in and told me I have cancer." Patient is upset in the manner of how the information was given to her. She was crying saying she wish she did not know. Patient has a lot of concerns and wants to know more information about her condition. Patient was informed that all of her pathology has not returned and her course is not known yet. Patient requests that her niece be included in all talks from here on because she says she wants someone else to hear what is going on with her health. Patient says she has been feeling fine and had no complaints until she was informed of having cancer. She is really worried about how she is going to live her life after leaving the hospital. Objective - Vital Signs/Intake and Output Vital Signs (last 24 hours): Temp Pulse Resp BP Pulse Ox 98.7 F 101 H 18 115/49 L 94 L 09/13/17 10:00 09/13/17 10:00 09/13/17 10:00 09/13/17 10:06 09/13/17 10:00 - Medications Medications: Current Medications Acetaminophen (Tylenol 325mg Tab) 650 mg PO Q6H PRN PRN Reason: Pain, Mild (1-3) Albuterol/Ipratropium (Duoneb 3 Mg/0.5 Mg (3 Ml) Ud) 3 ml IH Q4H PRN; Protocol PRN Reason: Shortness of Breath Albuterol/Ipratropium (Duoneb 3 Mg/0.5 Mg (3 Ml) Ud) 3 ml IH [id number] RAYMUNDO PRN Reason: Protocol Last Admin: 09/13/17 13:25 Dose: 3 ml Alprazolam (Xanax) 1 mg PO TID PRN; Protocol PRN Reason: Anxiety Last Admin: 09/13/17 11:18 Dose: 1 mg Amlodipine Besylate (Norvasc) 5 mg PO DAILY RAYMUNDO PRN Reason: Protocol Last Admin: 09/13/17 10:06 Dose: Not Given Enoxaparin Sodium (Lovenox) 40 mg SC DAILY RAYMUNDO PRN Reason: Protocol Last Admin: 09/13/17 10:05 Dose: 40 mg Lactated Ringer's (Lactated Ringer's) 1,000 mls @ 50 mls/hr IV .Q20H [facility] PRN Reason: Protocol Last Admin: 09/10/17 17:24 Dose: Not Given Insulin Human Lispro (Humalog Med) 0 units SC ACHS RAYMUNDO PRN Reason: Protocol Last Admin: 09/13/17 11:59 Dose: 1 units Magnesium Oxide (Mag-Ox) 400 mg PO DAILY RAYMUNDO PRN Reason: Protocol Last Admin: 09/13/17 10:05 Dose: 400 mg Multivitamins (Thera Tab) 1 tab PO DAILY [facility] Last Admin: 09/13/17 10:07 Dose: 1 tab Budesonide/Formoterol Fumarate [Symbicort 160-4.5 Mcg Inhaler] 2 2 puff IH BID [facility] Last Admin: 09/13/17 10:01 Dose: Not Given Ondansetron HCl (Zofran Inj) 4 mg IVP Q4H PRN; Protocol PRN Reason: Nausea/Vomiting Last Admin: 09/13/17 10:09 Dose: 4 mg Pantoprazole Sodium (Protonix Ec Tab) 40 mg PO 0600 [facility] PRN Reason: Protocol Last Admin: 09/13/17 05:57 Dose: 40 mg Quetiapine Fumarate (Seroquel) 200 mg PO 2000 [facility] PRN Reason: Protocol Last Admin: 09/12/17 20:52 Dose: 200 mg Tiotropium [place] (Spiriva) 18 mcg IH DAILY [facility] PRN Reason: Protocol Last Admin: 09/13/17 10:07 Dose: 18 mcg Tramadol HCl (Ultram) 50 mg PO TID PRN; Protocol PRN Reason: Pain, severe (8-10) Last Admin: 09/11/17 09:39 Dose: 50 mg Valsartan (Diovan) 320 mg PO QAM [facility] PRN Reason: Protocol Last Admin: 09/13/17 10:05 Dose: 320 mg - Labs Labs: 09/13/17 06:30 09/13/17 06:30 - Constitutional Appears: Non-toxic, No Acute Distress, Other (crying, upset) - Eye Exam Eye Exam: EOMI, Normal appearance. absent: Scleral icterus - ENT Exam ENT Exam: Mucous Membranes Moist - Respiratory Exam Respiratory Exam: NORMAL BREATHING PATTERN. absent: Accessory Muscle Use, Respiratory Distress - GI/Abdominal Exam GI & Abdominal Exam: Soft. absent: Distended, Firm, Guarding, Rigid, Tenderness Additional comments: surgical incision healing appropriately. - Extremities Exam Extremities Exam: absent: Calf Tenderness, Pedal Edema - Neurological Exam Neurological Exam: Alert, Awake - Psychiatric Exam Psychiatric exam: Depressed (upset/crying "I can't believe I have cancer.") - Skin Skin Exam: Dry, Warm Assessment and Plan - Assessment and Plan (Free Text) Assessment: 72F s/p R hemicolectomy for appendicitis and cecal mass; POD#6 Plan: - cont PT - monitor pierre output (100mL over past 24 hours of serosanguinous fluid); will consider taking out before DC once ouput slows down - f/u pathology Case discussed with Dr. Justin Xavier Sheridan PGY1
[2017-09-14] MEDS: Albuterol-Ipratrop 3 mg / 0.5 (3 ml) UD IH SCH ×4 (01:23→20:19)
[2017-09-14] MEDS: Pantoprazole 40 mg EC Tab PO SCH (05:41)
[2017-09-14] MEDS: Insulin Lispro (humaLOG) MEDIUM Coverage SC SCH ×3 (06:41→17:30)
[2017-09-14 06:53] LABS: ALKALINE PHOSPHATASE 53 U/L (38-126); ALT/SGPT 43 U/L (7-56); AST/SGOT 30 U/L (14-36); BILIRUBIN,TOTAL 0.4 mg/dL (0.2-1.3); BLOOD UREA NITROGEN 14 mg/dL (7-21); CALCIUM 8.4 mg/dL (8.4-10.5); CARBON DIOXIDE 32 mmol/L (21-33); CHLORIDE 101 mmol/L (98-107); GFR AFRICAN-AMERICAN > 60; GLUCOSE,RANDOM 106 mg/dL (70-110); MAGNESIUM 2.1 mg/dL (1.7-2.2); POTASSIUM 4.2 mmol/L (3.6-5.0); SODIUM 135 mmol/L (132-148); TOTAL PROTEIN 5.1 g/dL (5.8-8.3)
[2017-09-14 06:54] LABS: BASO # 0.03 K/mm3 (0.0-2.0); BASO % 0.4 % (0.0-3.0); EOS # 0.2 (0.0-0.7); EOS % 2.2 % (1.5-5.0); GRAN # 5.28 (1.4-6.5); GRAN % 69.3 % (50.0-68.0); HEMATOCRIT 28.2 % (36.0-48.0); LYMPH # 1.5 (1.2-3.4); MEAN CELL VOLUME 85.7 fl (80.0-105.0); MEAN CORPUSCULAR HEMOGLOBIN 26.4 pg (25.0-35.0); MEAN CORPUSCULAR HGB CONC 30.9 g/dl (31.0-37.0); MEAN PLATELET VOLUME 8.2 fl (7.0-11.0); MONO # 0.7 (0.1-0.6); MONO % 9.1 % (1.0-6.0); RED CELL DISTRIBUTION WIDTH 15.5 % (11.5-14.5); WHITE BLOOD COUNT 7.6 10^3/ul (4.5-11.0)
[2017-09-14 06:55] LABS: ALB/GLOB RATIO 1.1 (1.1-1.8)
--- NOTE | 2017-09-14 09:17 | CP.PCM.CON ---
History of Present Illness - History of Present Illness History of Present Illness: Heme/Onc Consult Note for Dontae Dwyer PGY2 Reason for consult: Colon cancer This is a 72yo female with past medical history of COPD, HTN, DM, GERD, osteoarthritis, anemia who came to [facility] for lower abdominal pain, fatigue and unintentional 20lb weight loss. She had a CT done which showed appendicitis with a cecal mass. She was evaluated by surgery and had a R hemicolectomy and appendectomy on 09/07/17 without complications. The cecal mass was very large and is suspicious for malignancy. Pathology is still pending. Patient had a colonoscopy in [address] Ang which did not show any acute abnormalities at the time. Patient was also evaluated by GI as well. She was then transferred to TCU for further rehabilitation. Patient reports feeling well today. She has been having loose bowel movements and her appetite has improved. She reports she has abdominal pain only with certain movements, but denies chest pain, shortness of breath, fever/chills, dysuria, hematuria, nausea , vomiting, numbness or tingling. Past medical history: COPD, HTN, DM, GERD, osteoarthritis, anemia Past surgical history: cataract, bilateral knee replacements Home meds: As per DEC Allergies: Levaquin Social history: Former smoker (quit 30yrs ago), denies EtOH or drug use. Patient is functional on own, lives by herself and takes care of herself and drives. PMD: Dr. Johnson Review of Systems - Review of Systems All systems: reviewed and no additional remarkable complaints except Review of Systems: + abdominal pain Past Patient History - Infectious Disease Hx of Infectious Diseases: None - Tetanus Immunizations Tetanus Immunization: Unknown - Past Social History Smoking Status: Former Smoker Alcohol: None Drugs: Denies Home Situation {Lives}: Alone - CARDIAC Hx Cardiac Disorders: Yes Hx Hypertension: Yes - PULMONARY Hx Chronic Obstructive Pulmonary Disease (COPD): Yes (no Home O2) - NEUROLOGICAL Hx Paralysis: No - HEENT Hx Cataracts: Yes (removal b/l) - RENAL Hx Chronic Kidney Disease: No - ENDOCRINE/METABOLIC Hx Diabetes Mellitus Type 2: Yes - HEMATOLOGICAL/ONCOLOGICAL Hx Blood Disorders: Yes Hx Anemia: Yes (blood transfusion and iron replacement) - INTEGUMENTARY Hx Dermatological Problems: No - MUSCULOSKELETAL/RHEUMATOLOGICAL Hx Arthritis: Yes (OA) - GASTROINTESTINAL Hx Gastrointestinal Disorders: Yes (gastritis, gas,) Hx Diverticulitis: Yes Hx Gastroesophageal Reflux: Yes Other/Comment: "can't eat a lot of things" pt stated, has been alternating from normal bm's to diarrhea, for about 6 months - GENITOURINARY/GYNECOLOGICAL Hx Genitourinary Disorders: Yes Hx Urinary Tract Infection: Yes (dx 3 days ago on amoxicillin x2 days) Other/Comment: bladder sling procedure, dropped and became "heavy"c/o feels like she has to urinate and can't - PSYCHIATRIC Hx Depression: Yes Hx Emotional Abuse: No Hx Physical Abuse: No - SURGICAL HISTORY Hx Surgeries: Yes - ANESTHESIA Hx Anesthesia Reactions: No Hx Malignant Hyperthermia: No Meds Allergies/Adverse Reactions: Allergies Allergy/AdvReac Type Severity Reaction Status Date / Time levofloxacin [From Levaquin] Allergy Severe PAIN Verified 09/11/17 22:58 - Medications Medications: Current Medications Acetaminophen (Tylenol 325mg Tab) 650 mg PO Q6H PRN PRN Reason: Pain, Mild (1-3) Albuterol/Ipratropium (Duoneb 3 Mg/0.5 Mg (3 Ml) Ud) 3 ml IH Q4H PRN; Protocol PRN Reason: Shortness of Breath Albuterol/Ipratropium (Duoneb 3 Mg/0.5 Mg (3 Ml) Ud) 3 ml IH [id number] RAYMUNDO PRN Reason: Protocol Last Admin: 09/14/17 07:27 Dose: Not Given Alprazolam (Xanax) 1 mg PO TID PRN; Protocol PRN Reason: Anxiety Last Admin: 09/14/17 04:13 Dose: 1 mg Amlodipine Besylate (Norvasc) 5 mg PO DAILY RAYMUNDO PRN Reason: Protocol Last Admin: 09/13/17 10:06 Dose: Not Given Enoxaparin Sodium (Lovenox) 40 mg SC DAILY RAYMUNDO PRN Reason: Protocol Last Admin: 09/13/17 10:05 Dose: 40 mg Lactated Ringer's (Lactated Ringer's) 1,000 mls @ 50 mls/hr IV .Q20H RAYMUNDO PRN Reason: Protocol Last Admin: 09/10/17 17:24 Dose: Not Given Insulin Human Lispro (Humalog Med) 0 units SC ACHS RAYMUNDO PRN Reason: Protocol Last Admin: 09/14/17 06:41 Dose: Not Given Magnesium Oxide (Mag-Ox) 400 mg PO DAILY [facility] PRN Reason: Protocol Last Admin: 09/13/17 10:05 Dose: 400 mg Multivitamins (Thera Tab) 1 tab PO DAILY [facility] Last Admin: 09/13/17 10:07 Dose: 1 tab Budesonide/Formoterol Fumarate [Symbicort 160-4.5 Mcg Inhaler] 2 2 puff IH BID [facility] Last Admin: 09/13/17 17:17 Dose: Not Given Ondansetron HCl (Zofran Inj) 4 mg IVP Q4H PRN; Protocol PRN Reason: Nausea/Vomiting Last Admin: 09/13/17 10:09 Dose: 4 mg Pantoprazole Sodium (Protonix Ec Tab) 40 mg PO 0600 [facility] PRN Reason: Protocol Last Admin: 09/14/17 05:41 Dose: 40 mg Quetiapine Fumarate (Seroquel) 200 mg PO 2000 [facility] PRN Reason: Protocol Last Admin: 09/13/17 20:28 Dose: 200 mg Tiotropium [place] (Spiriva) 18 mcg IH DAILY [facility] PRN Reason: Protocol Last Admin: 09/13/17 10:07 Dose: 18 mcg Tramadol HCl (Ultram) 50 mg PO TID PRN; Protocol PRN Reason: Pain, severe (8-10) Last Admin: 09/11/17 09:39 Dose: 50 mg Valsartan (Diovan) 320 mg PO QAM [facility] PRN Reason: Protocol Last Admin: 09/13/17 10:05 Dose: 320 mg Physical Exam - Constitutional Appears: No Acute Distress - Head Exam Head Exam: ATRAUMATIC, NORMAL INSPECTION, NORMOCEPHALIC - Eye Exam Eye Exam: Normal appearance, PERRL Pupil Exam: NORMAL ACCOMODATION, PERRL - ENT Exam ENT Exam: Mucous Membranes Moist - Neck Exam Neck exam: Positive for: Normal Inspection - Respiratory Exam Respiratory Exam: Clear to Auscultation Bilateral, NORMAL BREATHING PATTERN. absent: Rales, Rhonchi, Wheezes - Cardiovascular Exam Cardiovascular Exam: REGULAR RHYTHM, +S1, +S2. absent: Gallop, Rubs, Systolic Murmur - GI/Abdominal Exam GI & Abdominal Exam: Normal Bowel Sounds, Soft, Tenderness (mild tenderness at surgical site ) Additional comments: midline surgical scar with michael in place- mild erythema no drainage - R EWA drain with minimal serosanginous drainage. - Extremities Exam Extremities exam: Positive for: normal inspection. Negative for: calf tenderness, pedal edema - Neurological Exam Neurological exam: Alert, CN II-XII Intact, Oriented x3 - Psychiatric Exam Psychiatric exam: Normal Affect, Normal Mood - Skin Skin Exam: Dry, Warm Results - Vital Signs Recent Vital Signs: Last Vital Signs Temp 99.1 F 09/13/17 17:34 Pulse 94 H 09/13/17 17:34 Resp 18 09/13/17 17:34 BP 107/49 L 09/13/17 17:34 Pulse Ox 97 09/13/17 17:34 - Labs Result Diagrams: 09/14/17 06:30 09/14/17 06:30 Labs: Laboratory Results - last 24 hr 09/13/17 09/14/17 09/14/17 16:21 06:30 06:30 WBC 7.6 RBC 3.29 L Hgb 8.7 L Hct 28.2 L MCV 85.7 MCH 26.4 MCHC 30.9 L RDW 15.5 H Plt Count 389 MPV 8.2 Gran % 69.3 H Lymph % (Auto) 19.0 L [place] % (Auto) 9.1 H Eos % (Auto) 2.2 Baso % (Auto) 0.4 Gran # 5.28 Lymph # 1.5 [place] # 0.7 H Eos # 0.2 Baso # 0.03 Sodium 135 Potassium 4.2 Chloride 101 Carbon Dioxide 32 Anion Gap 7 L BUN 14 Creatinine 0.8 Est GFR ( Amer) > 60 Est GFR (Non-Af Amer) > 60 POC Glucose (mg/dL) 164 H Random Glucose 106 Calcium 8.4 Phosphorus 3.0 Magnesium 2.1 Total Bilirubin 0.4 AST 30 ALT 43 Alkaline Phosphatase 53 Total Protein 5.1 L Albumin 2.6 L Globulin 2.4 Albumin/Globulin Ratio 1.1 Assessment & Plan - Assessment and Plan (Free Text) Assessment: This is a 72yo female with past medical history of COPD, HTN, DM, GERD, osteoarthritis, anemia who came to [facility] for lower abdominal pain, fatigue and unintentional 20lb weight loss. She was found to have cecal mass and appendicitis. She is POD # 7 s/p R hemicolectomy and appendectomy. Plan: - Await final pathology results - Patient may need outpatient PET scan - Will follow up with patient - No acute work up needed in the hospital - Recommend following up with Dr. Busch upon d/c Case seen, reviewed and discussed with Dr. Busch. Dontae Cummins PGY2 - Date & Time Date: 09/14/17 Time: 09:21
[2017-09-14] MEDS: FORMOTEROL FUMARATE IH SCH (10:31)
[2017-09-14] MEDS: BUDESONIDE IH SCH (10:31)
[2017-09-14] MEDS: Enoxaparin 40 mg Syringe SC SCH (10:32)
[2017-09-14] MEDS: Magnesium Oxide 400 mg Tab UD PO SCH (10:33)
[2017-09-14] MEDS: Multivitamin Therapeutic Tab PO SCH (10:34)
[2017-09-14] MEDS: Tiotropium 18 mcg Cap For Inhalation IH SCH (10:34)
--- NOTE | 2017-09-14 12:18 | CP.PCM.PN ---
Subjective - Date & Time of Evaluation Date of Evaluation: 09/14/17 Time of Evaluation: 12:07 - Subjective Subjective: PGY1 General Surgery Progress Note for Dr. Anderson Patient seen and examined at bedside this morning. No acute events overnight. Patient is feeling better about her diagnosis. In the afternoon, the patient requested that she be removed from the hospitalist service and asked if Dr. Anderson could take over as her primary physician during the rest of her hospital stay. Patient states that she spoke with Dr. Busch about her colonic mass. She stated that their plan was to wait on the pathology results and then will decide where to go from there. She says that physically she is doing ok. She has had 2-3 loose BMs daily the past couple of days. She is tolerating a regular diet. Denies any fevers, chills, nausea and/or vomiting. Objective - Vital Signs/Intake and Output Vital Signs (last 24 hours): Temp Pulse Resp BP Pulse Ox 98.1 F 87 18 124/56 L 96 09/14/17 09:55 09/14/17 10:33 09/14/17 09:55 09/14/17 10:33 09/14/17 09:55 Intake and Output: 09/14/17 09/14/17 06:59 18:59 Output Total 115 Balance -115 - Medications Medications: Current Medications Acetaminophen (Tylenol 325mg Tab) 650 mg PO Q6H PRN PRN Reason: Pain, Mild (1-3) Albuterol/Ipratropium (Duoneb 3 Mg/0.5 Mg (3 Ml) Ud) 3 ml IH Q4H PRN; Protocol PRN Reason: Shortness of Breath Albuterol/Ipratropium (Duoneb 3 Mg/0.5 Mg (3 Ml) Ud) 3 ml IH [id number] RAYMUNDO PRN Reason: Protocol Last Admin: 09/14/17 07:27 Dose: Not Given Alprazolam (Xanax) 1 mg PO TID PRN; Protocol PRN Reason: Anxiety Last Admin: 09/14/17 10:36 Dose: 1 mg Amlodipine Besylate (Norvasc) 5 mg PO DAILY [facility] PRN Reason: Protocol Last Admin: 09/14/17 10:33 Dose: Not Given Enoxaparin Sodium (Lovenox) 40 mg SC DAILY [facility] PRN Reason: Protocol Last Admin: 09/14/17 10:32 Dose: 40 mg Lactated Ringer's (Lactated Ringer's) 1,000 mls @ 50 mls/hr IV .Q20H [facility] PRN Reason: Protocol Last Admin: 09/10/17 17:24 Dose: Not Given Insulin Human Lispro (Humalog Med) 0 units SC ACHS [facility] PRN Reason: Protocol Last Admin: 09/14/17 06:41 Dose: Not Given Magnesium Oxide (Mag-Ox) 400 mg PO DAILY [facility] PRN Reason: Protocol Last Admin: 09/14/17 10:33 Dose: 400 mg Multivitamins (Thera Tab) 1 tab PO DAILY [facility] Last Admin: 09/14/17 10:34 Dose: 1 tab Budesonide/Formoterol Fumarate [Symbicort 160-4.5 Mcg Inhaler] 2 2 puff IH BID [facility] Last Admin: 09/14/17 10:31 Dose: Not Given Ondansetron HCl (Zofran Inj) 4 mg IVP Q4H PRN; Protocol PRN Reason: Nausea/Vomiting Last Admin: 09/13/17 10:09 Dose: 4 mg Pantoprazole Sodium (Protonix Ec Tab) 40 mg PO 0600 [facility] PRN Reason: Protocol Last Admin: 09/14/17 05:41 Dose: 40 mg Quetiapine Fumarate (Seroquel) 200 mg PO 2000 [facility] PRN Reason: Protocol Last Admin: 09/13/17 20:28 Dose: 200 mg Tiotropium [place] (Spiriva) 18 mcg IH DAILY [facility] PRN Reason: Protocol Last Admin: 09/14/17 10:34 Dose: Not Given Tramadol HCl (Ultram) 50 mg PO TID PRN; Protocol PRN Reason: Pain, severe (8-10) Last Admin: 09/11/17 09:39 Dose: 50 mg Valsartan (Diovan) 320 mg PO QAM [facility] PRN Reason: Protocol Last Admin: 09/14/17 10:32 Dose: 320 mg - Labs Labs: 09/14/17 06:30 09/14/17 06:30 - Constitutional Appears: Non-toxic, No Acute Distress - Head Exam Head Exam: ATRAUMATIC, NORMOCEPHALIC - Eye Exam Eye Exam: EOMI, Normal appearance. absent: Scleral icterus - ENT Exam ENT Exam: Mucous Membranes Moist - Respiratory Exam Respiratory Exam: NORMAL BREATHING PATTERN. absent: Accessory Muscle Use, Respiratory Distress - GI/Abdominal Exam GI & Abdominal Exam: Distended (improving - mild), Soft. absent: Firm, Guarding , Rigid, Tenderness Additional comments: midline incision with michael in place; C/D/I. surgical incision healing appropriately, no erythema or signs of infection. Vicente drain with minimal serous output. - Extremities Exam Extremities Exam: absent: Calf Tenderness, Pedal Edema - Neurological Exam Neurological Exam: Alert, Awake, Oriented x3 - Psychiatric Exam Psychiatric exam: Normal Affect, Normal Mood - Skin Skin Exam: Dry, Warm Assessment and Plan - Assessment and Plan (Free Text) Assessment: 72 year old female s/p R hemicolectomy for appendicitis and cecal mass; POD#7 Plan: Dr. Anderson's service will be taking over as the primary care team for this patient. Heme/Onc consulted, Dr. Busch - will await results of pathology before moving forward. Vicente drain removed Half of the michael removed f/u pathology Continue PT, encourage OOB/ambulation Continue anticoagulation Case discussed with Dr. Justin Xavier Sheridan PGY1
[2017-09-15] MEDS: Insulin Lispro (humaLOG) MEDIUM Coverage SC SCH ×5 (00:03→21:50)
[2017-09-15] MEDS: Albuterol-Ipratrop 3 mg / 0.5 (3 ml) UD IH SCH ×4 (02:16→20:10)
[2017-09-15] MEDS: Enoxaparin 40 mg Syringe SC SCH (05:30)
[2017-09-15] MEDS: Pantoprazole 40 mg EC Tab PO SCH (05:30)
[2017-09-15 08:10] LABS: MAGNESIUM 2.1 mg/dL (1.7-2.2); PHOSPHOROUS 2.9 mg/dL (2.5-4.5)
[2017-09-15] MEDS: FORMOTEROL FUMARATE IH SCH (10:13)
[2017-09-15] MEDS: BUDESONIDE IH SCH (10:13)
[2017-09-15] MEDS: Magnesium Oxide 400 mg Tab UD PO SCH (10:15)
[2017-09-15] MEDS: Multivitamin Therapeutic Tab PO SCH (10:16)
[2017-09-15] MEDS: Tiotropium 18 mcg Cap For Inhalation IH SCH (10:33)
--- NOTE | 2017-09-15 13:56 | CP.PCM.PN ---
Subjective - Date & Time of Evaluation Date of Evaluation: 09/15/17 Time of Evaluation: 13:53 - Subjective Subjective: Surgery Pt s&e. NAEON. Reports loose stool. Denies F/C/N/v/Cp/SOB. Pain controlled. + amb. Tolerating diet. + void. Objective - Vital Signs/Intake and Output Vital Signs (last 24 hours): Temp Pulse Resp BP Pulse Ox 98.9 F 100 H 18 125/58 L 97 09/14/17 16:39 09/15/17 10:35 09/14/17 16:39 09/15/17 10:35 09/14/17 16:39 Intake and Output: 09/15/17 09/15/17 06:59 18:59 Intake Total 180 Balance 180 - Medications Medications: Current Medications Acetaminophen (Tylenol 325mg Tab) 650 mg PO Q6H PRN PRN Reason: Pain, Mild (1-3) Albuterol/Ipratropium (Duoneb 3 Mg/0.5 Mg (3 Ml) Ud) 3 ml IH Q4H PRN; Protocol PRN Reason: Shortness of Breath Albuterol/Ipratropium (Duoneb 3 Mg/0.5 Mg (3 Ml) Ud) 3 ml IH [id number] RAYMUNDO PRN Reason: Protocol Last Admin: 09/15/17 13:32 Dose: Not Given Alprazolam (Xanax) 1 mg PO TID PRN; Protocol PRN Reason: Anxiety Last Admin: 09/15/17 12:21 Dose: 1 mg Amlodipine Besylate (Norvasc) 5 mg PO DAILY RAYMUNDO PRN Reason: Protocol Last Admin: 09/15/17 10:35 Dose: Not Given Enoxaparin Sodium (Lovenox) 40 mg SC 0630 RAYMUNDO PRN Reason: Protocol Last Admin: 09/15/17 05:30 Dose: 40 mg Lactated Ringer's (Lactated Ringer's) 1,000 mls @ 50 mls/hr IV .Q20H RAYMUNDO PRN Reason: Protocol Last Admin: 09/10/17 17:24 Dose: Not Given Insulin Human Lispro (Humalog Med) 0 units SC ACHS RAYMUNDO PRN Reason: Protocol Last Admin: 09/15/17 12:20 Dose: 1 units Magnesium Oxide (Mag-Ox) 400 mg PO DAILY RAYMUNDO PRN Reason: Protocol Last Admin: 09/15/17 10:15 Dose: 400 mg Multivitamins (Thera Tab) 1 tab PO DAILY [facility] Last Admin: 09/15/17 10:16 Dose: 1 tab Budesonide/Formoterol Fumarate [Symbicort 160-4.5 Mcg Inhaler] 2 2 puff IH BID [facility] Last Admin: 09/15/17 10:13 Dose: Not Given Ondansetron HCl (Zofran Inj) 4 mg IVP Q4H PRN; Protocol PRN Reason: Nausea/Vomiting Last Admin: 09/15/17 13:42 Dose: 4 mg Pantoprazole Sodium (Protonix Ec Tab) 40 mg PO 0600 [facility] PRN Reason: Protocol Last Admin: 09/15/17 05:30 Dose: 40 mg Quetiapine Fumarate (Seroquel) 200 mg PO 2000 [facility] PRN Reason: Protocol Last Admin: 09/14/17 20:09 Dose: 200 mg Tiotropium [place] (Spiriva) 18 mcg IH DAILY [facility] PRN Reason: Protocol Last Admin: 09/15/17 10:33 Dose: Not Given Tramadol HCl (Ultram) 50 mg PO TID PRN; Protocol PRN Reason: Pain, severe (8-10) Last Admin: 09/11/17 09:39 Dose: 50 mg Valsartan (Diovan) 320 mg PO QAM [facility] PRN Reason: Protocol Last Admin: 09/15/17 10:24 Dose: 320 mg - Labs Labs: 09/14/17 06:30 09/14/17 06:30 - Constitutional Appears: No Acute Distress - Head Exam Head Exam: ATRAUMATIC, NORMAL INSPECTION, NORMOCEPHALIC - Eye Exam Eye Exam: EOMI, Normal appearance, PERRL Pupil Exam: NORMAL ACCOMODATION, PERRL - ENT Exam ENT Exam: Mucous Membranes Moist, Normal Exam - Neck Exam Neck Exam: Full ROM, Normal Inspection. absent: Lymphadenopathy - Respiratory Exam Respiratory Exam: Clear to Ausculation Bilateral, NORMAL BREATHING PATTERN - Cardiovascular Exam Cardiovascular Exam: REGULAR RHYTHM, +S1, +S2. absent: Murmur - GI/Abdominal Exam GI & Abdominal Exam: Soft, Normal Bowel Sounds. absent: Distended, Firm, Tenderness, Rebound Additional comments: Incision C/D/I. Michael in place. - Extremities Exam Extremities Exam: Full ROM, Normal Capillary Refill, Normal Inspection. absent : Joint Swelling, Pedal Edema - Back Exam Back Exam: NORMAL INSPECTION - Neurological Exam Neurological Exam: Alert, Awake, CN II-XII Intact, Normal Gait, Oriented x3 - Psychiatric Exam Psychiatric exam: Normal Affect, Normal Mood - Skin Skin Exam: Dry, Intact, Normal Color, Warm. absent: Erythema Assessment and Plan - Assessment and Plan (Free Text) Assessment: 72 year old female s/p R hemicolectomy for appendicitis and cecal mass; POD#8 Path: Invasive high grade adenoCA. T3N1b Plan: Dr. Anderson's service will be taking over as the primary care team for this patient. Heme/Onc consulted, Dr. Busch Remove half of the michael Continue PT, encourage OOB/ambulation Continue anticoagulation DC planning. Likely Sunday Case discussed with Dr. Anderson
--- NOTE | 2017-09-15 22:11 | PN ---
DATE: 09/15/2017 SUBJECTIVE: This patient was seen and evaluated earlier today. The patient has three bowel movements. She complains of gassy bloating of the stomach. PHYSICAL EXAMINATION: VITAL SIGNS: Temperature is 98.5, pulse 111. blood pressure 107/62, and O2 saturation 94%. HEENT: Atraumatic. Anicteric. NECK: Supple. HEART: S1 and S2 heard. LUNGS: Bilateral air entry present. ABDOMEN: Soft. Surgical incision noticed. EXTREMITIES: No cyanosis. No clubbing. LABORATORY DATA: There are no recent labs today. IMPRESSION AND PLAN: Status post right hemicolectomy, this is poorly-differentiated adenocarcinoma, node positive. The patient was also found to have an appendicitis and periappendicitis. Continue the postoperative as per surgery. The patient is on PPI, we will continue that. Thank you very much for allowing us to participate in the care of the patient. Александр Azar MD
[2017-09-16] MEDS: Albuterol-Ipratrop 3 mg / 0.5 (3 ml) UD IH SCH ×4 (01:54→19:57)
[2017-09-16] MEDS: Pantoprazole 40 mg EC Tab PO SCH (06:03)
[2017-09-16] MEDS: Enoxaparin 40 mg Syringe SC SCH (06:04)
[2017-09-16] MEDS: Insulin Lispro (humaLOG) MEDIUM Coverage SC SCH ×4 (06:54→21:39)
[2017-09-16 07:13] LABS: BASO # 0.02 K/mm3 (0.0-2.0); BASO % 0.1 % (0.0-3.0); EOS % 0.1 % (1.5-5.0); GRAN # 13.74 (1.4-6.5); GRAN % 89.2 % (50.0-68.0); HEMATOCRIT 33.1 % (36.0-48.0); LYMPH # 0.6 (1.2-3.4); MEAN CELL VOLUME 85.5 fl (80.0-105.0); MEAN CORPUSCULAR HEMOGLOBIN 26.4 pg (25.0-35.0); MEAN CORPUSCULAR HGB CONC 30.8 g/dl (31.0-37.0); MEAN PLATELET VOLUME 8.6 fl (7.0-11.0); MONO % 6.6 % (1.0-6.0); PLATELET COUNT 513 10^3/uL (120.0-450.0); RED CELL DISTRIBUTION WIDTH 15.2 % (11.5-14.5)
[2017-09-16 07:37] LABS: WHITE BLOOD COUNT 15.4 10^3/ul (4.5-11.0)
[2017-09-16 07:57] LABS: BAND 1 % (0-2); BASOPHIL 1 % (0.0-1.0); NEUTROPHIL 87 % (50.0-70.0); PLATELET ESTIMATE NORMAL (NORMAL)
--- NOTE | 2017-09-16 09:25 | CP.PCM.PN ---
Subjective - Date & Time of Evaluation Date of Evaluation: 09/16/17 Time of Evaluation: :19 - Subjective Subjective: Surgery Progress note. Dr. Anderson PT seen and examined at bedside. No acute events overnight. Patient still reports decreased appetite. Does report ambulation. Reports diarrhea last night. No F/C. No abd pain. Objective - Vital Signs/Intake and Output Vital Signs (last 24 hours): Temp Pulse Resp BP Pulse Ox 98.6 F 110 H 20 125/57 L 90 L 09/16/17 06:00 09/16/17 06:00 09/16/17 06:00 09/16/17 06:00 09/16/17 06:00 - Medications Medications: Current Medications Acetaminophen (Tylenol 325mg Tab) 650 mg PO Q6H PRN PRN Reason: Pain, Mild (1-3) Albuterol/Ipratropium (Duoneb 3 Mg/0.5 Mg (3 Ml) Ud) 3 ml IH Q4H PRN; Protocol PRN Reason: Shortness of Breath Albuterol/Ipratropium (Duoneb 3 Mg/0.5 Mg (3 Ml) Ud) 3 ml IH [id number] RAYMUNDO PRN Reason: Protocol Last Admin: 09/16/17 07:20 Dose: Not Given Alprazolam (Xanax) 1 mg PO Q6 PRN; Protocol PRN Reason: Anxiety Last Admin: 09/16/17 06:15 Dose: 1 mg Amlodipine Besylate (Norvasc) 5 mg PO DAILY RAYMUNDO PRN Reason: Protocol Last Admin: 09/15/17 10:35 Dose: Not Given Enoxaparin Sodium (Lovenox) 40 mg SC 0630 RAYMUNDO PRN Reason: Protocol Last Admin: 09/16/17 06:04 Dose: 40 mg Lactated Ringer's (Lactated Ringer's) 1,000 mls @ 50 mls/hr IV .Q20H RAYMUNDO PRN Reason: Protocol Last Admin: 09/10/17 17:24 Dose: Not Given Insulin Human Lispro (Humalog Med) 0 units SC ACHS RAYMUNDO PRN Reason: Protocol Last Admin: 09/16/17 06:54 Dose: 3 units Magnesium Oxide (Mag-Ox) 400 mg PO DAILY RAYMUNDO PRN Reason: Protocol Last Admin: 09/15/17 10:15 Dose: 400 mg Multivitamins (Thera Tab) 1 tab PO DAILY [facility] Last Admin: 09/15/17 10:16 Dose: 1 tab Budesonide/Formoterol Fumarate [Symbicort 160-4.5 Mcg Inhaler] 2 2 puff IH BID [facility] Last Admin: 09/15/17 10:13 Dose: Not Given Ondansetron HCl (Zofran Inj) 4 mg IVP Q4H PRN; Protocol PRN Reason: Nausea/Vomiting Last Admin: 09/15/17 17:24 Dose: 4 mg Pantoprazole Sodium (Protonix Ec Tab) 40 mg PO 0600 [facility] PRN Reason: Protocol Last Admin: 09/16/17 06:03 Dose: 40 mg Quetiapine Fumarate (Seroquel) 200 mg PO 2000 [facility] PRN Reason: Protocol Last Admin: 09/15/17 19:59 Dose: 200 mg Tiotropium [place] (Spiriva) 18 mcg IH DAILY [facility] PRN Reason: Protocol Last Admin: 09/15/17 10:33 Dose: Not Given Tramadol HCl (Ultram) 50 mg PO TID PRN; Protocol PRN Reason: Pain, severe (8-10) Last Admin: 09/11/17 09:39 Dose: 50 mg Valsartan (Diovan) 320 mg PO QAM [facility] PRN Reason: Protocol Last Admin: 09/15/17 10:24 Dose: 320 mg - Labs Labs: 09/16/17 06:50 09/14/17 06:30 - Constitutional Appears: Well, No Acute Distress - Head Exam Head Exam: ATRAUMATIC, NORMAL INSPECTION, NORMOCEPHALIC - Eye Exam Eye Exam: EOMI - ENT Exam ENT Exam: Mucous Membranes Moist - Neck Exam Neck Exam: Full ROM - Respiratory Exam Respiratory Exam: Clear to Ausculation Bilateral, NORMAL BREATHING PATTERN. absent: Wheezes, Respiratory Distress - Cardiovascular Exam Cardiovascular Exam: RRR, +S1, +S2. absent: JVD - GI/Abdominal Exam GI & Abdominal Exam: Soft. absent: Distended, Firm, Guarding, Rigid, Tenderness Additional comments: midline incision intact with michael. Skin edges well approximated. - Extremities Exam Extremities Exam: Normal Inspection. absent: Calf Tenderness - Neurological Exam Neurological Exam: Alert, Awake, Oriented x3 - Skin Skin Exam: Dry, Intact, Normal Color, Warm Assessment and Plan - Assessment and Plan (Free Text) Assessment: 72yo F s/p R hemicolectomy for appendicitis and cecal mass; POD#9 Path: Invasive high-grade adenoCA. T3N1b - Dr. Anderson's service is now primary care team - Heme/Onc consulted, Dr. Busch, f/u recs - Continue PT, encourage OOB/ambulation - Continue anticoagulation Dispo: DC planning for Sunday Further recs as per Dr. Justin Del Rio PGY1 surgery recs: [phone]
[2017-09-16] MEDS: Magnesium Oxide 400 mg Tab UD PO SCH (10:17)
[2017-09-16] MEDS: Tiotropium 18 mcg Cap For Inhalation IH SCH (10:18)
[2017-09-16] MEDS: Multivitamin Therapeutic Tab PO SCH (10:19)
[2017-09-16] MEDS: BUDESONIDE IH SCH (11:18)
[2017-09-16] MEDS: FORMOTEROL FUMARATE IH SCH (11:18)
--- NOTE | 2017-09-16 21:48 | CP.PCM.PN ---
Subjective - Date & Time of Evaluation Date of Evaluation: 09/15/17 Time of Evaluation: 19:00 - Subjective Subjective: Patient feels slightly anxious. Upset about how cancer diagnosis was communicated previously by primary team. Otherwise not acute complaints ROS: 12 ROs engative Pain: denies. Objective - Vital Signs/Intake and Output Vital Signs (last 24 hours): Temp Pulse Resp BP Pulse Ox 99.2 F 104 H 16 102/58 L 92 L 09/16/17 16:00 09/16/17 16:00 09/16/17 16:00 09/16/17 16:00 09/16/17 16:00 - Medications Medications: Current Medications Acetaminophen (Tylenol 325mg Tab) 650 mg PO Q6H PRN PRN Reason: Pain, Mild (1-3) Albuterol/Ipratropium (Duoneb 3 Mg/0.5 Mg (3 Ml) Ud) 3 ml IH Q4H PRN; Protocol PRN Reason: Shortness of Breath Albuterol/Ipratropium (Duoneb 3 Mg/0.5 Mg (3 Ml) Ud) 3 ml IH [id number] RAYMUNDO PRN Reason: Protocol Last Admin: 09/16/17 19:57 Dose: Not Given Alprazolam (Xanax) 1 mg PO Q6 PRN; Protocol PRN Reason: Anxiety Last Admin: 09/16/17 19:57 Dose: 1 mg Amlodipine Besylate (Norvasc) 5 mg PO DAILY RAYMUNDO PRN Reason: Protocol Last Admin: 09/16/17 10:17 Dose: Not Given Enoxaparin Sodium (Lovenox) 40 mg SC 0630 RAYMUNDO PRN Reason: Protocol Last Admin: 09/16/17 06:04 Dose: 40 mg Lactated Ringer's (Lactated Ringer's) 1,000 mls @ 50 mls/hr IV .Q20H RAYMUNDO PRN Reason: Protocol Last Admin: 09/10/17 17:24 Dose: Not Given Insulin Human Lispro (Humalog Med) 0 units SC ACHS RAYMUNDO PRN Reason: Protocol Last Admin: 09/16/17 21:39 Dose: Not Given Magnesium Oxide (Mag-Ox) 400 mg PO DAILY RAYMUNDO PRN Reason: Protocol Last Admin: 09/16/17 10:17 Dose: 400 mg Multivitamins (Thera Tab) 1 tab PO DAILY [facility] Last Admin: 09/16/17 10:19 Dose: 1 tab Budesonide/Formoterol Fumarate [Symbicort 160-4.5 Mcg Inhaler] 2 2 puff IH BID [facility] Last Admin: 09/16/17 11:18 Dose: Not Given Ondansetron HCl (Zofran Inj) 4 mg IVP Q4H PRN; Protocol PRN Reason: Nausea/Vomiting Last Admin: 09/15/17 17:24 Dose: 4 mg Pantoprazole Sodium (Protonix Ec Tab) 40 mg PO 0600 [facility] PRN Reason: Protocol Last Admin: 09/16/17 06:03 Dose: 40 mg Quetiapine Fumarate (Seroquel) 200 mg PO 2000 [facility] PRN Reason: Protocol Last Admin: 09/16/17 19:59 Dose: 200 mg Tiotropium [place] (Spiriva) 18 mcg IH DAILY [facility] PRN Reason: Protocol Last Admin: 09/16/17 10:18 Dose: 18 mcg Tramadol HCl (Ultram) 50 mg PO TID PRN; Protocol PRN Reason: Pain, severe (8-10) Last Admin: 09/11/17 09:39 Dose: 50 mg Valsartan (Diovan) 320 mg PO QAM [facility] PRN Reason: Protocol Last Admin: 09/16/17 10:17 Dose: Not Given - Labs Labs: 09/16/17 06:50 09/14/17 06:30 - Constitutional Appears: Well - Respiratory Exam Respiratory Exam: Clear to Ausculation Bilateral, NORMAL BREATHING PATTERN - Cardiovascular Exam Cardiovascular Exam: REGULAR RHYTHM, +S1, +S2. absent: Murmur - GI/Abdominal Exam GI & Abdominal Exam: Soft. absent: Guarding, Rigid - Extremities Exam Extremities Exam: Full ROM, Normal Capillary Refill, Normal Inspection. absent : Joint Swelling, Pedal Edema Assessment and Plan - Assessment and Plan (Free Text) Assessment: Ms. Riggs is a 72yo female with past medical history of COPD, HTN, DM, GERD, osteoarthritis, anemia who came to [facility] for lower abdominal pain, fatigue and unintentional 20lb weight loss and subsequently found to have a cecal mass and appendicitis s/p R hemicolectomy and appendectomy with preliminary pathology c/ w adeno T3N1b pathology. Patient will likely require adjuvant chemotherapy will discuss further as outpatient once pathology finalized. Will consider extended tobi testing, braf testing and MSI studies as an outpatient. Adan Busch MD Oncology Service
--- NOTE | 2017-09-16 21:49 | CP.PCM.PN ---
Subjective - Date & Time of Evaluation Date of Evaluation: 09/16/17 Time of Evaluation: 19:00 - Subjective Subjective: No acute events over night. Patient had michael removed. Has some soft stools earlier to day ROS: 12 ROs negative Pain: denies Objective - Vital Signs/Intake and Output Vital Signs (last 24 hours): Temp Pulse Resp BP Pulse Ox 99.2 F 104 H 16 102/58 L 92 L 09/16/17 16:00 09/16/17 16:00 09/16/17 16:00 09/16/17 16:00 09/16/17 16:00 - Medications Medications: Current Medications Acetaminophen (Tylenol 325mg Tab) 650 mg PO Q6H PRN PRN Reason: Pain, Mild (1-3) Albuterol/Ipratropium (Duoneb 3 Mg/0.5 Mg (3 Ml) Ud) 3 ml IH Q4H PRN; Protocol PRN Reason: Shortness of Breath Albuterol/Ipratropium (Duoneb 3 Mg/0.5 Mg (3 Ml) Ud) 3 ml IH [id number] RAYMUNDO PRN Reason: Protocol Last Admin: 09/16/17 19:57 Dose: Not Given Alprazolam (Xanax) 1 mg PO Q6 PRN; Protocol PRN Reason: Anxiety Last Admin: 09/16/17 19:57 Dose: 1 mg Amlodipine Besylate (Norvasc) 5 mg PO DAILY RAYMUNDO PRN Reason: Protocol Last Admin: 09/16/17 10:17 Dose: Not Given Enoxaparin Sodium (Lovenox) 40 mg SC 0630 RAYMUNDO PRN Reason: Protocol Last Admin: 09/16/17 06:04 Dose: 40 mg Lactated Ringer's (Lactated Ringer's) 1,000 mls @ 50 mls/hr IV .Q20H RAYMUNDO PRN Reason: Protocol Last Admin: 09/10/17 17:24 Dose: Not Given Insulin Human Lispro (Humalog Med) 0 units SC ACHS RAYMUNDO PRN Reason: Protocol Last Admin: 09/16/17 21:39 Dose: Not Given Magnesium Oxide (Mag-Ox) 400 mg PO DAILY RAYMUNDO PRN Reason: Protocol Last Admin: 09/16/17 10:17 Dose: 400 mg Multivitamins (Thera Tab) 1 tab PO DAILY [facility]MUNDO Last Admin: 09/16/17 10:19 Dose: 1 tab Budesonide/Formoterol Fumarate [Symbicort 160-4.5 Mcg Inhaler] 2 2 puff IH BID [facility] Last Admin: 09/16/17 11:18 Dose: Not Given Ondansetron HCl (Zofran Inj) 4 mg IVP Q4H PRN; Protocol PRN Reason: Nausea/Vomiting Last Admin: 09/15/17 17:24 Dose: 4 mg Pantoprazole Sodium (Protonix Ec Tab) 40 mg PO 0600 [facility] PRN Reason: Protocol Last Admin: 09/16/17 06:03 Dose: 40 mg Quetiapine Fumarate (Seroquel) 200 mg PO 2000 [facility] PRN Reason: Protocol Last Admin: 09/16/17 19:59 Dose: 200 mg Tiotropium [place] (Spiriva) 18 mcg IH DAILY [facility] PRN Reason: Protocol Last Admin: 09/16/17 10:18 Dose: 18 mcg Tramadol HCl (Ultram) 50 mg PO TID PRN; Protocol PRN Reason: Pain, severe (8-10) Last Admin: 09/11/17 09:39 Dose: 50 mg Valsartan (Diovan) 320 mg PO QAM [facility] PRN Reason: Protocol Last Admin: 09/16/17 10:17 Dose: Not Given - Labs Labs: 09/16/17 06:50 09/14/17 06:30 - Constitutional Appears: Well - Neck Exam Neck Exam: Full ROM, Normal Inspection. absent: Lymphadenopathy - Respiratory Exam Respiratory Exam: Clear to Ausculation Bilateral, NORMAL BREATHING PATTERN - Cardiovascular Exam Cardiovascular Exam: REGULAR RHYTHM, +S1, +S2. absent: Murmur - GI/Abdominal Exam GI & Abdominal Exam: Soft. absent: Guarding, Rigid - Extremities Exam Extremities Exam: Full ROM, Normal Capillary Refill, Normal Inspection. absent : Joint Swelling, Pedal Edema Assessment and Plan - Assessment and Plan (Free Text) Assessment: Ms. Riggs is a 72yo female with past medical history of COPD, HTN, DM, GERD, osteoarthritis, anemia who came to [facility] for lower abdominal pain, fatigue and unintentional 20lb weight loss and subsequently found to have a cecal mass and appendicitis s/p R hemicolectomy and appendectomy with preliminary pathology c/ w adeno T3N1b pathology. Patient will likely require adjuvant chemotherapy will discuss further as outpatient once pathology finalized. Will consider extended tobi testing, braf testing and MSI studies as an outpatient. Adan Busch MD Oncology Service
[2017-09-17] MEDS: Albuterol-Ipratrop 3 mg / 0.5 (3 ml) UD IH SCH ×4 (01:54→19:44)
[2017-09-17] MEDS: Pantoprazole 40 mg EC Tab PO SCH (06:09)
[2017-09-17] MEDS: Enoxaparin 40 mg Syringe SC SCH (06:09)
[2017-09-17] MEDS: Insulin Lispro (humaLOG) MEDIUM Coverage SC SCH ×4 (06:46→22:19)
[2017-09-17] MEDS: FORMOTEROL FUMARATE IH SCH ×2 (10:00→17:10)
[2017-09-17] MEDS: BUDESONIDE IH SCH ×2 (10:00→17:10)
[2017-09-17] MEDS: Magnesium Oxide 400 mg Tab UD PO SCH (10:09)
[2017-09-17] MEDS: Multivitamin Therapeutic Tab PO SCH (10:09)
[2017-09-17] MEDS: Tiotropium 18 mcg Cap For Inhalation IH SCH (10:09)
--- NOTE | 2017-09-17 10:57 | CP.PCM.PN ---
Subjective - Date & Time of Evaluation Date of Evaluation: 09/17/17 Time of Evaluation: 07:30 - Subjective Subjective: Hemre/onc progress note for Dr Busch. Patient with no acute events overnight. Patient with no complaints. Denies cp, sob, n/v/d. Denies fever or chills. Saturating 93% on 2 litters of nasal cannula. Afebrile. Objective - Vital Signs/Intake and Output Vital Signs (last 24 hours): Temp Pulse Resp BP Pulse Ox 98.7 F 90 20 90/47 L 93 L 09/17/17 06:00 09/17/17 06:00 09/17/17 06:00 09/17/17 10:12 09/17/17 06:00 - Medications Medications: Current Medications Acetaminophen (Tylenol 325mg Tab) 650 mg PO Q6H PRN PRN Reason: Pain, Mild (1-3) Albuterol/Ipratropium (Duoneb 3 Mg/0.5 Mg (3 Ml) Ud) 3 ml IH Q4H PRN; Protocol PRN Reason: Shortness of Breath Albuterol/Ipratropium (Duoneb 3 Mg/0.5 Mg (3 Ml) Ud) 3 ml IH [id number] RAYMUNDO PRN Reason: Protocol Last Admin: 09/17/17 09:18 Dose: 3 ml Alprazolam (Xanax) 1 mg PO Q6 PRN; Protocol PRN Reason: Anxiety Last Admin: 09/17/17 10:09 Dose: 1 mg Amlodipine Besylate (Norvasc) 5 mg PO DAILY RAYMUNDO PRN Reason: Protocol Last Admin: 09/17/17 10:12 Dose: Not Given Enoxaparin Sodium (Lovenox) 40 mg SC 0630 RAYMUNDO PRN Reason: Protocol Last Admin: 09/17/17 06:09 Dose: 40 mg Lactated Ringer's (Lactated Ringer's) 1,000 mls @ 50 mls/hr IV .Q20H RAYMUNDO PRN Reason: Protocol Last Admin: 09/10/17 17:24 Dose: Not Given Insulin Human Lispro (Humalog Med) 0 units SC ACHS RAYMUNDO PRN Reason: Protocol Last Admin: 09/17/17 06:46 Dose: 3 units Magnesium Oxide (Mag-Ox) 400 mg PO DAILY RAYMUNDO PRN Reason: Protocol Last Admin: 09/17/17 10:09 Dose: 400 mg Multivitamins (Thera Tab) 1 tab PO DAILY [facility] Last Admin: 09/17/17 10:09 Dose: 1 tab Budesonide/Formoterol Fumarate [Symbicort 160-4.5 Mcg Inhaler] 2 2 puff IH BID [facility] Last Admin: 09/16/17 11:18 Dose: Not Given Ondansetron HCl (Zofran Inj) 4 mg IVP Q4H PRN; Protocol PRN Reason: Nausea/Vomiting Last Admin: 09/15/17 17:24 Dose: 4 mg Pantoprazole Sodium (Protonix Ec Tab) 40 mg PO 0600 [facility] PRN Reason: Protocol Last Admin: 09/17/17 06:09 Dose: 40 mg Quetiapine Fumarate (Seroquel) 200 mg PO 2000 [facility] PRN Reason: Protocol Last Admin: 09/16/17 19:59 Dose: 200 mg Tiotropium [place] (Spiriva) 18 mcg IH DAILY [facility] PRN Reason: Protocol Last Admin: 09/17/17 10:09 Dose: 18 mcg Tramadol HCl (Ultram) 50 mg PO TID PRN; Protocol PRN Reason: Pain, severe (8-10) Last Admin: 09/11/17 09:39 Dose: 50 mg Valsartan (Diovan) 320 mg PO QAM [facility] PRN Reason: Protocol Last Admin: 09/17/17 10:12 Dose: Not Given - Labs Labs: 09/16/17 06:50 09/14/17 06:30 - Constitutional Appears: No Acute Distress, Cachectic, Chronically Ill - Head Exam Head Exam: ATRAUMATIC, NORMAL INSPECTION, NORMOCEPHALIC - Eye Exam Eye Exam: Normal appearance, PERRL. absent: Scleral icterus - ENT Exam ENT Exam: Mucous Membranes Moist - Neck Exam Neck Exam: Normal Inspection - Respiratory Exam Respiratory Exam: Clear to Ausculation Bilateral, NORMAL BREATHING PATTERN. absent: Rales, Rhonchi, Wheezes, Respiratory Distress, Stridor - Cardiovascular Exam Cardiovascular Exam: REGULAR RHYTHM, +S1, +S2 - GI/Abdominal Exam GI & Abdominal Exam: Soft, Normal Bowel Sounds. absent: Distended, Firm, Guarding, Rigid, Tenderness Additional comments: Surgical incision site intact. - Extremities Exam Extremities Exam: Normal Inspection. absent: Pedal Edema, Tenderness - Back Exam Back Exam: NORMAL INSPECTION - Neurological Exam Neurological Exam: Alert, Awake, Oriented x3 - Psychiatric Exam Psychiatric exam: Normal Affect, Normal Mood - Skin Skin Exam: Dry, Normal Color, Warm Assessment and Plan - Assessment and Plan (Free Text) Assessment: Patient is a 72yo female with past medical history of COPD, HTN, DM, GERD, osteoarthritis, anemia who came to [facility] for lower abdominal pain, fatigue and unintentional 20lb weight loss and subsequently found to have a cecal mass and appendicitis s/p R hemicolectomy and appendectomy with preliminary pathology revealing adenocarcinoma T3N1b pathology. Plan: - Follow up with Dr Busch as outpatient, preferably in 2-3 weeks - Patient will likely require adjuvant chemotherapy as outpatient based on final pathology - Consider home sc Lovenox due to recent abdominal surgery and malignancy predisposing patient to hypercoagulable state. - PET scan as outpatient Patient seen, examined and case discussed with Dr Busch.
--- NOTE | 2017-09-17 11:13 | PN ---
DATE: SUBJECTIVE: A 72-year-old white female, status post right hemicolectomy for an apple-core lesion of the cecum. The patient is pending pathology adenocarcinoma invasive, highly aggressive possible lymph node invasion, awaiting final pathology. The patient is awake and alert. She is doing physical therapy and occupational therapy. She is strong enough to walk in the hallway with a walker, but not able to transfer out of the bed or out of the chair with the walker at this point. She does have a nonproductive cough, and she does have some rhonchi at the left base, a repeat chest x-ray will be done today. PHYSICAL EXAMINATION VITAL SIGNS: Stable. She is afebrile. LABORATORY DATA: White count of 15,400 with a left shift, hemoglobin is 10.2. PLAN: Followup for her pathology. Continue physical therapy and occupational therapy. Repeat chest x-ray. Ryan Johnson MD
[2017-09-17 11:46] LABS: BASO # 0.02 K/mm3 (0.0-2.0); BASO % 0.1 % (0.0-3.0); EOS # 0.1 (0.0-0.7); EOS % 0.4 % (1.5-5.0); GRAN # 11.53 (1.4-6.5); GRAN % 82.8 % (50.0-68.0); HEMATOCRIT 32.4 % (36.0-48.0); LYMPH # 1.1 (1.2-3.4); LYMPH % 8.2 % (22.0-35.0); MEAN CELL VOLUME 85.7 fl (80.0-105.0); MEAN CORPUSCULAR HEMOGLOBIN 26.5 pg (25.0-35.0); MEAN CORPUSCULAR HGB CONC 30.9 g/dl (31.0-37.0); MEAN PLATELET VOLUME 8.8 fl (7.0-11.0); MONO # 1.2 (0.1-0.6); MONO % 8.5 % (1.0-6.0); RED CELL DISTRIBUTION WIDTH 15.3 % (11.5-14.5); WHITE BLOOD COUNT 13.9 10^3/ul (4.5-11.0)
--- NOTE | 2017-09-17 12:30 | CP.PCM.PN ---
Subjective - Date & Time of Evaluation Date of Evaluation: 09/17/17 Time of Evaluation: 12:23 - Subjective Subjective: General Surgery - Dr. Anderson Pt S&E. NEHEMIAH. Pt complains of diarrhea and poor appetite. She has been eating only small amounts at meals. SHe states she's had several episodes of diarrhea/day, increasing in frequency and malodorous. She states she's had 3 loose watery stools already this morning. She he has been ambulating with assistance and PT. She denies any F/C, SOB/Cp. All michael and surgical drains have been removed. Objective - Vital Signs/Intake and Output Vital Signs (last 24 hours): Temp Pulse Resp BP Pulse Ox 98.7 F 90 20 90/47 L 93 L 09/17/17 06:00 09/17/17 06:00 09/17/17 06:00 09/17/17 10:12 09/17/17 06:00 - Medications Medications: Current Medications Acetaminophen (Tylenol 325mg Tab) 650 mg PO Q6H PRN PRN Reason: Pain, Mild (1-3) Albuterol/Ipratropium (Duoneb 3 Mg/0.5 Mg (3 Ml) Ud) 3 ml IH Q4H PRN; Protocol PRN Reason: Shortness of Breath Albuterol/Ipratropium (Duoneb 3 Mg/0.5 Mg (3 Ml) Ud) 3 ml IH [id number] RAYMUNDO PRN Reason: Protocol Last Admin: 09/17/17 09:18 Dose: 3 ml Alprazolam (Xanax) 1 mg PO Q6 PRN; Protocol PRN Reason: Anxiety Last Admin: 09/17/17 10:09 Dose: 1 mg Amlodipine Besylate (Norvasc) 5 mg PO DAILY RAYMUNDO PRN Reason: Protocol Last Admin: 09/17/17 10:12 Dose: Not Given Enoxaparin Sodium (Lovenox) 40 mg SC 0630 RAYMUNDO PRN Reason: Protocol Last Admin: 09/17/17 06:09 Dose: 40 mg Lactated Ringer's (Lactated Ringer's) 1,000 mls @ 50 mls/hr IV .Q20H RAYMUNDO PRN Reason: Protocol Last Admin: 09/10/17 17:24 Dose: Not Given Insulin Human Lispro (Humalog Med) 0 units SC ACHS RAYMUNDO PRN Reason: Protocol Last Admin: 09/17/17 12:18 Dose: 1 units Magnesium Oxide (Mag-Ox) 400 mg PO DAILY [facility] PRN Reason: Protocol Last Admin: 09/17/17 10:09 Dose: 400 mg Multivitamins (Thera Tab) 1 tab PO DAILY [facility] Last Admin: 09/17/17 10:09 Dose: 1 tab Budesonide/Formoterol Fumarate [Symbicort 160-4.5 Mcg Inhaler] 2 2 puff IH BID [facility] Last Admin: 09/16/17 11:18 Dose: Not Given Ondansetron HCl (Zofran Inj) 4 mg IVP Q4H PRN; Protocol PRN Reason: Nausea/Vomiting Last Admin: 09/15/17 17:24 Dose: 4 mg Pantoprazole Sodium (Protonix Ec Tab) 40 mg PO 0600 [facility] PRN Reason: Protocol Last Admin: 09/17/17 06:09 Dose: 40 mg Quetiapine Fumarate (Seroquel) 200 mg PO 2000 [facility] PRN Reason: Protocol Last Admin: 09/16/17 19:59 Dose: 200 mg Tiotropium [place] (Spiriva) 18 mcg IH DAILY [facility] PRN Reason: Protocol Last Admin: 09/17/17 10:09 Dose: 18 mcg Tramadol HCl (Ultram) 50 mg PO TID PRN; Protocol PRN Reason: Pain, severe (8-10) Last Admin: 09/11/17 09:39 Dose: 50 mg Valsartan (Diovan) 320 mg PO QAM [facility] PRN Reason: Protocol Last Admin: 09/17/17 10:12 Dose: Not Given - Labs Labs: 09/17/17 11:30 09/14/17 06:30 - Constitutional Appears: No Acute Distress - Head Exam Head Exam: ATRAUMATIC, NORMAL INSPECTION, NORMOCEPHALIC - Eye Exam Eye Exam: Normal appearance - Respiratory Exam Respiratory Exam: NORMAL BREATHING PATTERN. absent: Respiratory Distress - GI/Abdominal Exam GI & Abdominal Exam: Soft. absent: Distended, Firm, Guarding, Rigid, Tenderness , Rebound Additional comments: incision healing well - Neurological Exam Neurological Exam: Alert, Oriented x3 - Psychiatric Exam Psychiatric exam: Normal Affect, Normal Mood - Skin Skin Exam: Dry, Intact Assessment and Plan - Assessment and Plan (Free Text) Assessment: 72yo F POD #11 s/p R hemicolectomy for cecal mass, poorly differentiated adenoCA , LNs positive, Stage T3N1b -Continue Regular diet, encourage PO intake -F/U Stool CDIff -F/U Repeat CXR -Repeat CBC tomorrow to trend WBC, down today from yesterday -DC possible Sunday pending the above DW Dr. Justin Fang PGY3
--- NOTE | 2017-09-17 13:37 | RAD ---
HISTORY: lll dave COMPARISON: Portable chest 09/07/2017. TECHNIQUE: Chest PA and lateral FINDINGS: LUNGS: There is improved aeration of the right base with only minimal residual atelectasis and/or infiltrate remaining medially. Persistent limited left basilar airspace disease appreciated however. PLEURA: No right pleural effusion evident or bilateral pneumothorax. Minimal left pleural effusion not excluded. CARDIOVASCULAR: Cardiomegaly appears stable. No definite pulmonary vascular derangement. OSSEOUS STRUCTURES: No significant abnormalities. VISUALIZED UPPER ABDOMEN: Normal. OTHER FINDINGS: None. IMPRESSION: Stable limited left basilar airspace disease with significant improvement at the right base. Limited right basilar airspace disease residual is noted. Trace of pleural effusion not excluded.
--- NOTE | 2017-09-17 14:48 | CP.PCM.CON ---
<Priscilla Lopez - Last Filed: 09/17/17 14:45> History of Present Illness - History of Present Illness History of Present Illness: 72 y/o female with PMHx of COPD HLD, HTN, DM2, GERD, OA, and anemia seen and evaluated at bedside for elongated toe nails. Patient states that she came to the hospital for the increased stomach pain. Patient states that she just had an appendectomy during her stay at the hospital. Patient states that she missed her appointment with her partner (Dr. Mcleod) for the nail clipping. Patient denies of any other pedal complains at this time. PMHx: COPD HLD, HTN, DM2, GERD, OA, and anemia PSHx: B/L Knee Replacement, cataracts, colonoscopy Allergies: Levofloxacin SHx: Quit smoking 1984, denied etoh or illicits Review of Systems - Constitutional Constitutional: As Per HPI Past Patient History - Infectious Disease Hx of Infectious Diseases: None - Tetanus Immunizations Tetanus Immunization: Unknown - Past Social History Smoking Status: Former Smoker Alcohol: None Drugs: Denies Home Situation {Lives}: Alone - CARDIAC Hx Cardiac Disorders: Yes Hx Hypertension: Yes - PULMONARY Hx Chronic Obstructive Pulmonary Disease (COPD): Yes (no Home O2) - NEUROLOGICAL Hx Paralysis: No - HEENT Hx Cataracts: Yes (removal b/l) - RENAL Hx Chronic Kidney Disease: No - ENDOCRINE/METABOLIC Hx Diabetes Mellitus Type 2: Yes - HEMATOLOGICAL/ONCOLOGICAL Hx Blood Disorders: Yes Hx Anemia: Yes (blood transfusion and iron replacement) - INTEGUMENTARY Hx Dermatological Problems: No - MUSCULOSKELETAL/RHEUMATOLOGICAL Hx Arthritis: Yes (OA) - GASTROINTESTINAL Hx Gastrointestinal Disorders: Yes (gastritis, gas,) Hx Diverticulitis: Yes Hx Gastroesophageal Reflux: Yes Other/Comment: "can't eat a lot of things" pt stated, has been alternating from normal bm's to diarrhea, for about 6 months - GENITOURINARY/GYNECOLOGICAL Hx Genitourinary Disorders: Yes Hx Urinary Tract Infection: Yes (dx 3 days ago on amoxicillin x2 days) Other/Comment: bladder sling procedure, dropped and became "heavy"c/o feels like she has to urinate and can't - PSYCHIATRIC Hx Depression: Yes Hx Emotional Abuse: No Hx Physical Abuse: No - SURGICAL HISTORY Hx Surgeries: Yes - ANESTHESIA Hx Anesthesia Reactions: No Hx Malignant Hyperthermia: No Meds Allergies/Adverse Reactions: Allergies Allergy/AdvReac Type Severity Reaction Status Date / Time levofloxacin [From Levaquin] Allergy Severe PAIN Verified 09/11/17 22:58 - Medications Medications: Current Medications Acetaminophen (Tylenol 325mg Tab) 650 mg PO Q6H PRN PRN Reason: Pain, Mild (1-3) Albuterol/Ipratropium (Duoneb 3 Mg/0.5 Mg (3 Ml) Ud) 3 ml IH Q4H PRN; Protocol PRN Reason: Shortness of Breath Albuterol/Ipratropium (Duoneb 3 Mg/0.5 Mg (3 Ml) Ud) 3 ml IH [id number] RAYMUNDO PRN Reason: Protocol Last Admin: 09/17/17 13:39 Dose: 3 ml Alprazolam (Xanax) 1 mg PO Q6 PRN; Protocol PRN Reason: Anxiety Last Admin: 09/17/17 10:09 Dose: 1 mg Amlodipine Besylate (Norvasc) 5 mg PO DAILY RAYMUNDO PRN Reason: Protocol Last Admin: 09/17/17 10:12 Dose: Not Given Enoxaparin Sodium (Lovenox) 40 mg SC 0630 RAYMUNDO PRN Reason: Protocol Last Admin: 09/17/17 06:09 Dose: 40 mg Lactated Ringer's (Lactated Ringer's) 1,000 mls @ 50 mls/hr IV .Q20H RAYMUNDO PRN Reason: Protocol Last Admin: 09/10/17 17:24 Dose: Not Given Insulin Human Lispro (Humalog Med) 0 units SC ACHS RAYMUNDO PRN Reason: Protocol Last Admin: 09/17/17 12:18 Dose: 1 units Magnesium Oxide (Mag-Ox) 400 mg PO DAILY RAYMUNDO PRN Reason: Protocol Last Admin: 09/17/17 10:09 Dose: 400 mg Multivitamins (Thera Tab) 1 tab PO DAILY [facility] Last Admin: 09/17/17 10:09 Dose: 1 tab Budesonide/Formoterol Fumarate [Symbicort 160-4.5 Mcg Inhaler] 2 2 puff IH BID [facility] Last Admin: 09/16/17 11:18 Dose: Not Given Ondansetron HCl (Zofran Inj) 4 mg IVP Q4H PRN; Protocol PRN Reason: Nausea/Vomiting Last Admin: 09/15/17 17:24 Dose: 4 mg Pantoprazole Sodium (Protonix Ec Tab) 40 mg PO 0600 RAYMUNDO PRN Reason: Protocol Last Admin: 09/17/17 06:09 Dose: 40 mg Quetiapine Fumarate (Seroquel) 200 mg PO 2000 [facility] PRN Reason: Protocol Last Admin: 09/16/17 19:59 Dose: 200 mg Tiotropium [place] (Spiriva) 18 mcg IH DAILY RAYMUNDO PRN Reason: Protocol Last Admin: 09/17/17 10:09 Dose: 18 mcg Tramadol HCl (Ultram) 50 mg PO TID PRN; Protocol PRN Reason: Pain, severe (8-10) Last Admin: 09/11/17 09:39 Dose: 50 mg Valsartan (Diovan) 320 mg PO QAM [facility] PRN Reason: Protocol Last Admin: 09/17/17 10:12 Dose: Not Given Physical Exam - Constitutional Appears: Well, Non-toxic, No Acute Distress - Extremities Exam Extremities exam: Positive for: full ROM, normal capillary refill, normal inspection, pedal pulses present. Negative for: calf tenderness, joint swelling , pedal edema, tenderness Additional comments: Bilateral LE exam: VASC: DP/PT pulses are palpable 1/4 bilaterally, RE[employer]UITMENT INTERN: < 3 sec to all digits, Temp gradient: warm to cool from proximal to distal, no pitting or non-pitting edema noted b/l DERM: Nails are elongated, dystrophic, discolored x 10, no open lesions, no clinical suspicion of active infection NEURO: Protective sensation grossly intact ORTHO: MMT: 5/5 during inversion, eversion, plantarflexion and dorsiflexion - Neurological Exam Neurological exam: Alert, Oriented x3 - Psychiatric Exam Psychiatric exam: Normal Affect, Normal Mood Results - Vital Signs Recent Vital Signs: Last Vital Signs Temp 98.7 F 09/17/17 06:00 Pulse 90 09/17/17 06:00 Resp 20 09/17/17 06:00 BP 90/47 L 09/17/17 10:12 Pulse Ox 93 L 09/17/17 06:00 - Labs Result Diagrams: 09/17/17 11:30 09/14/17 06:30 Labs: Laboratory Results - last 24 hr 09/16/17 09/16/17 09/16/17 06:10 11:13 16:42 WBC RBC Hgb Hct MCV MCH MCHC RDW Plt Count MPV Gran % Lymph % (Auto) [place] % (Auto) Eos % (Auto) Baso % (Auto) Gran # Lymph # [place]kins # Eos # Baso # POC Glucose (mg/dL) 211 H 188 H 208 H 09/16/17 09/17/17 09/17/17 21:24 05:33 11:30 WBC 13.9 H RBC 3.78 Hgb 10.0 L Hct 32.4 L MCV 85.7 MCH 26.5 MCHC 30.9 L RDW 15.3 H Plt Count 435 MPV 8.8 Gran % 82.8 H Lymph % (Auto) 8.2 L [place] % (Auto) 8.5 H Eos % (Auto) 0.4 L Baso % (Auto) 0.1 Gran # 11.53 H Lymph # 1.1 L [place]kins # 1.2 H Eos # 0.1 Baso # 0.02 POC Glucose (mg/dL) 215 H 203 H 09/17/17 11:48 WBC RBC Hgb Hct MCV MCH MCHC RDW Plt Count MPV Gran % Lymph % (Auto) [place] % (Auto) Eos % (Auto) Baso % (Auto) Gran # Lymph # [place]kins # Eos # Baso # POC Glucose (mg/dL) 167 H Assessment & Plan - Assessment and Plan (Free Text) Assessment: 72 y/o female seen and evaluated at bedside for elongated nails Plan: Patient seen and evaluated at bedside Patient discussed in details with attending Dr. Mcleod Labs, vitals and charts reviewed Aseptic debridement of nails using sterile nippers Patient tolerated the procedure well with no incidents Please re-consult podiatry as needed - thank you for the podiatry consult - Date & Time Date: 09/17/17 Time: 14:53 <Helena Mcleod - Last Filed: 09/17/17 15:31> Meds - Medications Medications: Current Medications Acetaminophen (Tylenol 325mg Tab) 650 mg PO Q6H PRN PRN Reason: Pain, Mild (1-3) Albuterol/Ipratropium (Duoneb 3 Mg/0.5 Mg (3 Ml) Ud) 3 ml IH Q4H PRN; Protocol PRN Reason: Shortness of Breath Albuterol/Ipratropium (Duoneb 3 Mg/0.5 Mg (3 Ml) Ud) 3 ml IH [id number] RAYMUNDO PRN Reason: Protocol Last Admin: 09/17/17 13:39 Dose: 3 ml Alprazolam (Xanax) 1 mg PO Q6 PRN; Protocol PRN Reason: Anxiety Last Admin: 09/17/17 10:09 Dose: 1 mg Amlodipine Besylate (Norvasc) 5 mg PO DAILY RAYMUNDO PRN Reason: Protocol Last Admin: 09/17/17 10:12 Dose: Not Given Enoxaparin Sodium (Lovenox) 40 mg SC 0630 RAYMUNDO PRN Reason: Protocol Last Admin: 09/17/17 06:09 Dose: 40 mg Lactated Ringer's (Lactated Ringer's) 1,000 mls @ 50 mls/hr IV .Q20H RAYMUNDO PRN Reason: Protocol Last Admin: 09/10/17 17:24 Dose: Not Given Insulin Human Lispro (Humalog Med) 0 units SC ACHS [facility] PRN Reason: Protocol Last Admin: 09/17/17 12:18 Dose: 1 units Magnesium Oxide (Mag-Ox) 400 mg PO DAILY [facility] PRN Reason: Protocol Last Admin: 09/17/17 10:09 Dose: 400 mg Multivitamins (Thera Tab) 1 tab PO DAILY [facility] Last Admin: 09/17/17 10:09 Dose: 1 tab Budesonide/Formoterol Fumarate [Symbicort 160-4.5 Mcg Inhaler] 2 2 puff IH BID [facility] Last Admin: 09/16/17 11:18 Dose: Not Given Ondansetron HCl (Zofran Inj) 4 mg IVP Q4H PRN; Protocol PRN Reason: Nausea/Vomiting Last Admin: 09/15/17 17:24 Dose: 4 mg Pantoprazole Sodium (Protonix Ec Tab) 40 mg PO 0600 [facility] PRN Reason: Protocol Last Admin: 09/17/17 06:09 Dose: 40 mg Quetiapine Fumarate (Seroquel) 200 mg PO 2000 [facility] PRN Reason: Protocol Last Admin: 09/16/17 19:59 Dose: 200 mg Tiotropium [place] (Spiriva) 18 mcg IH DAILY [facility] PRN Reason: Protocol Last Admin: 09/17/17 10:09 Dose: 18 mcg Tramadol HCl (Ultram) 50 mg PO TID PRN; Protocol PRN Reason: Pain, severe (8-10) Last Admin: 09/11/17 09:39 Dose: 50 mg Valsartan (Diovan) 320 mg PO QAM [facility] PRN Reason: Protocol Last Admin: 09/17/17 10:12 Dose: Not Given Results - Vital Signs Recent Vital Signs: Last Vital Signs Temp 98.7 F 09/17/17 06:00 Pulse 90 09/17/17 06:00 Resp 20 09/17/17 09:15 BP 90/47 L 09/17/17 10:12 Pulse Ox 93 L 09/17/17 09:15 - Labs Result Diagrams: 09/17/17 11:30 09/14/17 06:30 Labs: Laboratory Results - last 24 hr 09/16/17 09/16/17 09/16/17 06:10 11:13 16:42 WBC RBC Hgb Hct MCV MCH MCHC RDW Plt Count MPV Gran % Lymph % (Auto) [place] % (Auto) Eos % (Auto) Baso % (Auto) Gran # Lymph # [place] # Eos # Baso # POC Glucose (mg/dL) 211 H 188 H 208 H 09/16/17 09/17/17 09/17/17 21:24 05:33 11:30 WBC 13.9 H RBC 3.78 Hgb 10.0 L Hct 32.4 L MCV 85.7 MCH 26.5 MCHC 30.9 L RDW 15.3 H Plt Count 435 MPV 8.8 Gran % 82.8 H Lymph % (Auto) 8.2 L [place] % (Auto) 8.5 H Eos % (Auto) 0.4 L Baso % (Auto) 0.1 Gran # 11.53 H Lymph # 1.1 L [place]kins # 1.2 H Eos # 0.1 Baso # 0.02 POC Glucose (mg/dL) 215 H 203 H 09/17/17 11:48 WBC RBC Hgb Hct MCV MCH MCHC RDW Plt Count MPV Gran % Lymph % (Auto) [place] % (Auto) Eos % (Auto) Baso % (Auto) Gran # Lymph # [place]kins # Eos # Baso # POC Glucose (mg/dL) 167 H Attending/Attestation - Attestation I have personally seen and examined this patient.: Yes I have fully participated in the care of the patient.: Yes I have reviewed all pertinent clinical information: Yes
[2017-09-17 16:34] VITALS: RESP 18
--- NOTE | 2017-09-17 23:36 | PN ---
DATE: SUBJECTIVE: This patient was seen and evaluated earlier today. The patient is tolerating the diet. PHYSICAL EXAMINATION VITAL SIGNS: Temperature is 99, blood pressure is 95/46, pulse is 101, respirations are 18 and O2 saturation is 90%. HEENT: Atraumatic. Anicteric. NECK: Supple. HEART: S1 and S2 heard. LUNGS: Bilateral air entry present. ABDOMEN: Soft. Surgical incision noticed. EXTREMITIES: No cyanosis. No clubbing. LABORATORY DATA: Hemoglobin of 10, hematocrit of 32.4, WBC is 13.9 and platelets of 435. 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 The patient had mildly elevated leukocytosis, had a repeat chest x-ray done, found to have limited left basilar airspace disease with significant improvement at the right base. Presently, not on any antibiotics. Would recommend incentive spirometry. Thank you very much for allowing us to participate in the care of the patient. Александр Azar MD
[2017-09-18] MEDS: Albuterol-Ipratrop 3 mg / 0.5 (3 ml) UD IH SCH ×3 (01:33→13:37)
[2017-09-18] MEDS: Pantoprazole 40 mg EC Tab PO SCH (05:13)
[2017-09-18] MEDS: Enoxaparin 40 mg Syringe SC SCH (05:37)
[2017-09-18] MEDS: Insulin Lispro (humaLOG) MEDIUM Coverage SC SCH ×3 (06:46→17:14)
[2017-09-18 07:06] LABS: BASO # 0.02 K/mm3 (0.0-2.0); BASO % 0.3 % (0.0-3.0); EOS # 0.1 (0.0-0.7); EOS % 1.3 % (1.5-5.0); GRAN # 6.09 (1.4-6.5); GRAN % 77.9 % (50.0-68.0); HEMATOCRIT 27.9 % (36.0-48.0); LYMPH # 0.9 (1.2-3.4); LYMPH % 10.9 % (22.0-35.0); MEAN CELL VOLUME 85.1 fl (80.0-105.0); MEAN CORPUSCULAR HEMOGLOBIN 26.2 pg (25.0-35.0); MEAN CORPUSCULAR HGB CONC 30.8 g/dl (31.0-37.0); MEAN PLATELET VOLUME 8.3 fl (7.0-11.0); MONO # 0.8 (0.1-0.6); MONO % 9.6 % (1.0-6.0); RED CELL DISTRIBUTION WIDTH 15.2 % (11.5-14.5); WHITE BLOOD COUNT 7.8 10^3/ul (4.5-11.0)
[2017-09-18 08:49] LABS: ALKALINE PHOSPHATASE 74 U/L (38-126); ALT/SGPT 38 U/L (7-56); AST/SGOT 16 U/L (14-36); BILIRUBIN,TOTAL 0.5 mg/dL (0.2-1.3); BLOOD UREA NITROGEN 23 mg/dL (7-21); CALCIUM 8.8 mg/dL (8.4-10.5); CARBON DIOXIDE 26 mmol/L (21-33); CHLORIDE 102 mmol/L (98-107); GFR AFRICAN-AMERICAN > 60; GLUCOSE,RANDOM 168 mg/dL (70-110); SODIUM 133 mmol/L (132-148); TOTAL PROTEIN 5.2 g/dL (5.8-8.3)
[2017-09-18] MEDS: Multivitamin Therapeutic Tab PO SCH (10:49)
[2017-09-18] MEDS: Tiotropium 18 mcg Cap For Inhalation IH SCH (10:49)
[2017-09-18] MEDS: Magnesium Oxide 400 mg Tab UD PO SCH (10:49)
[2017-09-18] MEDS: BUDESONIDE IH SCH (17:13)
[2017-09-18] MEDS: FORMOTEROL FUMARATE IH SCH (17:13)
[2017-09-18 17:29] VITALS: BP 87/48; PULSE 89; TEMP 98.7; O2SAT 96
--- NOTE | 2017-09-18 21:15 | PN ---
DATE: SUBJECTIVE: A 72-year-old white female in TCU, status post laparoscopic hemicolectomy for colon cancer, right sided and appendectomy for acute appendicitis. The patient is doing well. She has been doing physical therapy and occupational therapy. PHYSICAL EXAMINATION: VITAL SIGNS: Temperature is 99, heart rate is 101, blood pressure is 95/46. GENERAL: The patient is awake, alert, and oriented x3. This is a well-developed patient. ABDOMEN: Distended, but bowel sounds are normoactive. The patient is moving her bowels and having flatus. There is no nausea or vomiting. She is tolerating diet well. CHEST: Clear to auscultation and percussion. HEART: Regular sinus rhythm. EXTREMITIES: Without cyanosis, clubbing, or edema. ASSESSMENT AND PLAN: She apparently is being discharged today to be taken care of by her niece at home. She has received maximum physical therapy and occupational therapy. She will follow up with Dr. Anderson as an outpatient. Ryan Johnson MD
--- NOTE | 2017-09-19 02:32 | PN ---
DATE: SUBJECTIVE: The patient is currently in the TCU, bed 315, admitted here for surgery for deconditioning and rehabbing. The patient is slowly recovering post surgery for her colorectal malignancy. The patient is status post right hemicolectomy for a cecal lesion that was positive for malignancy, T3 N1b M0 clinically for adenocarcinoma of the colon. The patient just had the drain removed and michael removed, and she is progressing in physical therapy with help from the therapist as far as activities of daily living and therapy are concerned. A 12-system review was done of symptoms. The patient complains of tiredness and exhaustion very easily and shortness of breath on exertion, but otherwise has been holding her own. Denies any history of fevers, chills, nausea, vomiting, or hemoptysis. Bowels are moving well, although she is having loose bowel movement at this point in time, probably related to her surgical procedure that she had. PHYSICAL EXAMINATION: GENERAL: The patient is seen and examined in bed. She is resting. VITAL SIGNS: T-max is 97.1 oral, pulse rate is around 101, blood pressure is 90/55, O2 saturation of 91% on room air, repeat one at 2:00 is 96%. HEENT: Head is normocephalic and atraumatic. Conjunctivae pale. Sclerae are anicteric. Pupils are equally reactive to light and accommodation. Examination of the oropharynx reveals no oropharyngeal lesions. NECK: Supple. There is no adenopathy. LUNGS: Clear to percussion and auscultation. CARDIOPULMONARY: Examination of the cardiovascular system reveals PMI in the fifth intercostal space. S1 and S2 are normal. No gallop is heard. ABDOMEN: Mildly distended. Scar of recent surgery is noted. Scar is healing well. No definite masses per se are noted. Site where the drain site was removed was noted, appears to be okay. No rebound, rigidity, or guarding is noted. EXTREMITIES: Reveal no significant cyanosis or edema at this point in time. NEUROLOGIC: Higher functions are normal. No focal deficits are noted. There is no evidence of adenopathy in the neck, axilla, or groin. ASSESSMENT NOTES AND PLAN: Detailed discussion with the patient what our plan should be. Labs done today were reviewed, and my concern is about the drop in hemoglobin and hematocrit, which needs to be monitored. The patient may need home oxygen therapy since she had major abdominal surgery. She is going home and she will be ambulatory. Concern would be for deep vein thrombosis prophylaxis with hemoglobin and hematocrit dropping concern to see if the patient is stable enough for discharge. She may need to have CBC done again in the morning, and the question would be should the patient go home on subcutaneous prophylaxis with Lovenox due to the recent abdominal surgery. Based on the TNM staging, the patient will obviously benefit from systemic chemotherapy; since she is a diabetic, one would have to the pros and the cons as far as giving her oxaliplatin-based chemotherapy. The patient will also benefit from outpatient PET-CT scan to determine the extent of the disease post surgery, especially to look for disease outside the colon, in the liver, or elsewhere. I told the patient at this point in time, we will let her recover and recuperate at home, follow up as an outpatient in about 2 weeks. In the meantime, make sure before she gets discharged, have questions of outpatient oxygen, more importantly also the question of drop in hemoglobin and hematocrit should the patient be transfused before she is discharged. Routine post-exam instructions have been given to the patient. I will speak to the medical receptionist and the surgical rn involved in the care of the patient. Will speak to Dr. Anderson as well. All questions asked by the patient were answered to the best of my ability. I am going to give the patient also my card, my cell phone for the niece to discuss our treatment plans better. Abdoulaye Busch MD
--- NOTE | 2017-09-19 10:34 | DS ---
HISTORY OF PRESENT ILLNESS: The patient was admitted to TCU from [facility] and was discharged on 09/18/2017. The patient is status post severe anemia and was found to have right apple-core lesion of the cecum and acute appendicitis. The patient was taken to surgery by Dr. Anderson. She had a right hemicolectomy positive for poorly differentiated adenocarcinoma of the colon. Formal pathology of lymph nodes are pending. The patient did well postoperatively and she also did well in the TCU with physical therapy and occupational therapy. The patient was able to be discharged home in improved condition and will be followed as an outpatient. FINAL DISCHARGE DIAGNOSES: New onset of right colon adenocarcinoma, acute appendicitis, anemia of blood loss, and history of noninsulin dependent diabetes mellitus. Ryan Johnson MD
== END 2017-09-18 17:30 | disposition home health service (06) | DRG 949 ==
LOC: TRCU 15:26
PROVIDERS: ADMIT Internal Medicine; ATTEND Surgery
PROC: F07Z5FZ Bed Mobility Treatment using Assistive, Adaptive, Supportive or Protective Equipment (ICD-10-PCS; principal; 2017-09-12)
PROC: F07L6YZ Therapeutic Exercise Treatment of Musculoskeletal System - Lower Back / Lower Extremity using Other Equipment (ICD-10-PCS; 2017-09-12)
PROC: F07Z9FZ Gait Training/Functional Ambulation Treatment using Assistive, Adaptive, Supportive or Protective Equipment (ICD-10-PCS; 2017-09-14)
PROC: F07Z8FZ Transfer Training Treatment using Assistive, Adaptive, Supportive or Protective Equipment (ICD-10-PCS; 2017-09-14)
PROC: F08Z2FZ Grooming/Personal Hygiene Treatment using Assistive, Adaptive, Supportive or Protective Equipment (ICD-10-PCS; 2017-09-17)
PROC: 0HBRXZZ Excision of Toe Nail, External Approach (ICD-10-PCS; 2017-09-17)
DX: Z48.3 Aftercare following surgery for neoplasm (principal); C18.0 Malignant neoplasm of cecum; C77.2 Secondary and unspecified malignant neoplasm of intra-abdominal lymph nodes; K35.80 Unspecified acute appendicitis; J44.9 Chronic obstructive pulmonary disease, unspecified; E83.39 Other disorders of phosphorus metabolism; I10 Essential (primary) hypertension; D64.9 Anemia, unspecified; K21.9 Gastro-esophageal reflux disease without esophagitis; E11.9 Type 2 diabetes mellitus without complications; E78.5 Hyperlipidemia, unspecified; Z96.653 Presence of artificial knee joint, bilateral; E87.6 Hypokalemia; M19.90 Unspecified osteoarthritis, unspecified site; R63.4 Abnormal weight loss; F06.30 Mood disorder due to known physiological condition, unspecified; G47.00 Insomnia, unspecified; L60.3 Nail dystrophy; Z79.84 Long term (current) use of oral hypoglycemic drugs; Z87.891 Personal history of nicotine dependence; Z90.49 Acquired absence of other specified parts of digestive tract; Z87.440 Personal history of urinary (tract) infections

== ENCOUNTER 2018-02-01 07:47 | Day surgery (SDC) | payer MEDICARE, BC ==
[2018-02-01] MEDS ORDERED: Propofol 10 mg/ml Inj (20 ML) ONE (09:34)
[2018-02-01 10:10] VITALS: RESP 14
[2018-02-01] MEDS ORDERED: Sodium Chloride 0.9% 1,000 ML IV SCH (10:30)
[2018-02-01 11:06] VITALS: BP 115/63; PULSE 68; TEMP 98.5; O2SAT 95
[2018-02-01 11:09] VITALS: BMI 27.3
== END 2018-02-01 12:00 | disposition home or self-care (01) ==
LOC: ENDO 07:47
PROVIDERS: ATTEND Internal Medicine Gastroenterology
DX: K57.30 Diverticulosis of large intestine without perforation or abscess without bleeding (principal); K64.4 Residual hemorrhoidal skin tags; K64.8 Other hemorrhoids; Z98.0 Intestinal bypass and anastomosis status
CPT/HCPCS: 45378; 82948; J2001; J2704; J7040 ×2

== ENCOUNTER 2018-02-13 11:54 | Day surgery (SDC) | payer MEDICARE, BC ==
[2018-02-13 12:24] LABS: BASO # 0.03 K/mm3 (0.0-2.0); BASO % 0.5 % (0.0-3.0); EOS # 0.2 (0.0-0.7); EOS % 2.7 % (1.5-5.0); GRAN # 3.52 (1.4-6.5); GRAN % 62.3 % (50.0-68.0); HEMOGLOBIN 11.6 g/dL (12.0-16.0); LYMPH # 1.5 (1.2-3.4); LYMPH % 26.9 % (22.0-35.0); MEAN CELL VOLUME 86.3 fl (80.0-105.0); MEAN CORPUSCULAR HEMOGLOBIN 28.4 pg (25.0-35.0); MEAN PLATELET VOLUME 8.2 fl (7.0-11.0); MONO # 0.4 (0.1-0.6); MONO % 7.6 % (1.0-6.0); RBC 4.08 10^6/uL (3.5-6.1); RED CELL DISTRIBUTION WIDTH 14.3 % (11.5-14.5); WHITE BLOOD COUNT 5.7 10^3/ul (4.5-11.0)
[2018-02-13 12:32] LABS: BLOOD UREA NITROGEN 15 mg/dL (7-21); CALCIUM 9.9 mg/dL (8.4-10.5); GFR AFRICAN-AMERICAN > 60; GFR NON-AFRICAN AMERICAN > 60
[2018-02-13 12:37] LABS: INR 1.03 (0.93-1.08); PARTIAL THROMBOPLASTIN TIME 45.2 Seconds (25.1-36.5); PROTHROMBIN TIME 11.8 SECONDS (9.4-12.5)
[2018-02-13] MEDS ORDERED: Lidocaine 1% Inj (20ml) ONE (14:10)
[2018-02-13] MEDS ORDERED: Midazolam 2 MG/2 ML VIAL ONE ×2 (14:10→15:00)
[2018-02-13] MEDS ORDERED: Oxycodone/Acetaminophen 5/325 mg Tab PO PRN (15:18)
[2018-02-13] MEDS ORDERED: Sodium Chloride 0.45% 1,000 ML IV SCH (15:30)
[2018-02-13 16:15] VITALS: PULSE 64; RESP 18; TEMP 98.4
--- NOTE | 2018-02-13 17:04 | CT ---
PROCEDURE: CT guided right apical lung biopsy. HISTORY: 11 mm spiculated right apical nodule. Previous smoker. Recently diagnosed colon cancer PHYSICIAN(S): Bhavik Loving MD. TECHNIQUE: The relative risks and indications of the procedure were explained to the patient and consent obtained. The patient was placed prone on the CT scanner and preliminary images through the apices obtained. Conscious sedation and monitoring were provided throughout the procedure by a nurse. There is 11 mm spiculated nodule in the right apex posteromedially. This is a difficult biopsy given the intervening ribs and bones.. A oblique posterior approach was selected and the area prepped and draped in the usual sterile fashion. 1% Xylocaine was used to anesthetize the skin and soft tissues. A 18 gauge guiding needle was advanced into the 11 mm right apical nodule. Its position was confirmed with CT. Using coaxial technique, multiple core biopsies were obtained. The postprocedure images show no evidence of large pneumothorax or significant hemorrhage P. IMPRESSION: 1. CT-guided right apical lung biopsy as described above.
--- NOTE | 2018-02-13 17:39 | RAD ---
HISTORY: rt lung bx COMPARISON: 01/25/2018. FINDINGS: LUNGS: The lungs are clear. PLEURA: Small right pleural effusion versus pleural thickening, no pneumothorax apparent. CARDIOVASCULAR: Normal. OSSEOUS STRUCTURES: Within normal limits for the patient's age. VISUALIZED UPPER ABDOMEN: Normal. OTHER FINDINGS: None. IMPRESSION: No acute findings.
[2018-02-13 18:42] VITALS: BP 137/68; O2SAT 95
== END 2018-02-13 18:36 | disposition home or self-care (01) ==
LOC: SDS 11:54
PROVIDERS: ATTEND Radiology Vascular & Interventional Radiology
DX: R91.1 Solitary pulmonary nodule (principal); C18.9 Malignant neoplasm of colon, unspecified; I10 Essential (primary) hypertension; E11.9 Type 2 diabetes mellitus without complications; Z79.84 Long term (current) use of oral hypoglycemic drugs; Z87.891 Personal history of nicotine dependence
CPT/HCPCS: 32405; 36415; 71045; 77012; 80048; 85025; 85610; 85730; 88305; J2250; J2405; J3010; J7030

== ENCOUNTER 2018-05-26 13:45 | Emergency (ER) | payer MEDICARE, BC ==
[2018-05-26 13:46] VITALS: BMI 27.3
[2018-05-26 13:56] VITALS: RESP 18; TEMP 98.2; O2SAT 98
--- NOTE | 2018-05-26 14:34 | ED PDOC ---
Arrival/HPI - General Historian: Patient - History of Present Illness Time/Duration: > week Symptom Course: Worsening - General Chief Complaint: Abnormal Skin Integrity Time Seen by Provider: 05/26/18 14:10 - History of Present Illness Narrative History of Present Illness (Text): 05/26/18 14:30 Patient is a 73 year old female with past medical history of DM, HTN, HLD, COPD , GERD who presents to the ED for left forearm bruising. Patient states that she fell 6 days ago and bruised her left arm. She also has small abrasions and a skin tear. She has been cleaning the affected area and applying neosporin on it. Patient states that the area in question doesn't appear to be healing. She denies any drainage but states that the color is more yellow/red while the other abrasions are healing appropriately. She denies any fevers, chills, forearm tenderness. (Danielle Simpson) Past Medical History - Provider Review Nursing Documentation Reviewed: Yes - Infectious Disease Hx of Infectious Diseases: None - Tetanus Immunization Tetanus Immunization: Unknown - Reproductive Menopause: Yes - Cardiac Hx Hypertension: Yes Hx Pacemaker: No - Pulmonary Hx Chronic Obstructive Pulmonary Disease (COPD): Yes (no Home O2) - Neurological Hx Paralysis: No - HEENT Hx Cataracts: Yes (removal b/l) - Renal Hx Renal Disorder: No - Endocrine/Metabolic Hx Diabetes Mellitus Type 2: Yes - Hematological/Oncological Hx Blood Transfusions: No - Integumentary Hx Dermatological Disorder: No - Musculoskeletal/Rheumatological Hx Musculoskeletal Disorders: Yes - Gastrointestinal Hx Gastrointestinal Disorders: Yes (gastritis, gas,) Hx Diverticulitis: Yes Hx Gastroesophageal Reflux: Yes Other/Comment: "can't eat a lot of things" pt stated, has been alternating from normal bm's to diarrhea, for about 6 months - Genitourinary/Gynecological Hx Genitourinary Disorders: Yes Hx Urinary Tract Infection: Yes (dx 3 days ago on amoxicillin x2 days) Other/Comment: bladder sling procedure, dropped and became "heavy"c/o feels like she has to urinate and can't - Psychiatric Hx Emotional Abuse: No Hx Physical Abuse: No Hx Substance Use: No - Surgical History Hx Appendectomy: Yes Other/Comment: Lung Sx - Anesthesia Hx Anesthesia Reactions: No Hx Malignant Hyperthermia: No - Suicidal Assessment Feels Threatened In Home Enviroment: No Family/Social History Family/Social History: Unknown Family HX Smoking Status: Former Smoker Hx Alcohol Use: No Hx Substance Use: No Hx Substance Use Treatment: No Allergies/Home Meds Allergies/Adverse Reactions: Allergies levofloxacin [From Levaquin] Allergy (Severe, Verified 05/26/18 13:55) PAIN Home Medications: Home Meds Medication Instructions Recorded Confirmed Montelukast [Singulair] 10 mg PO HS 12/14/13 05/26/18 amLODIPine [Norvasc] 5 mg PO QAM 05/26/15 05/26/18 Tiotropium [Spiriva] 18 mcg IH DAILY 08/19/15 05/26/18 ALPRAZolam [Xanax] 1 mg PO TID PRN 01/07/16 05/26/18 Aspirin [Ecotrin] 81 mg PO DAILY 01/07/16 05/26/18 Ferrous Fumarate [Sophy-Sequel] 500 mg PO DAILY 01/07/16 05/26/18 Magnesium Oxide [Magnesium] 250 mg PO DAILY 01/07/16 05/26/18 Multivitamin [One Daily] 1 tab PO DAILY 01/07/16 05/26/18 Pravastatin Sodium [Pravachol] 20 mg PO DAILY 01/07/16 05/26/18 Valsartan [Diovan] 320 mg PO QAM 01/07/16 05/26/18 Omeprazole [Prilosec] 20 mg PO DAILY 02/02/16 05/26/18 Bupropion HCl [Bupropion Xl] 300 mg PO DAILY 06/07/17 05/26/18 Meloxicam [Mobic] 15 mg PO DAILY PRN 06/07/17 05/26/18 QUEtiapine [Seroquel] 200 mg PO HS 06/07/17 05/26/18 Vortioxetine Hydrobromide 20 mg PO DAILY 06/07/17 05/26/18 [Trintellix] Cholestyramine [Questran] 1 packet PO DAILY 01/22/18 05/26/18 [place]-3/Dha/Epa/Fish Oil [Fish Oil 650 mg PO DAILY 01/22/18 05/26/18 [place]-3 EC 1,200 mg] MetFORMIN [glucoPHAGE] 1,000 mg PO BID 02/07/18 05/26/18 Physical Exam Temperature: Afebrile Blood Pressure: Hypertensive Pulse: Regular Respiratory Rate: Normal Appearance: Positive for: Well-Appearing, Comfortable Pain Distress: None Mental Status: Positive for: Alert and Oriented X 3 - Systems Exam Head: Present: Atraumatic, Normocephalic Pupils: Present: PERRL Extroacular Muscles: Present: EOMI, Other (Stye on left upper eye lid) Conjunctiva: Present: Normal Mouth: Present: Moist Mucous Membranes Neck: Present: Normal Range of Motion Respiratory/Chest: Present: Good Air Exchange Cardiovascular: Present: Regular Rate and Rhythm Abdomen: No: Tenderness, Distention Upper Extremity: Present: Other (Left forarm: small healing abrasions and bruises; skin tear, no active drainage, non-tender to palpations, distal pulses intact, ROM within normal limits) Lower Extremity: Present: Normal Inspection Skin: Present: Warm, Dry, Normal Color Psychiatric: Present: Alert, Oriented x 3 Vital Signs Temp Pulse Resp BP Pulse Ox 05/26/18 15:00 81 18 134/73 98 05/26/18 13:51 98.2 F 79 18 156/80 H 98 Medical Decision Making ED Course and Treatment: 05/26/18 14:35 Patient is a 73 year old female with past medical history of DM, HTN, HLD, GERD , COPD who presents to the emergency department for left forarm bruising, she is s/p fall 6 days ago. Forearm is non-tender to palpation, ROM within normal limits. Will order tetanus shot, clean and apply bacitracin to the skin tear. Will also prescribe Amoxicillin 500mg Q12H x 7 days. Instructed patient to follow up with PMD within 2-3 days. (Danielle Simpson) Seen and examined with resident. 73 year old F p/w abrasion to arm after fall, most improving but one abrasion with developoing erythema. On exam, no bony tenderness and full ROM and no swelling. (Pastor Mcnamara) - Medication Orders Current Medication Orders: Discontinued Medications Tetanus/Reduced Diphtheria/Acell Pertussis (Boostrix Vaccine Inj) 0.5 ml IM .ONCE ONE Stop: 05/26/18 14:53 Last Admin: 05/26/18 14:58 Dose: 0.5 ml Immunization Registry Document 05/26/18 14:58 EQ (Rec: 05/26/18 14:58 EQ [id number] Immunization Registry Consent Date 09/06/17 Disposition/Present on Arrival - Present on Arrival Any Indicators Present on Arrival: No History of DVT/PE: No History of Uncontrolled Diabetes: No Urinary Catheter: No History of Decub. Ulcer: No History Surgical Site Infection Following: None - Disposition Have Diagnosis and Disposition been Completed?: Yes Disposition Time: 14:39 Patient Plan: Discharge - Disposition Diagnosis: Skin tear of left upper extremity Disposition: HOME/ ROUTINE Condition: GOOD Discharge Instructions (ExitCare): Wound Care (DC) Additional Instructions: Please take antibiotics as prescribed Apply Bacitracin and dress forearm daily Please follow up with PMD within 2-3 days Prescriptions: Amoxicillin 500 mg PO Q12H #14 tablet Forms: [employer] (Kazakh)
[2018-05-26] MEDS ORDERED: TDAP Vaccine 0.5 mL Syr IM ONE (14:52)
[2018-05-26 15:27] VITALS: BP 134/73; PULSE 81
== END 2018-05-26 15:00 | disposition home or self-care (01) ==
LOC: ED 13:45
DX: S51.812A Laceration without foreign body of left forearm, initial encounter (principal); W19.XXXA Unspecified fall, initial encounter; Y92.9 Unspecified place or not applicable; Z23 Encounter for immunization

== ENCOUNTER 2018-10-18 16:46 | Emergency (ER) | payer MEDICARE, BC ==
[2018-10-18 16:47] VITALS: BMI 27.3
[2018-10-18 17:04] VITALS: BP 147/80; PULSE 98; RESP 18; TEMP 98.7; O2SAT 94
[2018-10-18] MEDS ORDERED: Hydrocortisone Val 0.2% Cr 15 GM TUBE TOP ONE (17:29)
[2018-10-18] MEDS ORDERED: Clotrimazole 1% Cream(30 gm) TOP ONE (17:29)
--- NOTE | 2018-10-18 17:35 | ED PDOC ---
Arrival/HPI - General Chief Complaint: Abnormal Skin Integrity Time Seen by Provider: 10/18/18 16:49 Historian: Patient - History of Present Illness Narrative History of Present Illness (Text): 10/18/18 17:31 73 yo F w/ PMH of Diabetes and Hypertension, presents complaining of non- pruritic and painless rash to her L mid back, under both breast, b/l upper inner thighs and RLE which she noticed today. Reports no fever, chills, SOB, dyspnea, lesions to her mouth, taking any new medications, new foods, changes in soaps or lotions. Reports that her FS earlier today was 177. Past Medical History - Infectious Disease Hx of Infectious Diseases: None - Tetanus Immunization Tetanus Immunization: Unknown - Cardiac Hx Hypertension: Yes Hx Pacemaker: No - Pulmonary Hx Chronic Obstructive Pulmonary Disease (COPD): Yes (no Home O2) - Neurological Hx Paralysis: No - HEENT Hx Cataracts: Yes (removal b/l) - Renal Hx Renal Disorder: No - Endocrine/Metabolic Hx Diabetes Mellitus Type 2: Yes - Hematological/Oncological Hx Blood Transfusions: No - Integumentary Hx Dermatological Disorder: No - Musculoskeletal/Rheumatological Hx Musculoskeletal Disorders: Yes - Gastrointestinal Hx Gastrointestinal Disorders: Yes (gastritis, gas,) Hx Diverticulitis: Yes Hx Gastroesophageal Reflux: Yes Other/Comment: "can't eat a lot of things" pt stated, has been alternating from normal bm's to diarrhea, for about 6 months - Genitourinary/Gynecological Hx Genitourinary Disorders: Yes Hx Urinary Tract Infection: Yes (dx 3 days ago on amoxicillin x2 days) Other/Comment: bladder sling procedure, dropped and became "heavy"c/o feels like she has to urinate and can't - Psychiatric Hx Emotional Abuse: No Hx Physical Abuse: No Hx Substance Use: No - Surgical History Hx Appendectomy: Yes Other/Comment: Lung Sx - Anesthesia Hx Anesthesia: Yes Hx Anesthesia Reactions: No Hx Malignant Hyperthermia: No - Suicidal Assessment Feels Threatened In Home Enviroment: No Family/Social History Family/Social History: No Known Family HX Smoking Status: Former Smoker Hx Alcohol Use: No Hx Substance Use: No Hx Substance Use Treatment: No Allergies/Home Meds Allergies/Adverse Reactions: Allergies levofloxacin [From Levaquin] Allergy (Severe, Verified 05/26/18 13:55) PAIN Home Medications: Home Meds Medication Instructions Recorded Confirmed Montelukast [Singulair] 10 mg PO HS 12/14/13 05/26/18 amLODIPine [Norvasc] 5 mg PO QAM 05/26/15 05/26/18 Tiotropium [Spiriva] 18 mcg IH DAILY 08/19/15 05/26/18 ALPRAZolam [Xanax] 1 mg PO TID PRN 01/07/16 05/26/18 Aspirin [Ecotrin] 81 mg PO DAILY 01/07/16 05/26/18 Ferrous Fumarate [Sophy-Sequel] 500 mg PO DAILY 01/07/16 05/26/18 Magnesium Oxide [Magnesium] 250 mg PO DAILY 01/07/16 05/26/18 Multivitamin [One Daily] 1 tab PO DAILY 01/07/16 05/26/18 Pravastatin Sodium [Pravachol] 20 mg PO DAILY 01/07/16 05/26/18 Valsartan [Diovan] 320 mg PO QAM 01/07/16 05/26/18 Omeprazole [Prilosec] 20 mg PO DAILY 02/02/16 05/26/18 Bupropion HCl [Bupropion Xl] 300 mg PO DAILY 06/07/17 05/26/18 Meloxicam [Mobic] 15 mg PO DAILY PRN 06/07/17 05/26/18 QUEtiapine [Seroquel] 200 mg PO HS 06/07/17 05/26/18 Vortioxetine Hydrobromide 20 mg PO DAILY 06/07/17 05/26/18 [Trintellix] Cholestyramine [Questran] 1 packet PO DAILY 01/22/18 05/26/18 [place]-3/Dha/Epa/Fish Oil [Fish Oil 650 mg PO DAILY 01/22/18 05/26/18 [place]-3 EC 1,200 mg] MetFORMIN [glucoPHAGE] 1,000 mg PO BID 02/07/18 05/26/18 Review of Systems - Review of Systems Constitutional: absent: Fatigue, Fevers Respiratory: absent: SOB, Cough Cardiovascular: absent: Chest Pain, Palpitations Gastrointestinal: absent: Nausea, Vomiting Musculoskeletal: absent: Arthralgias, Back Pain, Neck Pain Skin: Rash, Skin Lesions. absent: Pruritis Neurological: absent: Headache, Dizziness, Focal Weakness Physical Exam Vital Signs Temp Pulse Resp BP Pulse Ox 10/18/18 16:47 98.7 F 98 H 18 147/80 94 L Temperature: Afebrile Blood Pressure: Hypertensive Pulse: Regular Respiratory Rate: Normal Appearance: Positive for: Well-Appearing, Non-Toxic, Comfortable Pain Distress: None Mental Status: Positive for: Alert and Oriented X 3 - Systems Exam Head: Present: Atraumatic, Normocephalic Pupils: Present: PERRL Extroacular Muscles: Present: EOMI Conjunctiva: Present: Normal Mouth: Present: Moist Mucous Membranes Neck: Present: Normal Range of Motion Respiratory/Chest: Present: Clear to Auscultation, Good Air Exchange. No: Respiratory Distress, Accessory Muscle Use Cardiovascular: Present: Regular Rate and Rhythm, Normal S1, S2. No: Murmurs Abdomen: No: Tenderness, Distention, Peritoneal Signs Back: Present: Normal Inspection Upper Extremity: Present: Normal Inspection. No: Cyanosis, Edema Lower Extremity: Present: Normal Inspection. No: Edema Neurological: Present: GCS=15, CN II-XII Intact, Speech Normal Skin: Present: Warm, Dry, Rashes (+erythematous non-tender flat circular appearing rash to the L mid back, under b/l breast, upper inner thigh, RLE, some with central clearing), Normal Color, Other (+white-brown colored oval shaped non-tender 3 cm plaque noted to the L mid back) Psychiatric: Present: Alert, Oriented x 3, Normal Insight, Normal Concentration Medical Decision Making ED Course and Treatment: 10/18/18 17:35 Diagnosis of tinea corporis discussed with the patient. Patient advised to follow up skin lesion noted to her L mid back with a senior data developer and have a formal biopsy done of that lesion. Patient admits that she has had that lesion for several years and that it is not new, she was told in the past that is is harmless. Advised to follow up with primary care physician and derm referral provided in 1-2 days without fail. Encouraged adequate glucose monitoring and control with diet. Advised to take medication as prescribed. Return to the emergency room at any time for any new or worsening symptoms. Patient states she fully agrees with and understands discharge instructions. States that she agrees with the plan and disposition. Verbalized and repeated discharge instructions and plan. I have given the patient opportunity to ask any additional questions. - PA / COMPTOMETER OPERATOR / Resident Statement /DO has reviewed & agrees with the documentation as recorded. Disposition/Present on Arrival - Present on Arrival Any Indicators Present on Arrival: No History of DVT/PE: No History of Uncontrolled Diabetes: No Urinary Catheter: No History of Decub. Ulcer: No History Surgical Site Infection Following: None - Disposition Have Diagnosis and Disposition been Completed?: Yes Diagnosis: Tinea corporis Disposition: HOME/ ROUTINE Disposition Time: 17:30 Patient Plan: Discharge Condition: STABLE Discharge Instructions (ExitCare): Ringworm (DC) Additional Instructions: Thank you for letting us take care of you today. You were treated for tinea corporis. The emergency medical care you received today was directed at your acute symptoms. If you were prescribed any medication, please fill it and take as directed. It may take several days for your symptoms to resolve. Return to the Emergency Department if your symptoms worsen, do not improve, or if you have any other problems. Please contact your doctor in 2 days for re-evaluation and follow up / or call one of the physicians/clinics you have been referred to that are listed on the Patient Visit Information form that is included in your discharge packet. Bring any paperwork you were given at discharge with you along with any medications you are taking to your follow up visit. Our treatment cannot replace ongoing medical care by a primary care provider (PCP) outside of the emergency department. Thank you for allowing the [facility] [employer] team to be part of your care today. Prescriptions: Clotrimazole 1% Cream [Lotrimin 1%] 30 applic EXT BID #1 tube Hydrocortisone Pam 0.2% Cr [Westcort] 1 ea TP BID #15 tube Referrals: Jacoby Mera MD [Staff Provider] - Follow up with primary
== END 2018-10-18 18:14 | disposition home or self-care (01) ==
LOC: ED 16:46
DX: B35.4 Tinea corporis (principal)

== ENCOUNTER 2018-10-21 09:52 | Emergency (ER) | payer MEDICARE, BC ==
[2018-10-21 09:53] VITALS: BMI 27.3
== END 2018-10-21 10:09 | disposition left against medical advice (07) ==
LOC: ED 09:52
DX: Z02.89 Encounter for other administrative examinations (principal); R21 Rash and other nonspecific skin eruption

== ENCOUNTER 2018-11-03 13:36 | Emergency (ER) | payer MEDICARE, BC ==
[2018-11-03 13:36] VITALS: BMI 27.3
[2018-11-03 13:48] VITALS: RESP 18
--- NOTE | 2018-11-03 14:02 | ED PDOC ---
Arrival/HPI - General Chief Complaint: Abdominal Pain Historian: Patient - History of Present Illness Time/Duration: Other (3-4 weeks) Symptom Onset: Gradual Symptom Course: Unchanged Quality: Aching Severity Level: Mild Activities at Onset: Rest Associated Symptoms (Text): 11/03/18 14:00 Patient complains of a 3 to four-week history of right lower quadrant abdominal pain along with right flank pain. No nausea vomiting or diarrhea. No fever or chills. No genitourinary symptoms. She has maintained a good appetite. No weight loss. There is a history of an appendectomy approximately 14 months ago. History of lung cancer. She appears comfortable and in no distress. She reports that she spoke with a family member who directed her to the emergency department today. Past Medical History - Infectious Disease Hx of Infectious Diseases: None - Tetanus Immunization Tetanus Immunization: Unknown - Cardiac Hx Hypertension: Yes Hx Pacemaker: No - Pulmonary Hx Chronic Obstructive Pulmonary Disease (COPD): Yes (no Home O2) - Neurological Hx Paralysis: No - HEENT Hx Cataracts: Yes (removal b/l) - Renal Hx Renal Disorder: No - Endocrine/Metabolic Hx Diabetes Mellitus Type 2: Yes - Hematological/Oncological Hx Blood Transfusions: No Hx Cancer: Yes (Colon CA) - Integumentary Hx Dermatological Disorder: No - Musculoskeletal/Rheumatological Hx Musculoskeletal Disorders: Yes - Gastrointestinal Hx Gastrointestinal Disorders: Yes (gastritis, gas,) Hx Diverticulitis: Yes Hx Gastroesophageal Reflux: Yes Other/Comment: "can't eat a lot of things" pt stated, has been alternating from normal bm's to diarrhea, for about 6 months - Genitourinary/Gynecological Hx Genitourinary Disorders: Yes Hx Urinary Tract Infection: Yes (dx 3 days ago on amoxicillin x2 days) Other/Comment: bladder sling procedure, dropped and became "heavy"c/o feels like she has to urinate and can't - Psychiatric Hx Emotional Abuse: No Hx Physical Abuse: No Hx Substance Use: No - Surgical History Hx Appendectomy: Yes Other/Comment: Lung Sx. Colon Sx - Anesthesia Hx Anesthesia: Yes Hx Anesthesia Reactions: No Hx Malignant Hyperthermia: No - Suicidal Assessment Feels Threatened In Home Enviroment: No Family/Social History - Physician Review Nursing Documentation Reviewed: Yes Family/Social History: Unknown Family HX Smoking Status: Former Smoker (quit many years ago) Hx Alcohol Use: No Hx Substance Use: No Hx Substance Use Treatment: No Allergies/Home Meds Allergies/Adverse Reactions: Allergies levofloxacin [From Levaquin] Allergy (Severe, Verified 11/03/18 13:48) PAIN Home Medications: Home Meds Medication Instructions Recorded Confirmed Montelukast [Singulair] 10 mg PO HS 12/14/13 05/26/18 amLODIPine [Norvasc] 5 mg PO QAM 05/26/15 05/26/18 Tiotropium [Spiriva] 18 mcg IH DAILY 08/19/15 05/26/18 ALPRAZolam [Xanax] 1 mg PO TID PRN 01/07/16 05/26/18 Aspirin [Ecotrin] 81 mg PO DAILY 01/07/16 05/26/18 Ferrous Fumarate [Sophy-Sequel] 500 mg PO DAILY 01/07/16 05/26/18 Magnesium Oxide [Magnesium] 250 mg PO DAILY 01/07/16 05/26/18 Multivitamin [One Daily] 1 tab PO DAILY 01/07/16 05/26/18 Pravastatin Sodium [Pravachol] 20 mg PO DAILY 01/07/16 05/26/18 Valsartan [Diovan] 320 mg PO QAM 01/07/16 05/26/18 Omeprazole [Prilosec] 20 mg PO DAILY 02/02/16 05/26/18 Bupropion HCl [Bupropion Xl] 300 mg PO DAILY 06/07/17 05/26/18 Meloxicam [Mobic] 15 mg PO DAILY PRN 06/07/17 05/26/18 QUEtiapine [Seroquel] 200 mg PO HS 06/07/17 05/26/18 Vortioxetine Hydrobromide 20 mg PO DAILY 06/07/17 05/26/18 [Trintellix] Cholestyramine [Questran] 1 packet PO DAILY 01/22/18 05/26/18 [place]-3/Dha/Epa/Fish Oil [Fish Oil 650 mg PO DAILY 01/22/18 05/26/18 [place]-3 EC 1,200 mg] MetFORMIN [glucoPHAGE] 1,000 mg PO BID 02/07/18 05/26/18 Review of Systems - Physician Review All systems were reviewed & negative as marked: Yes - Review of Systems Constitutional: Normal Respiratory: Normal Cardiovascular: Normal Gastrointestinal: Abdominal Pain. absent: Constipation, Diarrhea, Nausea, Vomiting, Anorexia Genitourinary Female: absent: Dysuria, Frequency, Hematuria Neurological: absent: Headache, Dizziness Physical Exam Vital Signs Temp Pulse Resp BP Pulse Ox 11/03/18 13:44 98.2 F 102 H 18 156/80 H 96 Temperature: Afebrile Blood Pressure: Hypertensive Pulse: Regular Respiratory Rate: Normal Appearance: Positive for: Well-Appearing, Non-Toxic, Comfortable Pain Distress: None Mental Status: Positive for: Alert and Oriented X 3 - Systems Exam Head: Present: Atraumatic, Normocephalic Pupils: Present: PERRL Extroacular Muscles: Present: EOMI Conjunctiva: Present: Normal Mouth: Present: Moist Mucous Membranes Pharnyx: No: ERYTHEMA, EXUDATE, TONSILS ENLARGED Neck: Present: Normal Range of Motion Respiratory/Chest: Present: Clear to Auscultation, Good Air Exchange. No: Respiratory Distress, Accessory Muscle Use Cardiovascular: Present: Regular Rate and Rhythm, Normal S1, S2. No: Murmurs Abdomen: Present: Scars. No: Tenderness, Distention, Peritoneal Signs, Rebound, Guarding Back: Present: Normal Inspection. No: CVA Tenderness, Midline Tenderness, Paraspinal Tenderness Upper Extremity: Present: Normal Inspection. No: Cyanosis, Edema Lower Extremity: Present: Normal Inspection. No: Edema Neurological: Present: GCS=15, CN II-XII Intact, Speech Normal, Motor Func Grossly Intact Skin: Present: Warm, Dry, Normal Color. No: Rashes Psychiatric: Present: Alert, Oriented x 3, Normal Insight, Normal Concentration Medical Decision Making ED Course and Treatment: 11/03/18 14:13 EKG shows normal sinus rhythm rate approximately 95 with poor R-wave progression and no acute ST or T-wave changes. PROCEDURE: CT Abdomen and Pelvis without intravenous contrast Dictator : Sabas Rodas MD Report Date : 11/03/2018 15:13:41 IMPRESSION: There is mural thickening in the sigmoid colon, possible colitis. The study is otherwise unremarkable 11/03/18 15:[address] scan shows left sided colitis, but the patient's pain is all right sided. Her alkaline phosphatase is mildly elevated. Her blood sugar is elevated. She had been on metformin, but this was stopped by her PMD. I suggested that she follow up again with her PMD to talk about starting her metformin again. I also suggested follow-up with her dinkey engine mechanic. Follow up in the emergency department as needed. No antibiotics are indicated at this time. She does not need pain medication. - RAD Interpretation Radiology Orders: 11/03/18 13:59 ABD & PELVIS W/O PO OR IV CONT [CT] Stat Disposition/Present on Arrival - Present on Arrival Any Indicators Present on Arrival: No History of DVT/PE: No History of Uncontrolled Diabetes: No Urinary Catheter: No History of Decub. Ulcer: No History Surgical Site Infection Following: None - Disposition Have Diagnosis and Disposition been Completed?: Yes Diagnosis: Abdominal pain, Hyperglycemia, Elevated alkaline phosphatase level Disposition: HOME/ ROUTINE Disposition Time: 15:43 Patient Plan: Discharge Condition: GOOD Discharge Instructions (ExitCare): Hyperglycemia, Adult, Acute Abdomen (Belly Pain) Additional Instructions: Follow-up with PMD and dinkey engine mechanic. Follow up in ER as needed. Symptomatic treatment. Referrals: Viet BEASLEY,Emory Connelly MD [Primary Care Provider] - Follow up with primary Forms: [employer] (Turkish)
[2018-11-03 14:38] LABS: URINE BILIRUBIN NEGATIVE (NEGATIVE); URINE BLOOD NEGATIVE (NEGATIVE); URINE GLUCOSE (UA) NEGATIVE (NEGATIVE); URINE LEUKOCYTE ESTERASE NEGATIVE Leu/uL (NEGATIVE); URINE PROTEIN NEGATIVE mg/dL (<30 mg/dL); URINE UROBILINOGEN 0.2 E.U./dL (<1 E.U./dL)
[2018-11-03 14:40] LABS: BASO # 0.04 K/mm3 (0.0-2.0); BASO % 0.6 % (0.0-3.0); EOS # 0.4 (0.0-0.7); EOS % 6.6 % (1.5-5.0); GRAN # 3.96 (1.4-6.5); GRAN % 59.3 % (50.0-68.0); HEMOGLOBIN 13.3 g/dL (12.0-16.0); LYMPH # 1.7 (1.2-3.4); LYMPH % 25.7 % (22.0-35.0); MEAN CELL VOLUME 89.4 fl (80.0-105.0); MEAN CORPUSCULAR HEMOGLOBIN 30.6 pg (25.0-35.0); MEAN CORPUSCULAR HGB CONC 34.3 g/dl (31.0-37.0); MEAN PLATELET VOLUME 9.4 fl (7.0-11.0); MONO # 0.5 (0.1-0.6); MONO % 7.8 % (1.0-6.0); RBC 4.34 10^6/uL (3.5-6.1); RED CELL DISTRIBUTION WIDTH 13.2 % (11.5-14.5); WHITE BLOOD COUNT 6.7 10^3/uL (4.5-11.0)
[2018-11-03 14:50] LABS: URINE APPEARANCE CLEAR (CLEAR); URINE COLOR YELLOW (YELLOW)
[2018-11-03 15:05] LABS: INR 1.15; PARTIAL THROMBOPLASTIN TIME 35.3 Seconds (25.1-36.5); PROTHROMBIN TIME 13.2 SECONDS (9.4-12.5)
--- NOTE | 2018-11-03 15:17 | CT ---
Date of service: 11/03/2018 PROCEDURE: CT Abdomen and Pelvis without intravenous contrast HISTORY: RLQ pain S/P AP COMPARISON: 01/25/2018 TECHNIQUE: Without contrast.. Contrast dose: Radiation dose: Total exam DLP = 829.5 mGy-cm. This CT exam was performed using one or more of the following dose reduction techniques: Automated exposure control, adjustment of the mA and/or kV according to patient size, and/or use of iterative reconstruction technique. FINDINGS: LOWER THORAX: Unremarkable. LIVER: Unremarkable. No gross lesion or ductal dilatation. GALLBLADDER AND BILE DUCTS: Unremarkable. PANCREAS: Unremarkable. No gross lesion or ductal dilatation. SPLEEN: Unremarkable. ADRENALS: Unremarkable. No mass. KIDNEYS AND URETERS: Unremarkable. No hydronephrosis. No solid mass. VASCULATURE: Unremarkable. No aortic aneurysm. Aortic calcification BOWEL: There is mural thickening in the sigmoid colon, possible colitis. No change in ventral hernia. Suture line in the ascending colon APPENDIX: Unremarkable. Normal appendix. PERITONEUM: Unremarkable. No free fluid. No free air. LYMPH NODES: Unremarkable. No enlarged lymph nodes. BLADDER: Unremarkable. REPRODUCTIVE: Unremarkable. BONES: 7 mm of anterior subluxation of L4 over L5 with disc degeneration. OTHER FINDINGS: None. IMPRESSION: There is mural thickening in the sigmoid colon, possible colitis. The study is otherwise unremarkable
[2018-11-03 15:24] LABS: ALB/GLOB RATIO 1.2 (1.1-1.8); ALBUMIN 3.9 g/dL (3.0-4.8); ALT/SGPT 25 U/L (7-56); AST/SGOT 15 U/L (14-36); BLOOD UREA NITROGEN 14 mg/dL (7-21); CALCIUM 10.2 mg/dL (8.4-10.5); GFR NON-AFRICAN AMERICAN > 60; LIPASE 27 U/L (23-300)
[2018-11-03 16:05] VITALS: BP 138/76; PULSE 88; TEMP 98; O2SAT 99
--- NOTE | 2018-11-04 10:41 | CARD ---
APPROVED REPORT Date of service: 11/03/2018 EKG Measurement Heart [id number] <Conclusion> Normal sinus rhythm Low voltage QRS Poor R Progression V1-V3.
== END 2018-11-03 16:06 | disposition home or self-care (01) ==
LOC: ED 13:36
DX: E11.65 Type 2 diabetes mellitus with hyperglycemia (principal); R74.8 Abnormal levels of other serum enzymes; R10.9 Unspecified abdominal pain; I10 Essential (primary) hypertension; J44.9 Chronic obstructive pulmonary disease, unspecified; K21.9 Gastro-esophageal reflux disease without esophagitis; Z85.118 Personal history of other malignant neoplasm of bronchus and lung; Z85.038 Personal history of other malignant neoplasm of large intestine; Z87.891 Personal history of nicotine dependence

== ENCOUNTER 2018-11-16 07:43 | Outpatient (CLI) | payer MEDICARE, BC | END 2018-11-16 07:44 | disposition home or self-care (01) | LOC: LAB 07:43 ==

== ENCOUNTER 2019-01-06 13:38 | Outpatient (CLI) | payer MEDICARE, BC | END 2019-01-06 13:39 | disposition home or self-care (01) | LOC: RAD 13:38 ==

== ENCOUNTER 2019-01-14 08:58 | Outpatient (CLI) | payer MEDICARE, BC | END 2019-01-14 08:59 | disposition home or self-care (01) | LOC: RAD 08:58 ==

== ENCOUNTER 2019-01-16 05:20 | Outpatient (CLI) | payer MEDICARE, BC | END 2019-01-16 05:21 | disposition home or self-care (01) | LOC: PET-BROA 05:20 | DX: R91.1 Solitary pulmonary nodule (principal); R91.8 Other nonspecific abnormal finding of lung field ==

== ENCOUNTER 2019-02-06 07:36 | Outpatient (CLI) | payer MEDICARE, BC | END 2019-02-06 07:37 | disposition home or self-care (01) | LOC: LAB 07:36 | DX: D50.9 Iron deficiency anemia, unspecified (principal); E78.5 Hyperlipidemia, unspecified; E03.9 Hypothyroidism, unspecified; E11.9 Type 2 diabetes mellitus without complications ==

== ENCOUNTER 2019-03-21 09:35 | Day surgery (SDC) | payer MEDICARE, BC ==
[2019-03-05 08:04] VITALS: BMI 27.4
[2019-03-21] MEDS ORDERED: Midazolam 2 MG/2 ML VIAL ONE (12:17)
[2019-03-21] MEDS ORDERED: Lidocaine 1% Inj (20ml) ONE (12:17)
[2019-03-21] MEDS ORDERED: Propofol 10 mg/ml Inj (20 ML) ONE (12:17)
[2019-03-21] MEDS ORDERED: Sodium Chloride 0.9% 1,000 ML IV SCH (13:15)
[2019-03-21 15:13] VITALS: BP 126/67; PULSE 78; RESP 18; TEMP 97.7; O2SAT 97
== END 2019-03-21 15:01 | disposition home or self-care (01) ==
LOC: ENDO 09:35
PROVIDERS: ATTEND Internal Medicine Gastroenterology
DX: K57.30 Diverticulosis of large intestine without perforation or abscess without bleeding (principal); K64.4 Residual hemorrhoidal skin tags; K64.8 Other hemorrhoids; Z98.0 Intestinal bypass and anastomosis status; R93.3 Abnormal findings on diagnostic imaging of other parts of digestive tract; Z85.038 Personal history of other malignant neoplasm of large intestine; E11.9 Type 2 diabetes mellitus without complications
CPT/HCPCS: 45378; 82948; J2250; J2704; J7030; J7040